=== PATIENT | male | born 1940 | race Caucasian/White ===

== ENCOUNTER 2024-03-17 12:42 | Emergency (ER) | payer MEDICARE, BC, SELFPAY ==
[2024-03-17 13:10] VITALS: BP 109/69; PULSE 75; RESP 18; TEMP 36.7; O2SAT 95; BMI 30.2
--- NOTE | 2024-03-17 14:05 | ED.GENADULT ---
HPI - General Adult General Date Seen: 03/17/24 Chief complaint: Urogenital Problems, Male Stated complaint: Blood in catheter Time Seen by Provider: 03/17/24 13:44 Source: patient and family Mode of arrival: ambulatory Limitations: no limitations History of Present Illness HPI narrative: Patient is an 83-year-old male here with his for evaluation of blood from his Montoya catheter. This was placed a little over a month ago secondary to urinary retention and then he was seen at [facility] on March 15 and it sounds like had a trial of void which he failed. Therefore the catheter was replaced. This morning he noted blood in the bag and they feel that the bag is not filling since then. He does not have abdominal pain although his notes that he did not have any pain even when he had 2600 mL of urine in his bladder. He has not had fevers or chills, flank pain or other complaints. He is on Plavix. Denies prior history of hematuria. Related Data Home Medications ?Medication ?Instructions ?Recorded ?Confirmed amlodipine 5 mg tablet 5 mg PO DAILY 03/17/24 03/17/24 atorvastatin 10 mg tablet 10 mg PO QHS 03/17/24 03/17/24 chlorthalidone 25 mg tablet 25 mg PO DAILY 03/17/24 03/17/24 cholecalciferol (vitamin D3) 50 50 mcg PO DAILY 03/17/24 03/17/24 mcg (2,000 unit) capsule clopidogrel 75 mg tablet 75 mg PO DAILY 03/17/24 03/17/24 dorzolamide 2 % eye drops 1 drp ophthalmic (eye) BID 03/17/24 03/17/24 finasteride 5 mg tablet (Proscar) 5 mg PO DAILY 03/17/24 03/17/24 losartan 100 mg tablet 100 mg PO DAILY 03/17/24 03/17/24 super beta prostate 03/17/24 tamsulosin 0.4 mg capsule (Flomax) 0.8 mg PO DAILY 03/17/24 03/17/24 Allergies Allergy/AdvReac Type Severity Reaction Status Date / Time amlodipine AdvReac Mild Verified 03/17/24 13:17 labetalol AdvReac Mild Dizziness Verified 03/17/24 13:17 omeprazole AdvReac Mild Rash Verified 03/17/24 13:17 Review of Systems Status of ROS: Reports: 6 or more systems reviewed and unremarkable except as noted in History and below Exam Narrative: Exam Narrative: Vital signs reviewed In general, alert, well-appearing male. He has a slight resting tremor. Abdomen: Soft nontender nondistended. No CVA tenderness. : Montoya catheter in place, dark red urine in the bag and no visible drainage from the catheter. Const: Vital Signs, click to edit/add: Vital Signs - 24 hr 03/17/24 13:10 Temperature 98.0 F Pulse Rate [Pulse Oximeter] 75 Respiratory Rate 18 Blood Pressure [Ri ght Upper Arm] 109/69 Pulse Oximetry 95 Oxygen Delivery Me thod Room Air Documenting provider has reviewed patient's vital signs: yes Course Course ED Course: We are going to swap out the catheter for 3 way, will see how much ongoing hematuria there is with the new catheter, consider continuous bladder irrigation if needed. UA pending. We did end up doing continuous bladder irrigation, he did not clear completely but at this time urine is pink rather than dark red. Urinalysis does show greater than 100 red cells and 10-25 white blood cells. Reasonable I think to treat for urinary tract infection. Patient has a family member who is a nurse, [place] and she will be able to help with re-irrigated montgomery of the catheter if needed. Reviewed reasons to be seen again, if the catheter is obstructed by clot, if new symptoms such as fever, flank pain, weakness, vomiting or if recurrent significant bleeding. Otherwise, urology follow-up as planned. Keflex prescribed from [facility]. Vital Signs Vital signs: Initial Vital Signs Temperature 98.0 F 03/17/24 13:10 Temperature Source Temporal Artery Scan 03/17/24 13:10 Pulse Rate 75 03/17/24 13:10 Pulse Rhythm Regular 03/17/24 13:10 Pulse Strength 3+ Normal 03/17/24 13:10 Respiratory Rate 18 03/17/24 13:10 Blood Pressure 109/69 03/17/24 13:10 Blood Pressure Mean 82 03/17/24 13:10 Blood Pressure Position Sitting 03/17/24 13:10 Pulse Oximetry 95 03/17/24 13:10 Oxygen Delivery Method Room Air 03/17/24 13:10 Vital Signs Temperature 98.0 F 03/17/24 13:10 Pulse Rate 75 03/17/24 13:10 Respiratory Rate 18 03/17/24 13:10 Blood Pressure 109/69 03/17/24 13:10 Pulse Oximetry 95 03/17/24 13:10 Oxygen Delivery Method Room Air 03/17/24 13:10 Temperature 98.0 F 03/17/24 13:10 Pulse Rate 75 03/17/24 13:10 Respiratory Rate 18 03/17/24 13:10 Blood Pressure 109/69 03/17/24 13:10 Pulse Oximetry 95 03/17/24 13:10 Oxygen Delivery Method Room Air 03/17/24 13:10 Medical Decision Making Lab Data Labs: Lab Results 03/17/24 Range/Units 14:30 Urine Color Red A (Yellow) Urine Appearance Turbid A (Clear) Urine pH 7.0 (5.0-8.5) Ur Specific [place] 1.020 (1.000-1.030) Urine Protein 3+ A (Negative) Urine Glucose (UA) Negative (Negative) Urine Ketones Negative (Negative) Urine Blood 3+ A (Negative) Urine Nitrite Negative (Negative) Urine Bilirubin Negative (Negative) Urine Urobilinogen 0.2 (0.2-1.0) Ur Leukocyte Esterase Trace A (Negative) Urine RBC >100 A (0-2) Urine WBC 10-25 A (0-5) Urine WBC Clumps Few A (None) Ur Squamous Epith Cells Few (None-Few) Urine Bacteria Moderate A (None) Discharge Plan Discharge Clinical Impression: Urinary tract infection, Hematuria Patient Disposition: Home, Self-Care Condition: Improved Instructions: Urinary Tract Infection in Men (DC), Hematuria (ED) Additional Instructions: Take antibiotic as prescribed. You will likely still see some blood in your urine over the next couple of days. As long as the urine is Teodoro-Aid colored or dining room hostess, you do not need to worry about this. If the urine is dark red again or you have clots which are to prevent in the catheter from draining, you will need to be seen again in the ER. If you have new symptoms such as fevers, flank pain, chills, vomiting, weakness or other worsening, you should likewise go to the ER. Prescriptions: No Action amlodipine 5 mg tablet 5 mg PO DAILY atorvastatin 10 mg tablet 10 mg PO QHS chlorthalidone 25 mg tablet 25 mg PO DAILY clopidogrel 75 mg tablet 75 mg PO DAILY losartan 100 mg tablet 100 mg PO DAILY cholecalciferol (vitamin D3) 50 mcg (2,000 unit) capsule 50 mcg PO DAILY super beta prostate finasteride [Proscar] 5 mg tablet 5 mg PO DAILY tamsulosin [Flomax] 0.4 mg capsule 0.8 mg PO DAILY dorzolamide 2 % drops 1 drp ophthalmic (eye) BID Follow Up/Referrals: Kemar Tanner MD [Primary Care Provider] - Stand Alone Forms: [employer] Info Instructions
[2024-03-17 15:03] LABS: Appearance Urine Turbid (Clear); Bilirubin Urine Negative (Negative); Blood Urine 3+ (Negative); Color Urine Red (Yellow); Glucose Urine Negative (Negative); Ketones Urine Negative (Negative); Leukocyte Esterase Urine Trace (Negative); Nitrite Urine Negative (Negative); Protein Urine 3+ (Negative); Urobilinogen Urine 0.2 (0.2-1.0)
[2024-03-17 15:20] LABS: Bacteria Urine Moderate; RBC Urine >100 (0-2); Squamous Epithelial Cell Urine Few (None-Few)
[2024-03-17 15:22] LABS: WBC Clumps Urine Few
== END 2024-03-17 16:15 | disposition home or self-care (01) ==
PROVIDERS: Emergency Provider Emergency Medicine; PCP Family Medicine
DX: R31.9 Hematuria, unspecified (principal); N39.0 Urinary tract infection, site not specified
CPT/HCPCS: 51702; 81001; 87086; 87186; 99283; 99284

== ENCOUNTER 2024-03-20 13:43 | Inpatient (IN) | payer MEDICARE, BC, SELFPAY ==
[2024-03-20] VITALS (33 sets, daily range): BP systolic 100–145; BP diastolic 47–115; PULSE 73–152; RESP 16–24; TEMP 36.8–37.1; O2SAT 72–99; BMI 30.2; BMI 28.9
--- NOTE | 2024-03-20 14:39 | ED_ITS ---
HPI - General Adult General Date Seen: 03/20/24 Chief complaint: Urogenital Problems, Male Stated complaint: weakness, chills, blood in urine Time Seen by Provider: 03/20/24 13:49 Source: patient and family Mode of arrival: ambulatory Limitations: no limitations History of Present Illness HPI narrative: Patient is an 83-year-old male who I saw a little under a week ago with hematuria. Urine looked possibly infected at that time, he does have an indwelling catheter which was placed about a month ago for urinary retention and he failed trial of void so was replaced on March 15. I put him on Keflex, we did bladder irrigation and urine was improved although not cleared at the time of his discharge. His reports that he has continued to have a little bit of bleeding although not nearly as significant. She did have to irrigate catheter once due to clot. Otherwise, she thinks it is draining fine. He has had a little bit of bleeding around the catheter at times, and sometimes has had some urethral discomfort. He has not had abdominal pain. Did have 1 episode of vomiting last week which did not recur. He says he is having bowel movements, does not feel constipated. No diarrhea or bloody stools. He has not had a fever or chills. She does note that he has become progressively weaker, he notes some nausea, decreased appetite although he has been trying to keep up wi th fluids. He takes Plavix, no other anticoagulation. He has not had chest pain, difficulty breathing, cough, or other upper respiratory symptoms. Related Data Home Medications ?Medication ?Instructions ?Recorded ?Confirmed amlodipine 5 mg tablet 5 mg PO DAILY 03/17/24 03/17/24 atorvastatin 10 mg tablet 10 mg PO QHS 03/17/24 03/17/24 chlorthalidone 25 mg tablet 25 mg PO DAILY 03/17/24 03/17/24 cholecalciferol (vitamin D3) 50 50 mcg PO DAILY 03/17/24 03/17/24 mcg (2,000 unit) capsule clopidogrel 75 mg tablet 75 mg PO DAILY 03/17/24 03/17/24 dorzolamide 2 % eye drops 1 drp ophthalmic (eye) BID 03/17/24 03/17/24 finasteride 5 mg tablet (Proscar) 5 mg PO DAILY 03/17/24 03/17/24 losartan 100 mg tablet 100 mg PO DAILY 03/17/24 03/17/24 super beta prostate 03/17/24 tamsulosin 0.4 mg capsule (Flomax) 0.8 mg PO DAILY 03/17/24 03/17/24 cephalexin 500 mg capsule 500 mg PO 3XD 03/20/24 03/20/24 Allergies Allergy/AdvReac Type Severity Reaction Status Date / Time amlodipine AdvReac Mild Verified 03/17/24 13:17 labetalol AdvReac Mild Dizziness Verified 03/17/24 13:17 omeprazole AdvReac Mild Rash Verified 03/17/24 13:17 Review of Systems Status of ROS: Reports: 10 or more systems reviewed and unremarkable except as noted in History and below [facility] Social History Smoking Status: Never smoker Do you use any of these nicotine containing products: None Second hand tobacco smoke exposure: No How often do you have a drink containing alcohol: never AUDIT-C Alcohol total score: 0 Non-prescribed substance use: denies use Exam Narrative: Exam Narrative: Vital signs as noted above. In general, an alert, nontoxic elderly male, looks fatigued and more worn out than last time I saw him. Head: Normocephalic, atraumatic. Eyes: Pupils are equal reactive. Extraocular movements are full. Conjunctivae are normal. ENT: Mucous membranes are slightly dry. Neck: Supple without lymphadenopathy. Heart: Tachycardic, irregularly irregular. No significant murmur. Lungs: Clear bilaterally. No increased work of breathing, crackles or wheezes. Abdomen: Soft and nontender. No organomegaly. Extremities: Well perfused. No edema. No calf tenderness. Pulses intact. Neurologic: Patient is alert and oriented to person and place. Speech is fluent. Face is symmetric. Moves all extremities equally. Baseline tremor noted in left upper extremity. Affect: Normal. Skin: Warm and dry. Well perfused. Const: Vital Signs, click to edit/add: Vital Signs - 24 hr 03/20/24 13:56 03/20/24 13:59 03/20/24 14:00 Temperature 98.8 F Pulse Rate 152 H 92 Pulse Rate [Pulse Oximeter] 109 H Respiratory Rate 24 Blood Pressure 119/59 L Blood Pressure [Ri ght Upper Arm] 119/59 L Pulse Oximetry 95 72 L 96 Oxygen Delivery Me thod Room Air 03/20/24 14:15 03/20/24 14:22 03/20/24 14:30 Temperature Pulse Rate 99 99 97 Pulse Rate [Pulse Oximeter] Respiratory Rate 18 Blood Pressure 111/47 L Blood Pressure [Ri ght Upper Arm] Pulse Oximetry 95 96 95 Oxygen Delivery Me thod 03/20/24 14:56 03/20/24 14:57 03/20/24 14:58 Temperature Pulse Rate 89 92 90 Pulse Rate [Pulse Oximeter] Respiratory Rate Blood Pressure 145/72 H Blood Pressure [Ri ght Upper Arm] Pulse Oximetry 96 95 95 Oxygen Delivery Me thod 03/20/24 15:00 03/20/24 15:02 03/20/24 15:15 Temperature Pulse Rate 89 89 84 Pulse Rate [Pulse Oximeter] Respiratory Rate Blood Pressure 100/64 Blood Pressure [Ri ght Upper Arm] Pulse Oximetry 95 94 95 Oxygen Delivery Me thod 03/20/24 15:21 03/20/24 15:30 03/20/24 15:42 Temperature Pulse Rate 81 80 83 Pulse Rate [Pulse Oximeter] Respiratory Rate 18 Blood Pressure 113/58 L 121/62 Blood Pressure [Ri ght Upper Arm] Pulse Oximetry 94 96 97 Oxygen Delivery Me thod 03/20/24 16:01 03/20/24 16:02 03/20/24 16:15 Temperature Pulse Rate 80 80 79 Pulse Rate [Pulse Oximeter] Respiratory Rate Blood Pressure 106/86 Blood Pressure [Ri ght Upper Arm] Pulse Oximetry 95 97 96 Oxygen Delivery Me thod 03/20/24 16:22 03/20/24 16:30 03/20/24 16:41 Temperature Pulse Rate 75 76 73 Pulse Rate [Pulse Oximeter] Respiratory Rate Blood Pressure 105/64 Blood Pressure [Ri ght Upper Arm] Pulse Oximetry 96 95 95 Oxygen Delivery Me thod 03/20/24 16:45 03/20/24 17:00 03/20/24 17:02 Temperature Pulse Rate 75 82 82 Pulse Rate [Pulse Oximeter] Respiratory Rate Blood Pressure 128/115 H Blood Pressure [Ri ght Upper Arm] Pulse Oximetry 96 98 98 Oxygen Delivery Me thod Documenting provider has reviewed patient's vital signs: yes Course Course ED Course: Patient presents with weakness, fatigue, anorexia nausea on the heels of hematuria last week. Diagnostic considerations would include anemia from blood loss, dehydration, infection related to prior UTI verses other, I did review the urine culture from his previous visit. This grew out a pansensitive E coli. Workup here today shows a markedly elevated white blood cell count of 23.7. The hemoglobin was 11.3. Metabolic panel shows a sodium of 126, chloride 95, BUN of 30, creatinine of 1.6. His blood sugar was 135, LFTs notable for a total bilirubin of 2.1 but otherwise normal. CRP elevated at 23.5. TSH was mildly elevated at 4.21, free T4 pending I anticipate this will be normal. Urinalysis continues to show greater than 100 red cells and 10-25 white blood cells, difficult to interpret in the setting of an indwelling catheter. Given is elevated white blood cell count and persistence of symptoms despite appropriate antibiotic treatment, I did do a CT scan today of the chest abdomen pelvis to look for an occult pneumonia, kidney stone, pyelonephritis, or other intra- abdominal process which might be contributing to his presentation today. By my review, this shows significant thickening of the bladder, I did not see any kidney stones, hydronephrosis or pneumonia. radiology read as follows:FINDINGS: The absence of intravenous contrast limits evaluation of solid organs and vasculature. Chest: Cardiovascular structures: Heart size is normal. The main pulmonary artery is mildly enlarged measuring 3.5 cm in diameter suggestive of pulmonary arterial hypertension. Normal caliber thoracic aorta. Severe coronary artery calcification. Mediastinum and celine: No mediastinal lymphadenopathy or evidence of hilar mass. Chest wall and axilla: Mild gynecomastia on the left. No axillary lymphadenopathy. Lungs: No suspicious pulmonary nodule. No consolidation, pleural effusion or pneumothorax. The central airways are clear. Abdomen and Pelvis: Liver: Unremarkable. Gallbladder and bile ducts: Unremarkable. Spleen: Unremarkable. Pancreas: Unremarkable. Adrenal glands: Unremarkable. Kidneys: There is mild haziness in the left renal hilum. The ureters appear normal. No kidney or ureteral stones and no hydronephrosis. GI tract: Colonic diverticulosis. No evidence of acute diverticulitis. No bowel obstruction or inflammation. Appendix is not definitely visualized. No inflammatory changes in the right lower quadrant to suggest acute appendicitis. Vascular structures: Atherosclerotic calcification of the abdominal aorta and common iliac arteries which are normal in caliber. Lymph nodes: Unremarkable. Miscellaneous: No ascites. No free air. There is a partially visualized 5.5 x 3.7 cm lipoma in the right sartorius muscle. Small fat containing umbilical hernia. Pelvic Organs: Diffuse urinary bladder wall thickening. A Montoya catheter is in place. A foci of gas density in the urinary bladder is likely related to recent instrumentation. There is a small amount of dense material in the urinary bladder due to either blood or injected contrast material. The prostate is enlarged. Bones: Flowing anterior osteophytes in the thoracic spine suggestive of DISH. The bones are diffusely demineralized. Degenerative changes in the lumbar spine and at the hips. No acute osseous abnormality. No suspicious bone lesion. IMPRESSION: 1. There is diffuse thickening of the urinary bladder wall which is nonspecific in the setting of chronic bladder outlet obstruction. The Montoya catheter is appropriately positioned. 2. There is a small amount of dense material within the urinary bladder which c ould be blood products or contrast material. 3. There is mild haziness of the fat in the left renal hilum raising the question of pyelonephritis. 4. No acute abnormality in the chest. 5. Mild enlargement of the main pulmonary artery is suggestive of pulmonary arterial hypertension. Patient feels somewhat better after fluids but still quite fatigued. I think given his age, marked leukocytosis, and failure to improve on antibiotics at home, he would be best served by admission to the hospital for IV antibiotics and observation for a day. He is agreeable to that. Discussed with Dr. Villalobos who will admit patient to hospitalist service. Blood culture was ordered and he was given a g of Rocephin IV. Vital Signs Vital signs: Initial Vital Signs Temperature 98.8 F 03/20/24 13:56 Temperature Source Temporal Artery Scan 03/20/24 13:56 Pulse Rate 109 H 03/20/24 13:56 Respiratory Rate 03/20/24 13:56 Blood Pressure 119/59 L 03/20/24 13:56 Blood Pressure Mean 79 03/20/24 13:56 Blood Pressure Position Sitting 03/20/24 13:56 Pulse Oximetry 95 03/20/24 13:56 Oxygen Delivery Method Room Air 03/20/24 13:56 Vital Signs Temperature 98.8 F 03/20/24 13:56 Pulse Rate 109 H 03/20/24 13:56 Respiratory Rate 03/20/24 13:56 Blood Pressure 119/59 L 03/20/24 13:56 Pulse Oximetry 95 03/20/24 13:56 Oxygen Delivery Method Room Air 03/20/24 13:56 Temperature 98.8 F 03/20/24 13:56 Pulse Rate 82 03/20/24 17:02 Respiratory Rate 18 03/20/24 15:42 Blood Pressure 128/115 H 03/20/24 17:02 Pulse Oximetry 98 03/20/24 17:02 Oxygen Delivery Method Room Air 03/20/24 13:56 Medications Administered Medications: Discontinued Medications Generic Name Dose Route Start Last Admin Trade Name Freq PRN Reason Stop Dose Admin Sodium Chloride 1,000 mls @ 1,000 mls/hr 03/20/24 14:15 03/20/24 16:18 0.9 % Sodium Chloride 1000 Ml IV 03/20/24 15:14 Infused .Q1H DERICK Infusion Ondansetron HCl 4 mg 03/20/24 14:36 03/20/24 14:59 Ondansetron 2 Mg/Ml Inj IVP 03/20/24 14:37 4 mg ONCE ONE Administration Medical Decision Making Lab Data Labs: Lab Results 03/20/24 03/20/24 Range/Units 14:35 15:35 WBC 23.68 H (4.50-11.00) K/uL RBC 3.75 L (4.30-5.90) m/uL Hgb 11.3 L (13.5-17.5) gm/dL Hct 33.0 L (37.0-53.0) % MCV 88 (80-100) fL MCH 30 (26-34) pg MCHC 34 (32-36) gm/dL RDW Coeff of Rossy 13.0 (11.5-15.5) % Plt Count 238 (140-440) K/uL Neut % (Auto) 86.8 H (42.0-72.0) % Lymph % (Auto) 4.7 L (20-44) % Steele % (Auto) 8.0 (0.0-11.0) % Eos % (Auto) 0.0 (0.0-7.0) % Baso % (Auto) 0.0 (0.0-3.0) % Neut # (Auto) 20.60 H (1.7-7.0) K/uL Lymph # (Auto) 1.10 (0.90-2.90) K/uL Steele # (Auto) 1.90 H (0.00-0.90) K/UL Eos # (Auto) 0.00 (0.00-0.50) K/uL Baso # (Auto) 0.00 (0.00-0.30) K/uL Abs Immat Gran (auto) 0.10 (0.00-0.30) K/uL Imm/Tot Granulo (auto) 0.5 % Sodium 126 L (135-149) mmol/L Potassium 3.6 (3.6-5.1) mmol/L Chloride 95 L (96-114) mmol/L Carbon Dioxide 22 (20-32) mmol/L Anion Gap 9 (7-15) mEq/L BUN 30 (7-30) mg/dL Creatinine 1.6 H (0.5-1.5) mg/dL Estimated Creat Clear 39.96 Estimated GFR 42 ml/min Glucose 135 H (60-115) mg/dL Lactate 1.3 (0.5-1.9) mmol/L Calcium 8.9 (8.4-10.6) mg/dL Total Bilirubin 2.1 H (0.1-1.5) mg/dL Direct Bilirubin 0.4 (0.0-0.5) mg/dL AST 21 (12-35) U/L ALT 16 (4-50) U/L Alkaline Phosphatase 66 (40-150) U/L C-Reactive Protein 23.5 H (0.5-1.0) mg/dL Total Protein 7.3 (6.0-8.3) g/dL Albumin 4.2 (3.3-5.0) g/dL TSH 4.210 H (0.270-4.200) uIU/mL Urine Color Red A (Yellow) Urine Appearance Clear (Clear) Urine pH 6.0 (5.0-8.5) Ur Specific [place] 1.025 (1.000-1.030) Urine Protein 3+ A (Negative) Urine Glucose (UA) Negative (Negative) Urine Ketones Negative (Negative) Urine Blood 3+ A (Negative) Urine Nitrite Negative (Negative) Urine Bilirubin Negative (Negative) Urine Urobilinogen 2.0 A (0.2-1.0) Ur Leukocyte Esterase Trace A (Negative) Urine RBC >100 A (0-2) Urine WBC 10-25 A (0-5) Ur Squamous Epith Cells None (None-Few) Urine Bacteria Few A (None) POC Troponin I 0.03 (0.01-0.04) ng/ml Discharge Plan Discharge Clinical Impression: Acute pyelonephritis, Weakness Patient Disposition: Admitted As Observation Condition: Stable
[2024-03-20 14:45] LABS: Lactate Sepsis w/Reflex* 1.3 mmol/L (0.5-1.9)
[2024-03-20 14:47] LABS: Hemoglobin* 11.3 gm/dL (13.5-17.5); Immature Granulocytes Pct Auto 0.5 %; Lymphocytes Percent Auto 4.7 % (20-44); Mean Corpuscular HGB Conc 34 gm/dL (32-36); Mean Corpuscular Hemoglobin 30 pg (26-34); Mean Corpuscular Volume 88 fL (80-100); Neutrophils Percent Auto 86.8 % (42.0-72.0); Platelet Count* 238 K/uL (140-440); Red Blood Count 3.75 m/uL (4.30-5.90); White Blood Count* 23.68 K/uL (4.50-11.00)
[2024-03-20 14:50] LABS: Slide Review Reflex No
[2024-03-20] MEDS: 0.9 % SODIUM CHLORIDE 1000 ml 1,000 ML IV (14:58)
[2024-03-20] MEDS: ONDANSETRON 2 MG/ML inj 4 MG IVP (14:59)
[2024-03-20 15:00] LABS: Albumin* 4.2 g/dL (3.3-5.0); Chloride* 95 mmol/L (96-114); Sodium* 126 mmol/L (135-149)
[2024-03-20 15:01] LABS: Potassium* 3.6 mmol/L (3.6-5.1)
[2024-03-20 15:02] LABS: Creatinine* 1.6 mg/dL (0.5-1.5); Est. Creatinine Clearance* 39.96; Estimated Glomerular Filt Rate 42 ml/min
[2024-03-20 15:03] LABS: Alanine Aminotransferase* 16 U/L (4-50); Alkaline Phosphatase* 66 U/L (40-150); Anion Gap 9 mEq/L (7-15); Aspartate Amino Transferase* 21 U/L (12-35); Bilirubin Direct* 0.4 mg/dL (0.0-0.5); Bilirubin Total* 2.1 mg/dL (0.1-1.5); Blood Urea Nitrogen* 30 mg/dL (7-30); Carbon Dioxide* 22 mmol/L (20-32); Glucose* 135 mg/dL (60-115); Total Protein* 7.3 g/dL (6.0-8.3)
--- NOTE | 2024-03-20 15:03 | CRLHL7_ITS ---
For Patients: As a result of the 21st Century Cures Act, medical imaging exams and procedure reports are released immediately into your electronic medical record. You may view this report before your referring provider. If you have questions, please contact your health care provider. INDICATION: Hematuria, weakness and elevated white blood cell count. History of UTI. New Montoya catheter inserted about 1 week ago. TECHNIQUE: Noncontrast CT chest, abdomen and pelvis COMPARISON: Chest CT 12/01/2016. FINDINGS: The absence of intravenous contrast limits evaluation of solid organs and vasculature. Chest: Cardiovascular structures: Heart size is normal. The main pulmonary artery is mildly enlarged measuring 3.5 cm in diameter suggestive of pulmonary arterial hypertension. Normal caliber thoracic aorta. Severe coronary artery calcification. Mediastinum and celine: No mediastinal lymphadenopathy or evidence of hilar mass. Chest wall and axilla: Mild gynecomastia on the left. No axillary lymphadenopathy. Lungs: No suspicious pulmonary nodule. No consolidation, pleural effusion or pneumothorax. The central airways are clear. Abdomen and Pelvis: Liver: Unremarkable. Gallbladder and bile ducts: Unremarkable. Spleen: Unremarkable. Pancreas: Unremarkable. Adrenal glands: Unremarkable. Kidneys: There is mild haziness in the left renal hilum. The ureters appear normal. No kidney or ureteral stones and no hydronephrosis. GI tract: Colonic diverticulosis. No evidence of acute diverticulitis. No bowel obstruction or inflammation. Appendix is not definitely visualized. No inflammatory changes in the right lower quadrant to suggest acute appendicitis. Vascular structures: Atherosclerotic calcification of the abdominal aorta and common iliac arteries which are normal in caliber. Lymph nodes: Unremarkable. Miscellaneous: No ascites. No free air. There is a partially visualized 5.5 x 3.7 cm lipoma in the right sartorius muscle. Small fat containing umbilical hernia. Pelvic Organs: Diffuse urinary bladder wall thickening. A Montoya catheter is in place. A foci of gas density in the urinary bladder is likely related to recent instrumentation. There is a small amount of dense material in the urinary bladder due to either blood or injected contrast material. The prostate is enlarged. Bones: Flowing anterior osteophytes in the thoracic spine suggestive of DISH. The bones are diffusely demineralized. Degenerative changes in the lumbar spine and at the hips. No acute osseous abnormality. No suspicious bone lesion. IMPRESSION: 1. There is diffuse thickening of the urinary bladder wall which is nonspecific in the setting of chronic bladder outlet obstruction. The Montoya catheter is appropriately positioned. 2. There is a small amount of dense material within the urinary bladder which could be blood products or contrast material. 3. There is mild haziness of the fat in the left renal hilum raising the question of pyelonephritis. 4. No acute abnormality in the chest. 5. Mild enlargement of the main pulmonary artery is suggestive of pulmonary arterial hypertension. Please note that all CT scans at this facility use dose modulation, iterative reconstruction, and/or weight-based dosing when appropriate to reduce radiation dose to as low as reasonably achievable. Dictated by Aminta Benjamin MD @ 03/20/2024 4:45:48 PM (Electronically Signed)
[2024-03-20 15:04] LABS: Calcium* 8.9 mg/dL (8.4-10.6)
[2024-03-20 15:06] LABS: Troponin, Point-of-Care* 0.03 ng/ml (0.01-0.04)
[2024-03-20 15:19] LABS: C Reactive Protein* 23.5 mg/dL (0.5-1.0)
[2024-03-20 16:01] LABS: Appearance Urine Clear (Clear); Bilirubin Urine Negative (Negative); Blood Urine 3+ (Negative); Glucose Urine Negative (Negative); Ketones Urine Negative (Negative); Leukocyte Esterase Urine Trace (Negative); Nitrite Urine Negative (Negative); Protein Urine 3+ (Negative); Specific Gravity Urine 1.025 (1.000-1.030)
[2024-03-20 16:07] LABS: Bacteria Urine Few; Color Urine Red (Yellow); RBC Urine >100 (0-2)
[2024-03-20 17:27] LABS: Free T4 Free Thyroxine* 1.67 ng/dL (0.70-1.85)
[2024-03-20] MEDS: cefTRIAXone 1 GM in 0.9 % SODIUM CHLORIDE Mini-bag 100 ML IVPB ×2 (17:36→19:02)
--- NOTE | 2024-03-20 18:14 | P.IMHP_ITS ---
Hospitalist- H&P: HPI History of Present Illness Date Seen: 03/20/24 Chief complaint: weakness, chills, blood in urine Narrative: Rad Aburto is a 83 year old male admitted with a 1 month history of urinary retention treated with Montoya catheter, 3 day history of hematuria and pansensit kev E coli UTI treated with Keflex and now a 3 day history of progressive weakness and loss of appetite. On 02/16/2024 he was having difficulties with voiding. He presented to the clinic where he was found to have 2600 mL of retained urine in his bladder. Montoya catheter was placed. Further next month this worked well for him. He was feeling well. He was able to travel and manage his catheter without difficulties. On March 15 he was seen by his urologist for trial of voiding and this failed so catheter was placed again. He remains on finasteride and tamsulosin for his urinary retention On March 17 he presented to the emergency department with grossly bloody urine. He received continuous bladder irrigation in the emergency department which cleared his hematuria. At that time he was suspected of having a urinary tract infection. He was started on Keflex her for this. Over the next 3 days he has been progressively getting worse. Is bloody urine returned he has been getting weaker, he has not been eating much, he vomited once 2 days ago, he has had some chills but no fever, and he has had bladder spasms. He normally his independent with ambulation and uses a cane. In the last few days he has gotten weak to the point where he can hardly walk at all. He ambulates slowly and he has a tremor primarily in his left hand. He has had a previous stroke causing a left visual field cut but no other notable motor disability. Review of Systems Narrative: Prior to the last 3 days he has been generally doing well with his catheter and otherwise feeling well [facility] Medical History (Updated 03/20/24 @ 18:28 by Moo Villalobos MD) Acute kidney injury superimposed on chronic kidney disease ?N17.9 - Acute kidney failure, unspecified (ICD-10) ?N18.9 - Chronic kidney disease, unspecified (ICD-10) Sensorineural hearing loss ?H90.5 - Unspecified sensorineural hearing loss (ICD-10) Elevated PSA ?R97.20 - Elevated prostate specific antigen [PSA] (ICD-10) Hyperlipidemia ?E78.5 - Hyperlipidemia, unspecified (ICD-10) Hypertension ?I10 - Essential (primary) hypertension (ICD-10) Occipital stroke ?I63.9 - Cerebral infarction, unspecified (ICD-10) Urinary retention ?R33.9 - Retention of urine, unspecified (ICD-10) Tremor ?R25.1 - Tremor, unspecified (ICD-10) Surgical History (Updated 03/20/24 @ 18:28 by Moo Villalobos MD) H/O cataract extraction ?Z98.49 - Cataract extraction status, unspecified eye (ICD-10) History of arthroplasty of left knee ?Z96.652 - Presence of left artificial knee joint (ICD-10) S/P arthroscopy of left shoulder ?Z98.890 - Other specified postprocedural states (ICD-10) Family History (Updated 03/20/24 @ 18:29 by Moo Villalobos MD) Other Parkinsons disease Social History (Updated 03/20/24 @ 18:30 by Moo Villalobos MD) Narrative: 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 Code status is full. He does not drink. Remote history of smoking. Smoking Status: Never smoker Do you use any of these nicotine containing products: None Second hand tobacco smoke exposure: No How often do you have a drink containing alcohol: never AUDIT-C Alcohol total score: 0 Non-prescribed substance use: denies use Meds Home Medications and Allergies Home Medications ?Medication ?Instructions ?Recorded ?Confirmed ?Type amlodipine 5 mg tablet 5 mg PO DAILY 03/17/24 03/17/24 History atorvastatin 10 mg tablet 10 mg PO QHS 03/17/24 03/17/24 History chlorthalidone 25 mg tablet 25 mg PO DAILY 03/17/24 03/17/24 History cholecalciferol (vitamin D3) 50 50 mcg PO DAILY 03/17/24 03/17/24 History mcg (2,000 unit) capsule clopidogrel 75 mg tablet 75 mg PO DAILY 03/17/24 03/17/24 History dorzolamide 2 % eye drops 1 drp ophthalmic (eye) BID 03/17/24 03/17/24 History finasteride 5 mg tablet (Proscar) 5 mg PO DAILY 03/17/24 03/17/24 History losartan 100 mg tablet 100 mg PO DAILY 03/17/24 03/17/24 History super beta prostate 03/17/24 History tamsulosin 0.4 mg capsule (Flomax) 0.8 mg PO DAILY 03/17/24 03/17/24 History cephalexin 500 mg capsule 500 mg PO 3XD 03/20/24 03/20/24 History Allergies Allergy/AdvReac Type Severity Reaction Status Date / Time amlodipine AdvReac Mild Verified 03/17/24 13:17 labetalol AdvReac Mild Dizziness Verified 03/17/24 13:17 omeprazole AdvReac Mild Rash Verified 03/17/24 13:17 Exam Narrative: Exam Narrative: He is alert and appears in no distress. He is oriented to his circumstances. He gives his own history with his giving most of the details in his history. Head is without trauma. Eyes are normal status post cataract surgery. He has a left visual field cut in both eyes. Face without asymmetry. Oropharynx with dry mucous membranes. Neck is supple without mass or adenopathy. Respirations are clear to auscultation. Cardiovascular: S1, S2, regular rate and rhythm. No murmur gallop or rub. Abdomen: Bowel sounds active. Abdomen is soft without tenderness or mass. Upper extremities are normal in appearance. Left hand has a coarse tremor in the left hand, mostly at rest. No marked rigidity. Some bradykinesia. Catheters placed draining a maroon-colored urine. Extremities without edema. Intact pedal pulses. Symmetric and full strength in all 4 extremities. Tremor only seen in left hand but bradykinesia in all 4 extremities Const: Vital Signs, click to edit/add: Vital Signs - 24 hr 03/20/24 13:56 03/20/24 13:59 03/20/24 14:00 Temperature 98.8 F Pulse Rate 152 H 92 Pulse Rate [Pulse Oximeter] 109 H Respiratory Rate 24 Blood Pressure 119/59 L Blood Pressure [Ri ght Upper Arm] 119/59 L Pulse Oximetry 95 72 L 96 Oxygen Delivery Me thod Room Air 03/20/24 14:15 03/20/24 14:22 03/20/24 14:30 Temperature Pulse Rate 99 99 97 Pulse Rate [Pulse Oximeter] Respiratory Rate 18 Blood Pressure 111/47 L Blood Pressure [Ri ght Upper Arm] Pulse Oximetry 95 96 95 Oxygen Delivery Me thod 03/20/24 14:56 03/20/24 14:57 03/20/24 14:58 Temperature Pulse Rate 89 92 90 Pulse Rate [Pulse Oximeter] Respiratory Rate Blood Pressure 145/72 H Blood Pressure [Ri ght Upper Arm] Pulse Oximetry 96 95 95 Oxygen Delivery Me thod 03/20/24 15:00 03/20/24 15:02 03/20/24 15:15 Temperature Pulse Rate 89 89 84 Pulse Rate [Pulse Oximeter] Respiratory Rate Blood Pressure 100/64 Blood Pressure [Ri ght Upper Arm] Pulse Oximetry 95 94 95 Oxygen Delivery Me thod 03/20/24 15:21 03/20/24 15:30 03/20/24 15:42 Temperature Pulse Rate 81 80 83 Pulse Rate [Pulse Oximeter] Respiratory Rate 18 Blood Pressure 113/58 L 121/62 Blood Pressure [Ri ght Upper Arm] Pulse Oximetry 94 96 97 Oxygen Delivery Md thod 03/20/24 16:01 03/20/24 16:02 03/20/24 16:15 Temperature Pulse Rate 80 80 79 Pulse Rate [Pulse Oximeter] Respiratory Rate Blood Pressure 106/86 Blood Pressure [Ri ght Upper Arm] Pulse Oximetry 95 97 96 Oxygen Delivery Md thod 03/20/24 16:22 03/20/24 16:30 03/20/24 16:41 Temperature Pulse Rate 75 76 73 Pulse Rate [Pulse Oximeter] Respiratory Rate Blood Pressure 105/64 Blood Pressure [Ri ght Upper Arm] Pulse Oximetry 96 95 95 Oxygen Delivery Md thod 03/20/24 16:45 03/20/24 17:00 03/20/24 17:02 Temperature Pulse Rate 75 82 82 Pulse Rate [Pulse Oximeter] Respiratory Rate Blood Pressure 128/115 H Blood Pressure [Ri ght Upper Arm] Pulse Oximetry 96 98 98 Oxygen Delivery Md thod 03/20/24 17:03 03/20/24 17:15 03/20/24 17:22 Temperature Pulse Rate 80 77 83 Pulse Rate [Pulse Oximeter] Respiratory Rate Blood Pressure 107/79 Blood Pressure [Ri ght Upper Arm] Pulse Oximetry 97 96 98 Oxygen Delivery Md thod 03/20/24 17:30 03/20/24 17:43 03/20/24 17:45 Temperature Pulse Rate 84 78 80 Pulse Rate [Pulse Oximeter] Respiratory Rate Blood Pressure 111/66 Blood Pressure [Ri ght Upper Arm] Pulse Oximetry 98 96 97 Oxygen Delivery Me thod Documenting provider has reviewed patient's vital signs: yes Hospitalist - H&P: Result Labs Labs: Short CBC 03/20/24 Range/Units 14:35 WBC 23.68 H (4.50-11.00) K/uL Hgb 11.3 L (13.5-17.5) gm/dL Hct 33.0 L (37.0-53.0) % Plt Count 238 (140-440) K/uL BMP 03/20/24 14:35 Sodium 126 L Potassium 3.6 Chloride 95 L Carbon Dioxide 22 BUN 30 Creatinine 1.6 H Glucose 135 H Calcium 8.9 Liver Function 03/20/24 Range/Units 14:35 Total Bilirubin 2.1 H (0.1-1.5) mg/dL Direct Bilirubin 0.4 (0.0-0.5) mg/dL AST 21 (12-35) U/L ALT 16 (4-50) U/L Alkaline Phosphatase 66 (40-150) U/L Albumin 4.2 (3.3-5.0) g/dL Urine 03/20/24 Range/Units 15:35 Urine Color Red A (Yellow) Urine Appearance Clear (Clear) Urine pH 6.0 (5.0-8.5) Ur Specific [place] 1.025 (1.000-1.030) Urine Protein 3+ A (Negative) Urine Glucose (UA) Negative (Negative) Imaging CT Chest/Ab/Pelvis: Radiologist's impression: INDICATION: Hematuria, weakness and elevated white blood cell count. History of UTI. New Montoya catheter inserted about 1 week ago. TECHNIQUE: Noncontrast CT chest, abdomen and pelvis COMPARISON: Chest CT 12/01/2016. FINDINGS: The absence of intravenous contrast limits evaluation of solid organs and vasculature. Chest: Cardiovascular structures: Heart size is normal. The main pulmonary artery is mildly enlarged measuring 3.5 cm in diameter suggestive of pulmonary arterial hypertension. Normal caliber thoracic aorta. Severe coronary artery calcification. Mediastinum and celine: No mediastinal lymphadenopathy or evidence of hilar mass. Chest wall and axilla: Mild gynecomastia on the left. No axillary lymphadenopathy. Lungs: No suspicious pulmonary nodule. No consolidation, pleural effusion or pneumothorax. The central airways are clear. Abdomen and Pelvis: Liver: Unremarkable. Gallbladder and bile ducts: Unremarkable. Spleen: Unremarkable. Pancreas: Unremarkable. Adrenal glands: Unremarkable. Kidneys: There is mild haziness in the left renal hilum. The ureters appear normal. No kidney or ureteral stones and no hydronephrosis. GI tract: Colonic diverticulosis. No evidence of acute diverticulitis. No bowel obstruction or inflammation. Appendix is not definitely visualized. No inflammatory changes in the right lower quadrant to suggest acute appendicitis. Vascular structures: Atherosclerotic calcification of the abdominal aorta and common iliac arteries which are normal in caliber. Lymph nodes: Unremarkable. Miscellaneous: No ascites. No free air. There is a partially visualized 5.5 x 3.7 cm lipoma in the right sartorius muscle. Small fat containing umbilical hernia. Pelvic Organs: Diffuse urinary bladder wall thickening. A Montoya catheter is in place. A foci of gas density in the urinary bladder is likely related to recent instrumentation. There is a small amount of dense material in the urinary bladder due to either blood or injected contrast material. The prostate is enlarged. Bones: Flowing anterior osteophytes in the thoracic spine suggestive of DISH. The bones are diffusely demineralized. Degenerative changes in the lumbar spine and at the hips. No acute osseous abnormality. No suspicious bone lesion. IMPRESSION: 1. There is diffuse thickening of the urinary bladder wall which is nonspecific in the setting of chronic bladder outlet obstruction. The Montoya catheter is appropriately positioned. 2. There is a small amount of dense material within the urinary bladder which could be blood products or contrast material. 3. There is mild haziness of the fat in the left renal hilum raising the question of pyelonephritis. 4. No acute abnormality in the chest. 5. Mild enlargement of the main pulmonary artery is suggestive of pulmonary arterial hypertension. Assessment and Plan Assessment and plan (1) Acute pyelonephritis: Problem comment: Despite appropriate outpatient therapy for pansensitive E coli UTI with Keflex he appears to be more ill. CT scan suggests pyelonephritis as well as thickened bladder wall with hemorrhagic cystitis. Failure of outpatient therapy over the last 3 days. Status: Acute (2) Weakness: Problem comment: Acute on chronic weakness associated with current acute infection Status: Acute (3) Urinary retention: Problem comment: On 02/14/2020 for had 2600 mL of retained urine. On March 15 failed a trial of voiding Status: Acute (4) Hyponatremia: Problem comment: Likely due to acute illness with poor oral solute intake but ongoing water ingestion. Status: Acute (5) Acute kidney injury superimposed on chronic kidney disease: Problem comment: Creatinine today is 1.6. Baseline creatinine is 1.2 Status: Acute (6) Hypertension: Problem comment: Hold antihypertensives while acutely ill. Reassess daily Status: Acute (7) Tremor: Problem comment: Chronic tremor of the left hand suspicious for parkinsonian type course resting tremor. Will give a trial of Sinemet to see if this is beneficial. Status: Acute (8) Hematuria: Problem comment: Hemorrhagic cystitis complicated by indwelling Montoya catheter Status: Acute Plan Patient is admitted to the hospital for IV antibiotics for his pyelonephritis and hemorrhagic cystitis and ongoing evaluation and management of the multiple other problems noted above. Total Time Spent Total Time Spent: Total time spent today is 90 minutes
[2024-03-20] MEDS: ATORVASTATIN 10 MG TABLET PO (20:18)
[2024-03-20] MEDS: SODIUM CHLORIDE 0.9 % (FLUSH) 10 ML SYRINGE 5 ML IVF (20:18)
[2024-03-20] MEDS: CARBIDOPA-LEVODOPA 25-100 TABLET 1 TAB PO (20:32)
[2024-03-20] MEDS: DORZOLAMIDE HCL 2 % OPHTH DROP 1 DROP EYE-BOTH (20:41)
[2024-03-20] MEDS: 0.9 % SODIUM CHLORIDE 250 ml IV (21:00)
--- NOTE | 2024-03-20 22:30 | PC.NURSE ---
End of Shift: Patient admitted to 256. Pleasant and cooperative. Afebrile. Up with SBA and cane. Montoya patent with 625 mL of bloody urine output. No clots noted. C/o pain with bladder spasms. Tolerating fluids and applesauce with no nausea.
[2024-03-20] MEDS: CALCIUM CARBONATE 500 MG CHEW PO (23:49)
[2024-03-21] VITALS (8 sets, daily range): BP systolic 91–116; BP diastolic 55–80; PULSE 66–96; RESP 18–28; TEMP 36.4–37.4; O2SAT 94–97
--- NOTE | 2024-03-21 07:07 | PC.NURSE ---
End of shift: Pleasant and cooperative with cares. Denies any pain this shift but reports intermittent bladder spasms. العلي patent, gross hematuria continues, no clots noted in العلي bag or tubing. SBA with ambulation
[2024-03-21 07:25] LABS: Basophils Percent Auto 0.1 % (0.0-3.0); Eosinophils Percent Auto 0.1 % (0.0-7.0); Hematocrit 30.4 % (37.0-53.0); Hemoglobin* 10.4 gm/dL (13.5-17.5); Immature Granulocytes Pct Auto 0.4 %; Lymphocytes Percent Auto 5.7 % (20-44); Mean Corpuscular HGB Conc 34 gm/dL (32-36); Mean Corpuscular Hemoglobin 30 pg (26-34); Mean Corpuscular Volume 88 fL (80-100); Monocytes Percent Auto 6.5 % (0.0-11.0); Neutrophils Percent Auto 87.2 % (42.0-72.0); Platelet Count* 217 K/uL (140-440); RDW Coefficient of Variation % 12.7 % (11.5-15.5); Red Blood Count 3.45 m/uL (4.30-5.90); White Blood Count* 19.78 K/uL (4.50-11.00)
[2024-03-21 07:33] LABS: Chloride* 97 mmol/L (96-114); Potassium* 3.1 mmol/L (3.6-5.1); Sodium* 127 mmol/L (135-149)
[2024-03-21 07:36] LABS: Anion Gap 6 mEq/L (7-15); Blood Urea Nitrogen* 24 mg/dL (7-30); Carbon Dioxide* 24 mmol/L (20-32); Creatinine* 1.4 mg/dL (0.5-1.5); Est. Creatinine Clearance* 45.67; Estimated Glomerular Filt Rate 50 ml/min
[2024-03-21 07:37] LABS: Calcium* 8.7 mg/dL (8.4-10.6); Glucose* 106 mg/dL (60-115)
[2024-03-21 07:43] LABS: Slide Review Reflex No
[2024-03-21 08:03] LABS: C Reactive Protein* 22.4 mg/dL (0.5-1.0)
[2024-03-21] MEDS: TAMSULOSIN HCL 0.4 MG CAPSULE 0.8 MG PO (09:18)
[2024-03-21] MEDS: FINASTERIDE 5 MG TABLET PO (09:19)
[2024-03-21] MEDS: CARBIDOPA-LEVODOPA 25-100 TABLET 1 TAB PO ×4 (09:19→20:15)
[2024-03-21] MEDS: CLOPIDOGREL 75 MG TABLET PO (09:19)
[2024-03-21] MEDS: SODIUM CHLORIDE 0.9 % (FLUSH) 10 ML SYRINGE 5 ML IVF ×2 (09:21→20:15)
[2024-03-21] MEDS: POTASSIUM BICARB 25 MEQ EFFERVESCENT TAB PO ×2 (09:44→11:28)
[2024-03-21] MEDS: oxyBUTYnin chloride 5 MG TABLET PO ×2 (11:29→20:16)
[2024-03-21] MEDS: DORZOLAMIDE/TIMOLOL 2-0.5% OPHTH 1 DROP EYE-BOTH ×2 (11:30→20:15)
--- NOTE | 2024-03-21 13:23 | REH.OT ---
Patient will be evaluated by OT 03/22/24. aware
[2024-03-21] MEDS: cefTRIAXone 2 GM in 0.9 % SODIUM CHLORIDE Mini-bag 100 ML IVPB (13:42)
[2024-03-21] MEDS: 0.9 % SODIUM CHLORIDE 250 ml IV (13:43)
[2024-03-21] MEDS: ATORVASTATIN 10 MG TABLET PO (17:38)
--- NOTE | 2024-03-21 17:56 | PM.IMPN1 ---
Progress Note: A&P Assessment and plan (1) Acute pyelonephritis: Problem details: Despite appropriate outpatient therapy for pansensitive E coli UTI with Keflex he appears to be more ill. CT scan suggests pyelonephritis as well as thickened bladder wall with hemorrhagic cystitis. Failure of outpatient therapy over the last 3 days. - 03/21 now improving with ceftriaxone. I note that his blood culture is negative so far. I suspect since this is pyelonephritis and hemorrhagic bladder with a very thick bladder wall that it is taking a little longer for the antibiotics to have an affect on his symptoms. Status: Acute (2) Hematuria: Problem details: Hemorrhagic cystitis complicated by indwelling Montoya catheter Status: Acute (3) Weakness: Problem details: Acute on chronic weakness associated with current acute infection - PT and OT to assess. Status: Acute (4) Urinary retention: Problem details: On 02/14/2020 for had 2600 mL of retained urine. On March 15 failed a trial of voiding Status: Chronic (5) Hyponatremia: Problem details: Likely due to acute illness with poor oral solute intake but ongoing water ingestion. - 126 to 127 overnight. Giving a bolus of normal saline today. Recheck in the morning. Status: Acute (6) Acute kidney injury superimposed on chronic kidney disease: Problem details: Creatinine on admission was 1.6. Baseline creatinine is 1.2. - 03/21 creatinine is 1.4. Suspect prerenal, dehydration. Give another bolus IV fluid today. Status: Acute (7) Hypertension: Problem details: Hold antihypertensives while acutely ill. Reassess daily Status: Acute (8) Tremor: Problem details: Chronic tremor of the left hand suspicious for parkinsonian type course resting tremor. Will give a trial of Sinemet to see if this is beneficial. Status: Acute (9) Bladder spasms: Problem details: These are likely secondary to extremely thickened bladder wall, hemorrhagic cystitis, and debris in the bladder. There are no clots seen in the urine or Montoya so I do not think irrigation would be helpful. Start oxybutynin. Status: Acute (10) Hypokalemia: Problem details: Replace orally and recheck in the morning. Status: Acute Subjective Time Seen by Provider: 08:13 Date Seen: 03/21/24 Interval history: Rad tells me he feels a bit better. His and daughter (who is one of our ER doctors) came in mid morning. I went back and spoke with them. They noted that he seemed a little bit better this morning, but was having a lot of bladder spasms and asked if there was anything we could do for that. Exam Narrative: Exam Narrative: General: No acute distress. Sleeping, arousable, oriented x3. He is able to give me history. When his and daughter and I were conversing, he slept and did not engage in conversation. No pallor. No jaundice. Oropharynx: Clear. Mucous membranes moist. Cardiovascular: Regular rate and rhythm. No murmurs, gallops, or rubs. Respiratory: Clear to auscultation bilaterally. No wheezes or crackles. Abdomen: Bowel sounds present. Soft, nondistended, nontender. Extremities: No pedal edema. Left hand tremor noted. Const: Vital Signs, click to edit/add: Vital Signs - 24 hr 03/20/24 18:43 03/20/24 19:00 03/20/24 23:00 Temperature 98.3 F 98.2 F Pulse Rate [Left P ulse Oximeter] 98 80 80 Respiratory Rate 24 20 20 Blood Pressure [Le ft Arm] 122/91 H 111/86 Pulse Oximetry 93 98 Oxygen Delivery Me thod Room Air Room Air 03/20/24 23:00 03/21/24 03:00 03/21/24 08:00 Temperature 98.2 F 99.3 F Pulse Rate [Left P ulse Oximeter] 73 72 76 Respiratory Rate 16 18 28 H Blood Pressure [Le ft Arm] 113/74 98/78 Pulse Oximetry 99 97 Oxygen Delivery Nm thod Room Air Room Air 03/21/24 08:06 03/21/24 11:35 03/21/24 15:00 Temperature 98.2 F 97.6 F 98.1 F Pulse Rate [Left P ulse Oximeter] 76 96 75 Respiratory Rate 28 H 26 H 24 Blood Pressure [Le ft Arm] 103/64 101/59 L 91/55 L Pulse Oximetry 94 96 94 Oxygen Delivery Nm thod Room Air Room Air Room Air Labs Labs: Laboratory Results - last 24 hr 03/21/24 06:14 WBC 19.78 H RBC 3.45 L Hgb 10.4 L Hct 30.4 L MCV 88 MCH 30 MCHC 34 RDW Coeff of [place]y 12.7 Plt Count 217 Neut % (Auto) 87.2 H Lymph % (Auto) 5.7 L [place] % (Auto) 6.5 Eos % (Auto) 0.1 Baso % (Auto) 0.1 Neut # (Auto) 17.20 H Lymph # (Auto) 1.10 [place] # (Auto) 1.30 H Eos # (Auto) 0.00 Baso # (Auto) 0.00 Abs Immat Gran (auto) 0.10 Imm/Tot Granulo (auto) 0.4 Sodium 127 L Potassium 3.1 L Chloride 97 Carbon Dioxide 24 Anion Gap 6 L BUN 24 Creatinine 1.4 Estimated Creat Clear 45.67 Estimated GFR 50 Glucose 106 Calcium 8.7 C-Reactive Protein 22.4 H
--- NOTE | 2024-03-21 19:33 | PC.NURSE ---
Patient alert and oriented x4. Complains of intermittent bladder spasms and pain. Didn't want anything for the pain. Montoya intact. Urine still bloody but clear with no blood clots. Had a BM this shift. Transfers with SBA with a walker and gait belt. Vital signs stable.
[2024-03-21] MEDS: 0.9 % SODIUM CHLORIDE 500 ML 500 ML IV (20:12)
[2024-03-21] MEDS: ACETAMINOPHEN 325 MG TABLET 650 MG PO (20:30)
[2024-03-21] MEDS: OXYCODONE 5 MG TABLET PO (22:52)
[2024-03-22] VITALS (7 sets, daily range): BP systolic 94–127; BP diastolic 58–80; PULSE 53–74; RESP 16–18; TEMP 35.9–36.7; O2SAT 94–97
[2024-03-22] MEDS: OXYCODONE 5 MG TABLET PO ×4 (05:27→20:34)
[2024-03-22 06:29] LABS: Basophils Percent Auto 0.2 % (0.0-3.0); Eosinophils Percent Auto 1.7 % (0.0-7.0); Hematocrit 30.5 % (37.0-53.0); Hemoglobin* 10.2 gm/dL (13.5-17.5); Immature Granulocytes Pct Auto 0.3 %; Lymphocytes Percent Auto 17.1 % (20-44); Mean Corpuscular HGB Conc 33 gm/dL (32-36); Mean Corpuscular Hemoglobin 30 pg (26-34); Mean Corpuscular Volume 89 fL (80-100); Monocytes Percent Auto 7.9 % (0.0-11.0); Neutrophils Percent Auto 72.8 % (42.0-72.0); Platelet Count* 228 K/uL (140-440); RDW Coefficient of Variation % 12.8 % (11.5-15.5); Red Blood Count 3.41 m/uL (4.30-5.90); White Blood Count* 11.88 K/uL (4.50-11.00)
[2024-03-22 06:35] LABS: Slide Review Reflex No
[2024-03-22 06:40] LABS: Chloride* 96 mmol/L (96-114); Potassium* 3.5 mmol/L (3.6-5.1); Sodium* 131 mmol/L (135-149)
[2024-03-22 06:43] LABS: Anion Gap 9 mEq/L (7-15); Blood Urea Nitrogen* 27 mg/dL (7-30); Carbon Dioxide* 26 mmol/L (20-32); Creatinine* 1.4 mg/dL (0.5-1.5); Est. Creatinine Clearance* 45.67; Estimated Glomerular Filt Rate 50 ml/min
[2024-03-22 06:44] LABS: Calcium* 8.4 mg/dL (8.4-10.6); Glucose* 93 mg/dL (60-115)
--- NOTE | 2024-03-22 06:46 | PC.NURSE ---
End of shift [id number]: Alert and oriented x 4. Requested oxy x 2 for pain to bladder for spasms, medication effective and patient able to sleep comfortably. SBA with transfers and ambulation. ?
[2024-03-22] MEDS: DORZOLAMIDE/TIMOLOL 2-0.5% OPHTH 1 DROP EYE-BOTH ×2 (09:45→20:35)
[2024-03-22] MEDS: TAMSULOSIN HCL 0.4 MG CAPSULE 0.8 MG PO (09:46)
[2024-03-22] MEDS: CARBIDOPA-LEVODOPA 25-100 TABLET 1 TAB PO ×4 (09:47→20:35)
[2024-03-22] MEDS: SODIUM CHLORIDE 0.9 % (FLUSH) 10 ML SYRINGE 5 ML IVF ×2 (09:48→20:36)
[2024-03-22] MEDS: CLOPIDOGREL 75 MG TABLET PO (09:48)
[2024-03-22] MEDS: oxyBUTYnin chloride 5 MG TABLET PO ×2 (09:48→20:34)
[2024-03-22] MEDS: FINASTERIDE 5 MG TABLET PO (09:49)
[2024-03-22] MEDS: SENNOSIDES/DOCUSATE TABLET PO (09:58)
[2024-03-22] MEDS: 0.9 % SODIUM CHLORIDE 250 ml IV (14:17)
[2024-03-22] MEDS: cefTRIAXone 2 GM in 0.9 % SODIUM CHLORIDE Mini-bag 100 ML IVPB (14:17)
--- NOTE | 2024-03-22 15:55 | PM.IMPN1 ---
Progress Note: A&P Assessment and plan (1) Acute pyelonephritis: Problem details: Despite appropriate outpatient therapy for pansensitive E coli UTI with Keflex he appears to be more ill. CT scan suggests pyelonephritis as well as thickened bladder wall with hemorrhagic cystitis. Failure of outpatient therapy over the last 3 days. - 03/21 now improving with ceftriaxone. I note that his blood culture is negative so far. I suspect since this is pyelonephritis and hemorrhagic bladder with a very thick bladder wall that it is taking a little longer for the antibiotics to have an affect on his symptoms. - 03/22 noticeable improvement overnight. UC negative from admission. Continue rocephin. Assess ambulation. If he does well with that, possible d/c home tomorrow. Status: Acute (2) Hematuria: Problem details: Hemorrhagic cystitis complicated by indwelling العلي catheter Status: Resolved (3) Weakness: Problem details: Acute on chronic weakness associated with current acute infection - PT and OT to assess. Status: Acute (4) Urinary retention: Problem details: On 02/14/2020 for had 2600 mL of retained urine. On March 15 failed a trial of voiding. Indwelling العلي. Status: Chronic (5) Hyponatremia: Problem details: Likely due to acute illness with poor oral solute intake but ongoing water ingestion. - 126 to 127 to 131. Monitor. Status: Acute (6) Acute kidney injury superimposed on chronic kidney disease: Problem details: Creatinine on admission was 1.6. Baseline creatinine is 1.2. - 03/21 creatinine is 1.4. Suspect prerenal, dehydration. Give another bolus IV fluid today. - 03/22 Cr 1.4 Monitor. Status: Acute (7) Hypertension: Problem details: Hold antihypertensives while acutely ill. Reassess daily Status: Acute (8) Tremor: Problem details: Chronic tremor of the left hand suspicious for parkinsonian type course resting tremor. Sinemet beneficial. Possible cogwheel rigidity of left arm and mentions shuffling gate. - outpatient neuro referral for probable parkinsonism. Status: Acute (9) Bladder spasms: Problem details: These are likely secondary to extremely thickened bladder wall, hemorrhagic cystitis, and debris in the bladder. There are no clots seen in the urine or العلي so I do not think irrigation would be helpful. Started oxybutynin. - 03/22 improving. Continue oxybutinin. Status: Acute (10) Hypokalemia: Problem details: - Improving. Continue to replace orally and recheck in the morning. Status: Acute (11) Breast pain, left: Problem details: - Chronic, >1 year. Breast exam unremarkable. Recommend outpatient mammogram. Status: Acute Subjective Time Seen by Provider: 11:00 Date Seen: 03/22/24 Interval history: Rad's was with him today. Both he and she note how much better he is today. He is ambulating better, afebrile, better color, less sleepy, talkative. He tells me the bladder spasms are getting better, but still bothersome. Hematuria resolved. He has been able to get some sleep now, though. His also notes that his hand tremors have been much better than she has seen them in a long time. She notes that he had a shuffling gate when weak at home. He c/o 1.5 years of a spot just lateral to his left nipple that feels like a bruise. It has not changed in this time. Exam Narrative: Exam Narrative: General: No acute distress. Awake, alert, oriented x3. Talkative. He is able to give me history. When his and daughter and I were conversing, he slept and did not engage in conversation. No pallor. No jaundice. Breast: left breast without nipple inversion or dimpling. No masses or overlying skin changes. No ecchymosis. Mild tenderness to palpation just lateral to left nipple. Cardiovascular: Regular rate and rhythm. No murmurs, gallops, or rubs. Respiratory: Clear to auscultation bilaterally. No wheezes or crackles. Abdomen: Bowel sounds present. Soft, nondistended, nontender. Extremities: No pedal edema. Left hand tremor noted, better than yesterday. Mild left arm cogwheel rigidity noted. Const: Vital Signs, click to edit/add: Vital Signs - 24 hr 03/21/24 20:09 03/21/24 22:53 03/21/24 23:00 Temperature 97.7 F 97.7 F Pulse Rate [Left P ulse Oximeter] 72 66 66 Respiratory Rate 22 22 22 Blood Pressure [Le ft Arm] 104/58 L 116/80 Blood Pressure [Ri ght Arm] Pulse Oximetry 95 95 Oxygen Delivery Me thod Room Air Room Air 03/22/24 03:00 03/22/24 07:00 03/22/24 08:05 Temperature 96.6 F L 97.4 F L Pulse Rate [Left P ulse Oximeter] 53 L 59 L 59 L Respiratory Rate 18 16 16 Blood Pressure [Le ft Arm] 98/62 Blood Pressure [Ri ght Arm] 94/71 Pulse Oximetry 97 96 Oxygen Delivery Me thod Room Air Room Air 03/22/24 11:00 Temperature 97.9 F Pulse Rate [Left P ulse Oximeter] 67 Respiratory Rate 16 Blood Pressure [Le ft Arm] Blood Pressure [Ri ght Arm] 108/58 L Pulse Oximetry 95 Oxygen Delivery Me thod Room Air Labs Labs: Laboratory Results - last 24 hr 03/22/24 05:57 WBC 11.88 H RBC 3.41 L Hgb 10.2 L Hct 30.5 L MCV 89 MCH 30 MCHC 33 RDW Coeff of Rossy 12.8 Plt Count 228 Neut % (Auto) 72.8 H Lymph % (Auto) 17.1 L [place] % (Auto) 7.9 Eos % (Auto) 1.7 Baso % (Auto) 0.2 Neut # (Auto) 8.60 H Lymph # (Auto) 2.00 [place] # (Auto) 0.90 Eos # (Auto) 0.20 Baso # (Auto) 0.00 Abs Immat Gran (auto) 0.00 Imm/Tot Granulo (auto) 0.3 Sodium 131 L Potassium 3.5 L Chloride 96 Carbon Dioxide 26 Anion Gap 9 BUN 27 Creatinine 1.4 Estimated Creat Clear 45.67 Estimated GFR 50 Glucose 93 Calcium 8.4 C-Reactive Protein 17.0 H
[2024-03-22] MEDS: POTASSIUM BICARB 25 MEQ EFFERVESCENT TAB PO (16:51)
--- NOTE | 2024-03-22 18:05 | PC.NURSE ---
End of shift-- Very pleasant and cooperative, alert and oriented patient. VSS and pt is afebrile. SPO2> 90% on RA. Bladder spasm pain appears well managed with PRN Oxycodone. Montoya is patent and drained >500ml of clear, yellow urine today. LS CTA. Pt denied nausea and ate a regular diet, although appetite is poor and patient refused lunch today. He was up to chair and ambulated in hallway with PT with assist of 1 and walker and tolerated it well. Family was at bedside today and appears loving and supportive. Report to oncoming shift.
[2024-03-22] MEDS: ATORVASTATIN 10 MG TABLET PO (18:20)
[2024-03-23] MEDS: CLOTRIMAZOLE 1 % CREAM 1 APPLIC TOPICAL (00:40)
[2024-03-23 03:30] VITALS: BP 100/76; PULSE 67; RESP 18; TEMP 36.6; O2SAT 96
[2024-03-23] MEDS: OXYCODONE 5 MG TABLET PO ×2 (03:37→08:06)
--- NOTE | 2024-03-23 07:00 | PC.NURSE ---
Pt is alert and oriented x3. Afebrile. Pt reports 4/10 spasm pain in bladder, pain managed with prn medications. Pt?s العلي is patent and draining straw/pale yellow colored urine. Pt is up SBA with walker and gait belt. Pt slept intermittently throughout night. ?
[2024-03-23 07:03] LABS: Basophils Absolute Auto 0.03 K/uL (0.00-0.30); Basophils Percent Auto 0.4 % (0.0-3.0); Eosinophils Absolute Auto 0.29 K/uL (0.00-0.50); Eosinophils Percent Auto 3.5 % (0.0-7.0); Hematocrit 31.4 % (37.0-53.0); Hemoglobin* 10.5 gm/dL (13.5-17.5); Immature Granulocytes Abs Auto 0.02 K/uL (0.00-0.30); Immature Granulocytes Pct Auto 0.2 %; Lymphocytes Percent Auto 14.8 % (20-44); Mean Corpuscular HGB Conc 33 gm/dL (32-36); Mean Corpuscular Hemoglobin 30 pg (26-34); Mean Corpuscular Volume 89 fL (80-100); Monocytes Percent Auto 9.4 % (0.0-11.0); Neutrophils Absolute Auto 5.99 K/uL (1.7-7.0); Neutrophils Percent Auto 71.7 % (42.0-72.0); Platelet Count* 267 K/uL (140-440); RDW Coefficient of Variation % 12.8 % (11.5-15.5); Red Blood Count 3.54 m/uL (4.30-5.90); White Blood Count* 8.36 K/uL (4.50-11.00)
[2024-03-23 07:12] LABS: Chloride* 98 mmol/L (96-114); Sodium* 131 mmol/L (135-149)
[2024-03-23 07:13] LABS: Potassium* 3.5 mmol/L (3.6-5.1)
[2024-03-23 07:15] LABS: Creatinine* 1.3 mg/dL (0.5-1.5); Est. Creatinine Clearance* 49.18; Estimated Glomerular Filt Rate 54 ml/min
[2024-03-23 07:16] LABS: Anion Gap 7 mEq/L (7-15); Blood Urea Nitrogen* 20 mg/dL (7-30); Calcium* 8.7 mg/dL (8.4-10.6); Carbon Dioxide* 26 mmol/L (20-32); Glucose* 97 mg/dL (60-115)
[2024-03-23 07:19] LABS: C Reactive Protein* 8.3 mg/dL (0.5-1.0)
[2024-03-23 07:34] LABS: Slide Review Reflex No
[2024-03-23] MEDS: TAMSULOSIN HCL 0.4 MG CAPSULE 0.8 MG PO (08:05)
[2024-03-23] MEDS: FINASTERIDE 5 MG TABLET PO (08:05)
[2024-03-23] MEDS: CLOPIDOGREL 75 MG TABLET PO (08:06)
[2024-03-23] MEDS: CARBIDOPA-LEVODOPA 25-100 TABLET 1 TAB PO ×2 (08:06→13:37)
[2024-03-23] MEDS: oxyBUTYnin chloride 5 MG TABLET PO ×2 (08:06→13:36)
[2024-03-23] MEDS: SENNOSIDES/DOCUSATE TABLET PO (08:06)
[2024-03-23] MEDS: SODIUM CHLORIDE 0.9 % (FLUSH) 10 ML SYRINGE 5 ML IVF (08:07)
[2024-03-23] MEDS: DORZOLAMIDE/TIMOLOL 2-0.5% OPHTH 1 DROP EYE-BOTH (08:07)
[2024-03-23 10:53] VITALS: BP 112/54; PULSE 66; RESP 20; TEMP 36.6; O2SAT 95
[2024-03-23] MEDS: POTASSIUM BICARB 25 MEQ EFFERVESCENT TAB PO ×2 (11:03→13:37)
[2024-03-23 11:56] VITALS: BP 129/78; PULSE 86; RESP 20; O2SAT 97
--- NOTE | 2024-03-23 13:10 | PM.DS1 ---
DS: Providers Provider Time Seen by Provider: 12:00 Date Seen: 03/23/24 Date of admission: 03/20/24 18:34 Primary care physician: Kemar Tanner MD Admitting Clinician: Moo Villalobos MD Consults: 03/20/24 18:03 Consult to Occupational Therapy [CONS] Routine Comment: Reason(s) for OT Consult:: Evaluate and Treat Any Restrictions?:: No Restrictions Consult to Physical Therapy [CONS] Routine Comment: Reason(s) for PT Consult:: Evaluate and Treat Any Restrictions?:: No Restrictions Attending Physician on discharge: Mary Baron MD Date of Discharge: 03/23/24 DS: Diagnosis Discharge Diagnosis (1) Acute pyelonephritis: Status: Acute Problem details: Despite appropriate outpatient therapy for pansensitive E coli UTI with Keflex he appears to be more ill. CT scan suggests pyelonephritis as well as thickened bladder wall with hemorrhagic cystitis. Failure of outpatient therapy over the last 3 days. - 03/21 now improving with ceftriaxone. I note that his blood culture is negative so far. I suspect since this is pyelonephritis and hemorrhagic bladder with a very thick bladder wall that it is taking a little longer for the antibiotics to have an affect on his symptoms. - 03/22 noticeable improvement overnight. UC negative from admission. Continue rocephin. Assess ambulation. If he does well with that, possible d/c home tomorrow. (2) Hematuria: Status: Resolved Problem details: Hemorrhagic cystitis complicated by indwelling العلي catheter (3) Weakness: Status: Acute Problem details: Acute on chronic weakness associated with current acute infection - PT and OT assessed - Weakness resolved, back to baseline. (4) Urinary retention: Status: Chronic Problem details: On 02/14/2020 for had 2600 mL of retained urine. On March 15 failed a trial of voiding. Indwelling العلي. (5) Hyponatremia: Status: Acute Problem details: Likely due to acute illness with poor oral solute intake but ongoing water ingestion. - 126 to 127 to 131. Asymptomatic. (6) Acute kidney injury superimposed on chronic kidney disease: Status: Acute Problem details: Creatinine on admission was 1.6. Baseline creatinine is 1.2. - 03/21 creatinine is 1.4. Suspect prerenal, dehydration. Give another bolus IV fluid today. - 03/22 Cr 1.4 Monitor. - 7/9 Cr 1.3 - f/u with PCP (7) Hypertension: Status: Acute (8) Tremor: Status: Acute Problem details: Chronic tremor of the left hand suspicious for parkinsonian type course resting tremor. Sinemet beneficial. Possible cogwheel rigidity of left arm and mentions shuffling gate. - outpatient neuro referral for probable parkinsonism. (9) Breast pain, left: Status: Acute Problem details: - Chronic, >1 year. Breast exam unremarkable. Recommend outpatient mammogram. (10) Hypokalemia: Status: Acute Problem details: - Improving. Gave po replacement today. Recheck as outpatient (11) Bladder spasms: Status: Acute Problem details: These are likely secondary to extremely thickened bladder wall, hemorrhagic cystitis, and debris in the bladder. There are no clots seen in the urine or العلي so I do not think irrigation would be helpful. Started oxybutynin. - 03/22 improving. Continue oxybutinin. DS: Summary Hospital Course Hospital Course: Per H&P: Rad Aburto is a 83 year old male admitted with a 1 month history of urinary retention treated with العلي catheter, 3 day history of hematuria and pansensitive E coli UTI treated with Keflex and now a 3 day history of progressive weakness and loss of appetite. On 02/16/2024 he was having difficulties with voiding. He presented to the clinic where he was found to have 2600 mL of retained urine in his bladder. العلي catheter was placed. Further next month this worked well for him. He was feeling well. He was able to travel and manage his catheter without difficulties. On March 15 he was seen by his urologist for trial of voiding and this failed so catheter was placed again. He remains on finasteride and tamsulosin for his urinary retention On March 17 he presented to the emergency department with grossly bloody urine. He received continuous bladder irrigation in the emergency department which cleared his hematuria. At that time he was suspected of having a urinary tract infection. He was started on Keflex her for this. Over the next 3 days he has been progressively getting worse. Is bloody urine returned he has been getting weaker, he has not been eating much, he vomited once 2 days ago, he has had some chills but no fever, and he has had bladder spasms. He normally his independent with ambulation and uses a cane. In the last few days he has gotten weak to the point where he can hardly walk at all. He ambulates slowly and he has a tremor primarily in his left hand. He has had a previous stroke causing a left visual field cut but no other notable motor disability. Patient was admitted for IV antibiotic treatment of pyelonephritis. Since she cultures 3 days prior had grown out pansensitive E coli, he was started on IV ceftriaxone. By hospital day 3, he was much improved. Hematuria had resolved. Weakness and hyponatremia were starting to improve as well. Creatinine was also improving. By today his creatinine is very close to baseline, sodium is now 131, he is ambulating and is baseline and discharging home in stable condition to the care of his family. He was also started on Sinemet for tremor, which did improve that. I spoke with his family about the possibility of Parkinson's disease and have asked that he see a neurologist in the next month or so as these acute illnesses improved. He is on oxybutynin and oxycodone as needed for bladder spasms. I have asked him to wean off those medications in the next week. Please see diagnoses above for further details. Time Spent with Patient Time attestation: Total time spent providing and/or coordinating discharge services: Exam Narrative: Exam Narrative: General: No acute distress. Awake, alert, oriented x3. Talkative. Cardiovascular: Regular rate and rhythm. No murmurs, gallops, or rubs. Respiratory: Clear to auscultation bilaterally. No wheezes or crackles. Extremities: No pedal edema. Left hand tremor noted. Const: Vital Signs, click to edit/add: Vital Signs - 24 hr 03/22/24 15:00 03/22/24 15:00 03/22/24 19:00 Temperature 97.9 F 98.0 F Pulse Rate [Left P ulse Oximeter] 62 67 Pulse Rate [Pulse Oximeter] 74 Respiratory Rate 18 16 16 Blood Pressure [Le ft Arm] 98/62 Blood Pressure [Ri ght Arm] 108/58 L Blood Pressure [Ri ght Upper Arm] 113/80 Pulse Oximetry 95 96 Oxygen Delivery Me thod Room Air Room Air 03/22/24 23:57 03/23/24 03:30 03/23/24 10:53 Temperature 97.8 F 97.9 F 97.9 F Pulse Rate [Left P ulse Oximeter] 65 67 66 Pulse Rate [Pulse Oximeter] Respiratory Rate 18 18 20 Blood Pressure [Le ft Arm] 100/76 Blood Pressure [Ri ght Arm] 127/63 112/54 L Blood Pressure [Ri ght Upper Arm] Pulse Oximetry 94 96 95 Oxygen Delivery Me thod Room Air Room Air Room Air 03/23/24 11:56 Temperature Pulse Rate [Left P ulse Oximeter] 86 Pulse Rate [Pulse Oximeter] Respiratory Rate 20 Blood Pressure [Le ft Arm] Blood Pressure [Ri ght Arm] 129/78 Blood Pressure [Ri ght Upper Arm] Pulse Oximetry 97 Oxygen Delivery Me thod Room Air DS: Data Data Completed and Pending Completed studies during hospitalization: 03/20/2024 EKG: Atrial fibrillation with rapid ventricular response. 106 beats per minute. Nonspecific ST abnormality. Ordering Physician: Nurys Sarmiento M.D. Date of Service: 03/20/24 Procedure(s): CT chest abdomen pelv wo con Accession Number(s): [id number] cc: Nurys Sarmiento M.D.; Kemar Tanner M.D.~ For Patients: As a result of the Cures Act, medical imaging exams and procedure reports are released immediately into your electronic medical record. You may view this report before your referring provider. If you have questions, please contact your health care provider. INDICATION: Hematuria, weakness and elevated white blood cell count. History of UTI. New العلي catheter inserted about 1 week ago. TECHNIQUE: Noncontrast CT chest, abdomen and pelvis COMPARISON: Chest CT 12/01/2016. FINDINGS: The absence of intravenous contrast limits evaluation of solid organs and vasculature. Chest: Cardiovascular structures: Heart size is normal. The main pulmonary artery is mildly enlarged measuring 3.5 cm in diameter suggestive of pulmonary arterial hypertension. Normal caliber thoracic aorta. Severe coronary artery calcification. Mediastinum and celine: No mediastinal lymphadenopathy or evidence of hilar mass. Chest wall and axilla: Mild gynecomastia on the left. No axillary lymphadenopathy. Lungs: No suspicious pulmonary nodule. No consolidation, pleural effusion or pneumothorax. The central airways are clear. Abdomen and Pelvis: Liver: Unremarkable. Gallbladder and bile ducts: Unremarkable. Spleen: Unremarkable. Pancreas: Unremarkable. Adrenal glands: Unremarkable. Kidneys: There is mild haziness in the left renal hilum. The ureters appear normal. No kidney or ureteral stones and no hydronephrosis. GI tract: Colonic diverticulosis. No evidence of acute diverticulitis. No bowel obstruction or inflammation. Appendix is not definitely visualized. No inflammatory changes in the right lower quadrant to suggest acute appendicitis. Vascular structures: Atherosclerotic calcification of the abdominal aorta and common iliac arteries which are normal in caliber. Lymph nodes: Unremarkable. Miscellaneous: No ascites. No free air. There is a partially visualized 5.5 x 3.7 cm lipoma in the right sartorius muscle. Small fat containing umbilical hernia. Pelvic Organs: Diffuse urinary bladder wall thickening. A العلي catheter is in place. A foci of gas density in the urinary bladder is likely related to recent instrumentation. There is a small amount of dense material in the urinary bladder due to either blood or injected contrast material. The prostate is enlarged. Bones: Flowing anterior osteophytes in the thoracic spine suggestive of DISH. The bones are diffusely demineralized. Degenerative changes in the lumbar spine and at the hips. No acute osseous abnormality. No suspicious bone lesion. IMPRESSION: 1. There is diffuse thickening of the urinary bladder wall which is nonspecific in the setting of chronic bladder outlet obstruction. The العلي catheter is appropriately positioned. 2. There is a small amount of dense material within the urinary bladder which could be blood products or contrast material. 3. There is mild haziness of the fat in the left renal hilum raising the question of pyelonephritis. 4. No acute abnormality in the chest. 5. Mild enlargement of the main pulmonary artery is suggestive of pulmonary arterial hypertension. Please note that all CT scans at this facility use dose modulation, iterative reconstruction, and/or weight-based dosing when appropriate to reduce radiation dose to as low as reasonably achievable. Dictated by Aminta Benjamin MD @ 03/20/2024 4:45:48 PM (Electronically Signed) Labs on day of discharge: Labs from last 24 hours 03/23/24 06:12 WBC 8.36 RBC 3.54 L Hgb 10.5 L Hct 31.4 L MCV 89 MCH 30 MCHC 33 RDW Coeff of [place]y 12.8 Plt Count 267 Neut % (Auto) 71.7 Lymph % (Auto) 14.8 L [place] % (Auto) 9.4 Eos % (Auto) 3.5 Baso % (Auto) 0.4 Neut # (Auto) 5.99 Lymph # (Auto) 1.20 [place] # (Auto) 0.80 Eos # (Auto) 0.29 Baso # (Auto) 0.03 Abs Immat Gran (auto) 0.02 Imm/Tot Granulo (auto) 0.2 Sodium 131 L Potassium 3.5 L Chloride 98 Carbon Dioxide 26 Anion Gap 7 BUN 20 Creatinine 1.3 Estimated Creat Clear 49.18 Estimated GFR 54 Glucose 97 Calcium 8.7 C-Reactive Protein 8.3 H Preliminary micro results at discharge 03/20/24 17:27 Blood Culture - Preliminary Blood NO GROWTH AFTER 48 HOURS Discharge Plan Discharge Disposition: Home, Self-Care Date of Admission: 03/20/24 18:34 Attending Provider on Discharge: Mary Baron Primary Care Provider: Kemar Tanner Condition: Stable Anticipated Discharge Date/Time: 03/23/24 14:00 Discharge Medications: New sennosides-docusate sodium [Stool Softener-Laxative] 8.6-50 mg Tablet 1 tab PO BID PRN (Reason: CONSTIPATION) Qty: 30 0RF carbidopa-levodopa 25-100 mg Tablet 1 tab PO QID Qty: 120 0RF oxybutynin chloride 5 mg Tablet 5 mg PO TID PRN (Reason: bladder spasms) Qty: 30 0RF oxycodone 5 mg Tablet 5 mg PO Q4H PRN (Reason: pain) Qty: 20 0RF cefdinir 300 mg capsule 300 mg PO BID 7 Days Qty: 14 0RF Continued atorvastatin 10 mg tablet 10 mg PO QHS clopidogrel 75 mg tablet 75 mg PO DAILY cholecalciferol (vitamin D3) 50 mcg (2,000 unit) capsule 50 mcg PO DAILY super beta prostate finasteride [Proscar] 5 mg tablet 5 mg PO DAILY tamsulosin [Flomax] 0.4 mg capsule 0.8 mg PO DAILY dorzolamide 2 % drops 1 drp ophthalmic (eye) BID dorzolamide-timolol 22.3-6.8 mg/mL drops 1 drp ophthalmic (eye) BID Held amlodipine 5 mg tablet 5 mg PO DAILY Hold Instructions: Resume on 03/30/24. losartan 100 mg tablet 100 mg PO DAILY Hold Instructions: Resume on 03/30/24. Discontinued chlorthalidone 25 mg tablet 25 mg PO DAILY cephalexin 500 mg capsule 500 mg PO 3XD Discharge Orders: Discharge Order (Routine); Ordered 03/23/24 Ordered By: Mary Baron Patient Education: Oxybutynin (By mouth), Carbidopa/Levodopa (By mouth), Oxycodone, Rapid Release (By mouth), Cefdinir (By mouth) (Omnicef), Senna (By mouth) (Sen, Senna-lax), Kidney Infection (DC) Additional Instructions: Mammogram through [facility] for left breast pain, family h/o breast CA Neuro ([place]) 1 month Activity Level: Activity as Tolerated, Use Cane and Use Walker Discharge Diet: Regular Follow Up Appointments: Kemar Tanner MD [Primary Care Provider] - (5 days with [facility]) Janay Johnson MD [Staff Physician] - 03/30/24 1:00 pm ([facility] for follow-up. ) Forms: [facility] Info Instructions
[2024-03-23] MEDS: cefTRIAXone 2 GM in 0.9 % SODIUM CHLORIDE Mini-bag 100 ML IVPB (13:37)
--- NOTE | 2024-03-23 20:01 | PC.NURSE ---
Discharge - Pt alert, oriented, cooperative. Up with standby assistance and walker/gait belt. Montoya catheter observed to be patent and draining. Tolerating RA, regular diet/fluids. Pt reported pain with bladder spasm, medication given per MAR with pt reporting improvement. IV removed with catheter intact, discharge education given to pt and spouse with verbalized understanding from both. Pt discharged to home via wheelchair with spouse at approximately 1550.
== END 2024-03-23 15:50 | disposition home or self-care (01) | DRG 690 ==
LOC: ED 17:30 → MEDSURG 18:33
PROVIDERS: Admitting Provider Family Medicine; Emergency Provider Emergency Medicine; PCP Family Medicine; Visit Provider Family Medicine
DX: N10 Acute pyelonephritis (principal); T83.511A Infection and inflammatory reaction due to indwelling urethral catheter, initial encounter; N30.01 Acute cystitis with hematuria; E87.1 Hypo-osmolality and hyponatremia; N17.9 Acute kidney failure, unspecified; B96.20 Unspecified Escherichia coli [E. coli] as the cause of diseases classified elsewhere; R33.9 Retention of urine, unspecified; I12.9 Hypertensive chronic kidney disease with stage 1 through stage 4 chronic kidney disease, or unspecified chronic kidney disease; N18.30 Chronic kidney disease, stage 3 unspecified; R25.1 Tremor, unspecified; E87.6 Hypokalemia; N64.4 Mastodynia; N32.89 Other specified disorders of bladder
CPT/HCPCS: 36415; 51702; 71250; 74176; 80048; 80076; 81001; 83605; 84439; 84443; 84484; 85025; 86140; 87040; 87086; 87186; 93005; 94761; 97116; 97162; 97165; 97530; 99283; 99284; 99285; A9270; J0696; J2405; J7030; J7050

== ENCOUNTER 2024-06-26 08:47 | Inpatient (IN) | payer MEDICARE, BC, SELFPAY ==
[2024-06-26] VITALS (17 sets, daily range): BP systolic 132–181; BP diastolic 68–132; PULSE 60–102; RESP 16–20; TEMP 36.5–38.6; O2SAT 94–97; BMI 29.5; BMI 28.5
[2024-06-26 09:56] LABS: Lactate* 0.8 mmol/L (0.5-1.9)
--- NOTE | 2024-06-26 09:57 | ED.GENADULT ---
HPI - General Adult General Chief complaint: Urogenital Problems, Male Stated complaint: Poss uti Time Seen by Provider: 06/26/24 09:01 History of Present Illness HPI narrative: Patient is an 84-year-old gentleman who presents with weakness. He has a chronic Montoya catheter and this morning and noticed very cloudy urine. He has a history of BPH and has a catheter in regularly with regular changes. Patient has noticed increased weakness and difficulty functioning at home due to increased tremor due to his parkinsonism as well as overall increased weakness. He really has not had any fever chills. He has had no nausea no vomiting. He lives with his of many years and she is providing excellent care for him. He has had no cough no sputum production no rashes no swelling. No urinary discomfort with the catheter. Related Data Home Medications ?Medication ?Instructions ?Recorded ?Confirmed atorvastatin 10 mg tablet 10 mg PO QHS 03/17/24 06/26/24 cholecalciferol (vitamin D3) 50 50 mcg PO DAILY 03/17/24 06/26/24 mcg (2,000 unit) capsule clopidogrel 75 mg tablet 75 mg PO DAILY 03/17/24 06/26/24 dorzolamide 2 % eye drops 1 drp ophthalmic (eye) BID 03/17/24 06/26/24 finasteride 5 mg tablet (Proscar) 5 mg PO DAILY 03/17/24 06/26/24 losartan 100 mg tablet 100 mg PO DAILY 03/17/24 03/21/24 super beta prostate 03/17/24 tamsulosin 0.4 mg capsule (Flomax) 0.8 mg PO DAILY 03/17/24 06/26/24 dorzolamide 22.3 mg-timolol 6.8 1 drp ophthalmic (eye) BID 03/21/24 03/21/24 mg/mL eye drops carbidopa 25 mg-levodopa 100 mg 1 tab PO TID 06/26/24 06/26/24 tablet Previous Rx's ?Medication ?Instructions ?Recorded oxybutynin chloride 5 mg tablet 5 mg PO TID PRN bladder spasms #30 03/23/24 tabs oxycodone 5 mg tablet 5 mg PO Q4H PRN pain #20 tabs 03/23/24 sennosides 8.6 mg-docusate sodium 1 tab PO BID PRN CONSTIPATION #30 03/23/24 50 mg tablet (Stool tabs Softener-Laxative) Allergies Allergy/AdvReac Type Severity Reaction Status Date / Time amlodipine AdvReac Mild Verified 06/26/24 08:57 labetalol AdvReac Mild Dizziness Verified 06/26/24 08:57 omeprazole AdvReac Mild Rash Verified 06/26/24 08:57 Review of Systems Status of ROS: Reports: 10 or more systems reviewed and unremarkable except as noted in History and below PFSH PFS Medical History Acute kidney injury superimposed on chronic kidney disease ?N17.9 - Acute kidney failure, unspecified (ICD-10) ?N18.9 - Chronic kidney disease, unspecified (ICD-10) Sensorineural hearing loss ?H90.5 - Unspecified sensorineural hearing loss (ICD-10) Elevated PSA ?R97.20 - Elevated prostate specific antigen [PSA] (ICD-10) Hyperlipidemia ?E78.5 - Hyperlipidemia, unspecified (ICD-10) Hypertension ?I10 - Essential (primary) hypertension (ICD-10) Occipital stroke ?I63.9 - Cerebral infarction, unspecified (ICD-10) Urinary retention ?R33.9 - Retention of urine, unspecified (ICD-10) Tremor ?R25.1 - Tremor, unspecified (ICD-10) Surgical History H/O cataract extraction ?Z98.49 - Cataract extraction status, unspecified eye (ICD-10) History of arthroplasty of left knee ?Z96.652 - Presence of left artificial knee joint (ICD-10) S/P arthroscopy of left shoulder ?Z98.890 - Other specified postprocedural states (ICD-10) Family History Other Parkinsons disease Social History Narrative: 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 Code status is full. He does not drink. Remote history of smoking. What is your current living situation?: I presently have a place to live Problems where you live: no known problems Problems where you live details: N/A In the past 12 months, utilities in danger of being shut off: no In past 12 months, lack of transportation kept you from medical appts, meetings, work, or getting things needed for daily living: no In the past 12 mos, have been you worried that your food would run out before you had money to buy more?: never true In the past 12 mos, the food you bought just didn't last and you didn't have money to buy more?: never true Highest level of school completed/degree received: high school graduate Smoking Status: Former smoker Do you use any of these nicotine containing products: None Second hand tobacco smoke exposure: No How often do you have a drink containing alcohol: never AUDIT-C Alcohol total score: 0 Non-prescribed substance use: denies use Caffeine: Yes How often does anyone, including family, friends and others, physically hurt you: never How often does anyone, including family, friends and others, insult or talk down to you: never How often does anyone, including family, friends and others, threaten you with harm: never How often does anyone, including family, friends and others, scream or curse at you: never service: No Exam Narrative: Exam Narrative: EXAM GENERAL: Patient appears weak and frail with left-sided tremor. EYES: No scleral icterus. LYMPH: No supraclavicular or cervical lymphadenopathy. SKIN: Visible skin seen during exam normal or with benign process only. EXT: No dependent lower extremity pedal edema. HEART: Regular rate and rhythm with no murmurs, rubs, or gallops. LUNGS: Clear to auscultation bilaterally with no crackles or wheezes. ABD: Soft, non tender, non distended. PSYCH: Good eye contact, speech is not pressured. Genitourinary Montoya catheter in place. Neurologic as noted above no other focal neurologic defects. Const: Vital Signs, click to edit/add: Vital Signs - 24 hr 06/26/24 08:48 06/26/24 10:02 06/26/24 10:15 Temperature 99.0 F Pulse Rate 90 88 Pulse Rate [Pulse Oximeter] 102 H Respiratory Rate 16 Blood Pressure Blood Pressure [Ri ght Upper Arm] 171/132 H Pulse Oximetry 96 96 96 Oxygen Delivery Me thod Room Air 06/26/24 10:20 06/26/24 10:21 06/26/24 10:30 Temperature Pulse Rate 87 86 79 Pulse Rate [Pulse Oximeter] Respiratory Rate Blood Pressure 181/91 H Blood Pressure [Ri ght Upper Arm] Pulse Oximetry 96 95 95 Oxygen Delivery Me thod 06/26/24 10:45 06/26/24 11:00 06/26/24 11:02 Temperature Pulse Rate 76 74 77 Pulse Rate [Pulse Oximeter] Respiratory Rate Blood Pressure 181/85 H Blood Pressure [Ri ght Upper Arm] Pulse Oximetry 96 97 97 Oxygen Delivery Me thod Course Course ED Course: I am concerned about sepsis and I did begin fluid bolus as well as broad-spectrum antibiotics with Zosyn. Urine culture and UA CBC basic metabolic panel procalcitonin lactate pending. I did give 1 L fluid bolus. Vital Signs Vital signs: Initial Vital Signs Temperature 99.0 F 06/26/24 08:48 Temperature Source Temporal Artery Scan 06/26/24 08:48 Pulse Rate 102 H 06/26/24 08:48 Respiratory Rate 16 06/26/24 08:48 Blood Pressure 171/132 H 06/26/24 08:48 Blood Pressure Mean 145 H 06/26/24 08:48 Blood Pressure Position Sitting 06/26/24 08:48 Pulse Oximetry 96 06/26/24 08:48 Oxygen Delivery Method Room Air 06/26/24 08:48 Vital Signs Temperature 99.0 F 06/26/24 08:48 Pulse Rate 102 H 06/26/24 08:48 Respiratory Rate 16 06/26/24 08:48 Blood Pressure 171/132 H 06/26/24 08:48 Pulse Oximetry 96 06/26/24 08:48 Oxygen Delivery Method Room Air 06/26/24 08:48 Temperature 99.0 F 06/26/24 08:48 Pulse Rate 77 06/26/24 11:02 Respiratory Rate 16 06/26/24 08:48 Blood Pressure 181/85 H 06/26/24 11:02 Pulse Oximetry 97 06/26/24 11:02 Oxygen Delivery Method Room Air 06/26/24 08:48 Medications Administered Medications: Discontinued Medications Generic Name Dose Route Start Last Admin Trade Name Freq PRN Reason Stop Dose Admin Sodium Chloride 1,000 mls @ 1,000 mls/hr 06/26/24 09:10 06/26/24 10:08 0.9 % Sodium Chloride 1000 Ml IV 06/26/24 10:09 1,000 mls/hr .Q1H DERICK Administration Piperacillin Sod/Tazobactam 100 mls @ 200 mls/hr 06/26/24 09:44 06/26/24 10:59 Sod 3.375 gm/ Sodium Chloride IVPB 06/26/24 09:45 Infused ONCE ONE Infusion Medical Decision Making MDM Narrative Medical decision making narrative: Patient is a 4-year-old gentleman who comes in today with confusion and general malaise as well as weakness. He was in his usual state of health until the last 24 hours at which time the above-mentioned symptoms started as well as worsening of chronic parkinsonism. He has had no overt fevers. His lactate is normal. I did give him a L of normal saline we did culture his blood and send off urine cultures. His urine shows overt infection. At this time I started him on IV Zosyn and will admit for further evaluation and treatment. I did consider sepsis and we did begin fluid bolus prior to admission. Lab Data Labs: Lab Results 06/26/24 06/26/24 Range/Units 09:45 10:00 WBC 9.52 (4.50-11.00) K/uL RBC 4.06 L (4.30-5.90) m/uL Hgb 11.8 L (13.5-17.5) gm/dL Hct 36.3 L (37.0-53.0) % MCV 89 (80-100) fL MCH 29 (26-34) pg MCHC 33 (32-36) gm/dL RDW Coeff of Rossy 13.2 (11.5-15.5) % Plt Count 156 (140-440) K/uL Neut % (Auto) 84.3 H (42.0-72.0) % Lymph % (Auto) 5.8 L (20-44) % Bartholomew % (Auto) 9.6 (0.0-11.0) % Eos % (Auto) 0.0 (0.0-7.0) % Baso % (Auto) 0.1 (0.0-3.0) % Neut # (Auto) 8.00 H (1.7-7.0) K/uL Lymph # (Auto) 0.60 L (0.90-2.90) K/uL Bartholomew # (Auto) 0.90 (0.00-0.90) K/UL Eos # (Auto) 0.00 (0.00-0.50) K/uL Baso # (Auto) 0.01 (0.00-0.30) K/uL Abs Immat Gran (auto) 0.02 (0.00-0.30) K/uL Imm/Tot Granulo (auto) 0.2 % Sodium 134 L (135-149) mmol/L Potassium 3.8 (3.6-5.1) mmol/L Chloride 104 (96-114) mmol/L Carbon Dioxide 21 (20-32) mmol/L Anion Gap 9 (7-15) mEq/L BUN 23 (7-30) mg/dL Creatinine 1.3 (0.5-1.5) mg/dL Estimated Creat Clear 48.30 Estimated GFR 54 ml/min Glucose 143 H (60-115) mg/dL Lactate 0.8 (0.5-1.9) mmol/L Calcium 8.7 (8.4-10.6) mg/dL Total Bilirubin 1.8 H (0.1-1.5) mg/dL AST 23 (12-35) U/L ALT 6 (4-50) U/L Alkaline Phosphatase 58 (40-150) U/L Total Protein 7.1 (6.0-8.3) g/dL Albumin 3.9 (3.3-5.0) g/dL Procalcitonin 0.35 (<0.50) ng/mL Urine Color Yellow (Yellow) Urine Appearance Cloudy A (Clear) Urine pH 5.5 (5.0-8.5) Ur Specific [place] 1.020 (1.000-1.030) Urine Protein 2+ A (Negative) Urine Glucose (UA) Negative (Negative) Urine Ketones 1+ A (Negative) Urine Blood 3+ A (Negative) Urine Nitrite Positive A (Negative) Urine Bilirubin Negative (Negative) Urine Urobilinogen 0.2 (0.2-1.0) Ur Leukocyte Esterase 3+ A (Negative) Urine RBC 25-50 A (0-2) Urine WBC >100 A (0-5) Ur Squamous Epith Cells Few (None-Few) Urine Bacteria Moderate A (None) Discharge Plan Discharge Clinical Impression: Urinary tract infection Patient Disposition: Admitted As Inpatient Condition: Stable Activity Level: No Restrictions and Other Discharge Diet: Regular and Other Prescriptions: No Action atorvastatin 10 mg tablet 10 mg PO QHS clopidogrel 75 mg tablet 75 mg PO DAILY losartan 100 mg tablet 100 mg PO DAILY Hold Instructions: Resume on 03/30/24. cholecalciferol (vitamin D3) 50 mcg (2,000 unit) capsule 50 mcg PO DAILY super beta prostate finasteride [Proscar] 5 mg tablet 5 mg PO DAILY tamsulosin [Flomax] 0.4 mg capsule 0.8 mg PO DAILY dorzolamide 2 % drops 1 drp ophthalmic (eye) BID dorzolamide-timolol 22.3-6.8 mg/mL drops 1 drp ophthalmic (eye) BID sennosides-docusate sodium [Stool Softener-Laxative] 8.6-50 mg Tablet 1 tab PO BID PRN (Reason: CONSTIPATION) Qty: 30 0RF oxybutynin chloride 5 mg Tablet 5 mg PO TID PRN (Reason: bladder spasms) Qty: 30 0RF oxycodone 5 mg Tablet 5 mg PO Q4H PRN (Reason: pain) Qty: 20 0RF carbidopa-levodopa 25-100 mg Tablet 1 tab PO TID Follow Up/Referrals: Kemar Tanner MD [Primary Care Provider] -
[2024-06-26 10:01] LABS: Basophils Absolute Auto 0.01 K/uL (0.00-0.30); Basophils Percent Auto 0.1 % (0.0-3.0); Hematocrit 36.3 % (37.0-53.0); Hemoglobin* 11.8 gm/dL (13.5-17.5); Immature Granulocytes Abs Auto 0.02 K/uL (0.00-0.30); Immature Granulocytes Pct Auto 0.2 %; Lymphocytes Percent Auto 5.8 % (20-44); Mean Corpuscular HGB Conc 33 gm/dL (32-36); Mean Corpuscular Hemoglobin 29 pg (26-34); Mean Corpuscular Volume 89 fL (80-100); Monocytes Percent Auto 9.6 % (0.0-11.0); Neutrophils Percent Auto 84.3 % (42.0-72.0); Platelet Count* 156 K/uL (140-440); RDW Coefficient of Variation % 13.2 % (11.5-15.5); Red Blood Count 4.06 m/uL (4.30-5.90); White Blood Count* 9.52 K/uL (4.50-11.00)
[2024-06-26 10:03] LABS: Slide Review Reflex No
[2024-06-26 10:04] LABS: Appearance Urine Cloudy (Clear); Bilirubin Urine Negative (Negative); Blood Urine 3+ (Negative); Color Urine Yellow (Yellow); Glucose Urine Negative (Negative); Ketones Urine 1+ (Negative); Leukocyte Esterase Urine 3+ (Negative); Nitrite Urine Positive (Negative); Protein Urine 2+ (Negative); Urobilinogen Urine 0.2 (0.2-1.0); pH Urine 5.5 (5.0-8.5)
[2024-06-26] MEDS: 0.9 % SODIUM CHLORIDE 1000 ml 1,000 ML IV (10:08)
[2024-06-26 10:14] LABS: Albumin* 3.9 g/dL (3.3-5.0); Chloride* 104 mmol/L (96-114); Potassium* 3.8 mmol/L (3.6-5.1); Sodium* 134 mmol/L (135-149)
[2024-06-26 10:14] LABS: Bacteria Urine Moderate; RBC Urine 25-50 (0-2); Squamous Epithelial Cell Urine Few (None-Few); WBC Urine >100 (0-5)
[2024-06-26] MEDS: PIPERACILLIN/TAZOBACTAM 3.375 GM in 0.9 % SODIUM CHLORIDE Mini-bag 100 ML IVPB (10:14)
[2024-06-26 10:16] LABS: Anion Gap 9 mEq/L (7-15); Bilirubin Total* 1.8 mg/dL (0.1-1.5); Carbon Dioxide* 21 mmol/L (20-32); Creatinine* 1.3 mg/dL (0.5-1.5); Estimated Glomerular Filt Rate 54 ml/min
[2024-06-26 10:17] LABS: Alanine Aminotransferase* 6 U/L (4-50); Alkaline Phosphatase* 58 U/L (40-150); Aspartate Amino Transferase* 23 U/L (12-35); Blood Urea Nitrogen* 23 mg/dL (7-30); Calcium* 8.7 mg/dL (8.4-10.6); Glucose* 143 mg/dL (60-115); Total Protein* 7.1 g/dL (6.0-8.3)
[2024-06-26 10:34] LABS: Procalcitonin* 0.35 ng/mL (<0.50)
[2024-06-26] MEDS: 0.9 % SODIUM CHLORIDE 500 ML 500 ML IV (13:30)
[2024-06-26] MEDS: ONDANSETRON 2 MG/ML inj 4 MG IVP (13:30)
[2024-06-26] MEDS: SODIUM CHLORIDE 0.9 % (FLUSH) 10 ML SYRINGE 5 ML IVF ×3 (13:30→23:00)
[2024-06-26] MEDS: CARBIDOPA-LEVODOPA 25-100 TABLET 1 TAB PO ×2 (13:58→18:01)
--- NOTE | 2024-06-26 14:55 | PC.NURSE ---
End of Shift: Admitted to Med Surg at 1145. Pleasant and cooperative. Patient reports no pain. Reported nausea, gave PRN medication, see NOV.
[2024-06-26] MEDS: cefTRIAXone 1 GM in 0.9 % SODIUM CHLORIDE Mini-bag 100 ML IVPB ×2 (15:54→22:59)
[2024-06-26] MEDS: CALCIUM CARBONATE 500 MG CHEW PO (16:40)
--- NOTE | 2024-06-26 16:47 | P.IMHP_ITS ---
Hospitalist- H&P: HPI History of Present Illness Date Seen: 06/26/24 Chief complaint: Poss uti Narrative: Rad Aburto is a 84 year old male with Parkinson's, stroke, indwelling urinary catheter presents with weakness for 1-2 days. The main symptom he has had is profound weakness. His notes that he has been unable to walk today because he is too weak. He is not aware of fever, cold, cough, shortness of breath, nausea, vomiting, diarrhea. He has a chronic indwelling Montoya catheter has had previous episodes of illness like this with urinary infections. Most recently he had pansensitive E coli infection with a similar presentation 3 months ago. He reports a very poor appetite with some nausea but no vomiting. No abdominal pain or chest pain. Review of Systems Narrative: He has ongoing loss of vision. He had an occipital stroke causing significant loss of vision, primarily visual field defects. Since then he has been losing some vision even in his intact visual catalan. He is scheduled to see an eye doctor for this. He he was also diagnosed with a parkinsonian syndrome in March and started on Sinemet. That was quite helpful at the time but his Parkinson's seems to gotten worse in the last couple days with more tremor, worsening coordination and weakness. [facility] Medical History (Updated 06/26/24 @ 17:01 by Moo Villalobos MD) Weakness ?R53.1 - Weakness (ICD-10) Parkinson's disease (tremor, stiffness, slow motion, unstable posture) ?G20.A1 - Parkinson's disease without dyskinesia, without mention of fluctuations (ICD-10) Acute kidney injury superimposed on chronic kidney disease ?N17.9 - Acute kidney failure, unspecified (ICD-10) ?N18.9 - Chronic kidney disease, unspecified (ICD-10) Sensorineural hearing loss ?H90.5 - Unspecified sensorineural hearing loss (ICD-10) Elevated PSA ?R97.20 - Elevated prostate specific antigen [PSA] (ICD-10) Hyperlipidemia ?E78.5 - Hyperlipidemia, unspecified (ICD-10) Hypertension ?I10 - Essential (primary) hypertension (ICD-10) Occipital stroke ?I63.9 - Cerebral infarction, unspecified (ICD-10) Urinary retention ?R33.9 - Retention of urine, unspecified (ICD-10) Tremor ?R25.1 - Tremor, unspecified (ICD-10) Surgical History H/O cataract extraction ?Z98.49 - Cataract extraction status, unspecified eye (ICD-10) History of arthroplasty of left knee ?Z96.652 - Presence of left artificial knee joint (ICD-10) S/P arthroscopy of left shoulder ?Z98.890 - Other specified postprocedural states (ICD-10) Family History Other Parkinsons disease Social History Narrative: 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 Code status is full. He does not drink. Remote history of smoking. What is your current living situation?: I presently have a place to live Problems where you live: no known problems Problems where you live details: N/A In the past 12 months, utilities in danger of being shut off: no In past 12 months, lack of transportation kept you from medical appts, meetings, work, or getting things needed for daily living: no In the past 12 mos, have been you worried that your food would run out before you had money to buy more?: never true In the past 12 mos, the food you bought just didn't last and you didn't have money to buy more?: never true Highest level of school completed/degree received: high school graduate Smoking Status: Former smoker Do you use any of these nicotine containing products: None Second hand tobacco smoke exposure: No How often do you have a drink containing alcohol: never AUDIT-C Alcohol total score: 0 Non-prescribed substance use: denies use Caffeine: Yes How often does anyone, including family, friends and others, physically hurt you : never How often does anyone, including family, friends and others, insult or talk down to you: never How often does anyone, including family, friends and others, threaten you with harm: never How often does anyone, including family, friends and others, scream or curse at you: never service: No Meds Home Medications and Allergies Home Medications ?Medication ?Instructions ?Recorded ?Confirmed ?Type atorvastatin 10 mg tablet 10 mg PO QHS 03/17/24 06/26/24 History cholecalciferol (vitamin D3) 50 50 mcg PO DAILY 03/17/24 06/26/24 History mcg (2,000 unit) capsule clopidogrel 75 mg tablet 75 mg PO DAILY 03/17/24 06/26/24 History finasteride 5 mg tablet (Proscar) 5 mg PO DAILY 03/17/24 06/26/24 History tamsulosin 0.4 mg capsule (Flomax) 0.8 mg PO QPM 03/17/24 06/26/24 History dorzolamide 22.3 mg-timolol 6.8 1 drp ophthalmic (eye) BID 03/21/24 06/26/24 History mg/mL eye drops carbidopa 25 mg-levodopa 100 mg 1 tab PO .TIDAC 06/26/24 06/26/24 History tablet Allergies Allergy/AdvReac Type Severity Reaction Status Date / Time amlodipine AdvReac Mild Verified 06/26/24 08:57 labetalol AdvReac Mild Dizziness Verified 06/26/24 08:57 omeprazole AdvReac Mild Rash Verified 06/26/24 08:57 Exam Narrative: Exam Narrative: He is alert and appears in no distress. Hard of hearing. Oriented to his circumstances. Gives appropriate answers to questions. Additional history corroborated by his . Head is without trauma. No marked facial asymmetry. Speech is fluent. Extraocular movements are full. He has very limited vision outside of his central vision. This affects both left and right visual catalan. Oropharynx with small airway and prominent tongue. He has loss of lower central incisors. Neck is supple without mass or adenopathy. Respirations are clear to auscultation. Breathing is unlabored. Cardiovascular: S1, S2, regular rate and rhythm. Abdomen: Bowel sounds active. Abdomen is soft without tenderness or mass. External genitalia normal except for a Montoya urethral catheter. Upper extremities. He is weak and slow moving with his left upper extremity. Coarse resting tremor is noted more prominently in his left hand. He does [id number] but very slowly and in accurately on the left. Normal on the right. Lower extremities with grossly intact strength. Is intact pedal pulses and no significant edema. Const: Vital Signs, click to edit/add: Vital Signs - 24 hr 06/26/24 08:48 06/26/24 10:02 06/26/24 10:15 Temperature 99.0 F Pulse Rate 90 88 Pulse Rate [Pulse Oximeter] 102 H Respiratory Rate 16 Blood Pressure Blood Pressure [Ri ght Arm] Blood Pressure [Ri ght Upper Arm] 171/132 H Pulse Oximetry 96 96 96 Oxygen Delivery Me thod Room Air 06/26/24 10:20 06/26/24 10:21 06/26/24 10:30 Temperature Pulse Rate 87 86 79 Pulse Rate [Pulse Oximeter] Respiratory Rate Blood Pressure 181/91 H Blood Pressure [Ri ght Arm] Blood Pressure [Ri ght Upper Arm] Pulse Oximetry 96 95 95 Oxygen Delivery Me thod 06/26/24 10:45 06/26/24 11:00 06/26/24 11:02 Temperature Pulse Rate 76 74 77 Pulse Rate [Pulse Oximeter] Respiratory Rate 16 Blood Pressure 181/85 H Blood Pressure [Ri ght Arm] Blood Pressure [Ri ght Upper Arm] Pulse Oximetry 96 97 97 Oxygen Delivery Me thod 06/26/24 11:57 06/26/24 12:25 06/26/24 15:00 Temperature 98.1 F 98.8 F Pulse Rate Pulse Rate [Pulse Oximeter] 97 90 Respiratory Rate 20 18 Blood Pressure Blood Pressure [Ri ght Arm] 174/105 H 170/68 H Blood Pressure [Ri ght Upper Arm] Pulse Oximetry 97 97 94 Oxygen Delivery Me thod Room Air Room Air Room Air 06/26/24 15:00 Temperature Pulse Rate Pulse Rate [Pulse Oximeter] 90 Respiratory Rate 18 Blood Pressure Blood Pressure [Ri ght Arm] Blood Pressure [Ri ght Upper Arm] Pulse Oximetry Oxygen Delivery Me thod Documenting provider has reviewed patient's vital signs: yes Hospitalist - H&P: Result Labs Labs: Short CBC 06/26/24 Range/Units 09:45 WBC 9.52 (4.50-11.00) K/uL Hgb 11.8 L (13.5-17.5) gm/dL Hct 36.3 L (37.0-53.0) % Plt Count 156 (140-440) K/uL BMP 06/26/24 09:45 Sodium 134 L Potassium 3.8 Chloride 104 Carbon Dioxide 21 BUN 23 Creatinine 1.3 Glucose 143 H Calcium 8.7 Liver Function 06/26/24 Range/Units 09:45 Total Bilirubin 1.8 H (0.1-1.5) mg/dL AST 23 (12-35) U/L ALT 6 (4-50) U/L Alkaline Phosphatase 58 (40-150) U/L Albumin 3.9 (3.3-5.0) g/dL Urine 06/26/24 Range/Units 10:00 Urine Color Yellow (Yellow) Urine Appearance Cloudy A (Clear) Urine pH 5.5 (5.0-8.5) Ur Specific [place] 1.020 (1.000-1.030) Urine Protein 2+ A (Negative) Urine Glucose (UA) Negative (Negative) Assessment and Plan Assessment and plan (1) Urinary tract infection: Problem comment: Apparently has a poorly functioning bladder. Urology discussed surgical options and patient has elected for now to just maintain an indwelling urethral catheter. Status: Acute (2) Parkinson's disease (tremor, stiffness, slow motion, unstable posture): Problem comment: Patient diagnosed with Parkinson's in March 2024 based on worsening tremor. Treated with Sinemet which is helpful. Neurology consult pending July 14 2024 Status: Acute (3) Weakness: Problem comment: Acute on chronic weakness associated with current acute infection and underlying Parkinson's. Status: Acute Plan Patient is admitted for treatment of acute urinary tract infection causing acute on chronic weakness and disability. Treat with IV antibiotics pending culture. IV fluids as necessary. Encourage p.o. intake. PT and OT to assess weakness and disability. Exchange Montoya catheter. Discharge to home when able to ambulate and signs and symptoms of acute UTI have improved Total Time Spent Total Time Spent: Total time spent is 60 minutes in evaluation and management, discussing with patient and other providers plan of care
[2024-06-26] MEDS: ACETAMINOPHEN 325 MG TABLET 650 MG PO (17:07)
[2024-06-26] MEDS: TAMSULOSIN HCL 0.4 MG CAPSULE 0.8 MG PO (17:59)
[2024-06-26] MEDS: ATORVASTATIN 10 MG TABLET PO (20:46)
[2024-06-26] MEDS: timoloL maleate 0.5 % 1 DROP EYE-BOTH (20:50)
[2024-06-26] MEDS: DORZOLAMIDE HCL 2 % OPHTH DROP 1 DROP EYE-BOTH (20:50)
--- NOTE | 2024-06-26 22:36 | PC.NURSE ---
Pt A&O. VSS with the exception of a febrile episode this evening with a temp. of 101.5 F. RN admin. PRN Acetaminophen and fever later broke with a temp. at 98.2 F. RN tried to stand patient out of bed but pt was too weak. Montoya cath changed and intact and patent. Urine is straw colored, foul odor with some intermittent sediment. RN encouraged pt to drink fluids throughout shift and pt responded well to fluid intake. Regular diet and tolerated well. Ate approx. 50% of dinner.
[2024-06-27] VITALS (8 sets, daily range): BP systolic 157–190; BP diastolic 77–100; PULSE 77–96; RESP 16–24; TEMP 36.5–37.2; O2SAT 95–97
[2024-06-27] MEDS: CARBIDOPA-LEVODOPA 25-100 TABLET 1 TAB PO ×3 (07:53→17:44)
--- NOTE | 2024-06-27 09:13 | REH.OT ---
Due to chest pain today, MD requests to hold off on therapy until testing has been completed. OT/PT evaluations to be rescheduled for tomorrow.
[2024-06-27] MEDS: CLOPIDOGREL 75 MG TABLET PO (09:37)
[2024-06-27] MEDS: DORZOLAMIDE HCL 2 % OPHTH DROP 1 DROP EYE-BOTH ×2 (09:38→21:23)
[2024-06-27] MEDS: timoloL maleate 0.5 % 1 DROP EYE-BOTH ×2 (09:38→21:23)
[2024-06-27] MEDS: FINASTERIDE 5 MG TABLET PO (09:38)
[2024-06-27] MEDS: SODIUM CHLORIDE 0.9 % (FLUSH) 10 ML SYRINGE 5 ML IVF ×2 (09:39→21:24)
[2024-06-27 12:11] LABS: Chloride* 99 mmol/L (96-114)
[2024-06-27 12:12] LABS: Potassium* 3.6 mmol/L (3.6-5.1); Sodium* 129 mmol/L (135-149)
[2024-06-27 12:14] LABS: Creatinine* 1.3 mg/dL (0.5-1.5); Estimated Glomerular Filt Rate 54 ml/min
[2024-06-27 12:15] LABS: Anion Gap 10 mEq/L (7-15); Blood Urea Nitrogen* 23 mg/dL (7-30); Calcium* 8.1 mg/dL (8.4-10.6); Carbon Dioxide* 20 mmol/L (20-32); Glucose* 146 mg/dL (60-115)
[2024-06-27 12:27] LABS: Troponin I* 0.05 ng/mL (0.01-0.04)
[2024-06-27] MEDS: cefTRIAXone 2 GM in 0.9 % SODIUM CHLORIDE Mini-bag 100 ML IVPB (14:34)
[2024-06-27] MEDS: ACETAMINOPHEN 325 MG TABLET 650 MG PO (14:34)
--- NOTE | 2024-06-27 15:26 | PC.NURSE ---
End of shift: Patient pleasant and cooperative, A&O. VSS, afebrile. Patients catheter is patent and draining cloudy, straw urine. Patient reported chest pain this morning, MD notified, EKG completed. Patient reported aching on his arms this shift, managed with PRN medication, see MAR. A1 with walker and gait belt. Tolerating regular diet.
--- NOTE | 2024-06-27 16:14 | PM.IMPN1 ---
Progress Note: A&P Assessment and plan (1) Urinary tract infection: Problem details: Apparently has a poorly functioning bladder. Urology discussed surgical options and patient has elected for now to just maintain an indwelling urethral catheter. - febrile yesterday evening. - continue ceftriaxone - Montoya catheter changed yesterday upon admission Status: Acute (2) Weakness: Problem details: Acute on chronic weakness associated with current acute infection and underlying Parkinson's. - continue PT and OT. Weakness improving. Status: Acute (3) Parkinson's disease (tremor, stiffness, slow motion, unstable posture): Problem details: Patient diagnosed with Parkinson's in March 2024 based on worsening tremor. Treated with Sinemet which is helpful. Neurology consult pending July 14 2024 - continue home dosing of Sinemet Status: Chronic (4) Chronic kidney disease: Problem details: CKD stage 3 with a baseline creatinine of 1.3, stable Status: Chronic (5) Chest pain: Problem details: - EKG obtained today was unremarkable. Troponin 0.05, will recheck in the morning. I suspect chest pain is due to GERD. Patient is unable to take a PPI due to side effects. Will order Tums. Status: Acute (6) GERD (gastroesophageal reflux disease): Problem details: Not currently taking PPI due to adverse reaction Status: Chronic Subjective Time Seen by Provider: 09:00 Date Seen: 06/27/24 Interval history: Rad is feeling much better today. He told me that he has been having pretty constant chest pain in the very center of his chest that gets worse when he is laying down, especially after a meal, and gets better when he sits up. Nothing else makes it better or worse. He has a history of GERD and had to recently discontinue Prilosec because he was getting some sores that he would pick at on his upper thighs. He says these got better once he stopped taking Prilosec. His daughter is here with him today. Exam Narrative: Exam Narrative: General: No acute distress. Awake, alert, oriented x3, does seem to get confused on some of the details about his medical history. No pallor. No jaundice. Coarse resting tremor of the left hand noted. Oropharynx: Clear. Mucous membranes moist. Cardiovascular: Regular rate and rhythm. No murmurs, gallops, or rubs. Respiratory: Clear to auscultation bilaterally. No wheezes or crackles. Abdomen: Bowel sounds present. Soft, nondistended, nontender. Extremities: No pedal edema. Const: Vital Signs, click to edit/add: Vital Signs - 24 hr 06/26/24 17:07 06/26/24 18:15 06/26/24 19:00 Temperature 101.5 F H 100.5 F H 98.2 F Pulse Rate [Pulse Oximeter] 65 Respiratory Rate 18 Blood Pressure [Ri ght Arm] 132/81 Pulse Oximetry 95 Oxygen Delivery Me thod Room Air 06/26/24 22:59 06/26/24 23:00 06/27/24 04:13 Temperature 97.7 F 98.1 F Pulse Rate [Pulse Oximeter] 60 60 77 Respiratory Rate 16 16 20 Blood Pressure [Ri ght Arm] 146/80 H 157/83 H Pulse Oximetry 94 97 Oxygen Delivery Me thod Room Air Room Air 06/27/24 07:58 06/27/24 08:00 06/27/24 12:22 Temperature 99.0 F 98.6 F Pulse Rate [Pulse Oximeter] 80 80 87 Respiratory Rate 18 18 18 Blood Pressure [Ri ght Arm] 187/91 H 168/94 H Pulse Oximetry 96 96 Oxygen Delivery Me thod Room Air Room Air 06/27/24 15:00 06/27/24 15:00 Temperature 98.5 F Pulse Rate [Pulse Oximeter] 96 96 Respiratory Rate 18 18 Blood Pressure [Ri ght Arm] 188/100 H Pulse Oximetry 95 Oxygen Delivery Me thod Room Air Documenting provider has reviewed patient's vital signs: yes Labs Labs: Laboratory Results - last 24 hr 06/27/24 11:43 Sodium 129 L Potassium 3.6 Chloride 99 Carbon Dioxide 20 Anion Gap 10 BUN 23 Creatinine 1.3 Estimated Creat Clear 48.30 Estimated GFR 54 Glucose 146 H Calcium 8.1 L Troponin I 0.05 H
[2024-06-27] MEDS: TAMSULOSIN HCL 0.4 MG CAPSULE 0.8 MG PO (17:41)
[2024-06-27] MEDS: CALCIUM CARBONATE 500 MG CHEW PO (18:16)
[2024-06-27] MEDS: ATORVASTATIN 10 MG TABLET PO (21:23)
--- NOTE | 2024-06-27 21:57 | PC.NURSE ---
Pt VSS. A&O x4. Tolerated a regular diet. Ate approx 75% of dinner. New IV placed in right forearm due infilatration of IV in left forearm. A1 with amb to and from bathroom and chair with gait belt and walker. Montoya cath intact and patent.
[2024-06-28 03:00] VITALS: BP 168/80; PULSE 70; RESP 20; TEMP 36.8; O2SAT 94
[2024-06-28 06:16] LABS: Basophils Absolute Auto 0.02 K/uL (0.00-0.30); Basophils Percent Auto 0.4 % (0.0-3.0); Eosinophils Absolute Auto 0.01 K/uL (0.00-0.50); Eosinophils Percent Auto 0.2 % (0.0-7.0); Hematocrit 34.6 % (37.0-53.0); Hemoglobin* 11.3 gm/dL (13.5-17.5); Immature Granulocytes Abs Auto 0.03 K/uL (0.00-0.30); Immature Granulocytes Pct Auto 0.5 %; Lymphocytes Percent Auto 16.8 % (20-44); Mean Corpuscular HGB Conc 33 gm/dL (32-36); Mean Corpuscular Hemoglobin 29 pg (26-34); Mean Corpuscular Volume 88 fL (80-100); Monocytes Percent Auto 12.5 % (0.0-11.0); Neutrophils Absolute Auto 3.89 K/uL (1.7-7.0); Neutrophils Percent Auto 69.6 % (42.0-72.0); Platelet Count* 153 K/uL (140-440); RDW Coefficient of Variation % 13.3 % (11.5-15.5); Red Blood Count 3.94 m/uL (4.30-5.90); White Blood Count* 5.59 K/uL (4.50-11.00)
[2024-06-28 06:20] LABS: Slide Review Reflex No
--- NOTE | 2024-06-28 06:22 | PC.NURSE ---
End of shift [id number]: Pt AxOx4, calm, and cooperative. Montoya cath intact and patent. VSS on RA. Pt slept for entirety of shift. Pt denies pain/headache/nausea/SOB. Pt appears resting with call light in reach. ?
[2024-06-28 06:29] LABS: Albumin* 3.3 g/dL (3.3-5.0); Chloride* 102 mmol/L (96-114)
[2024-06-28 06:30] LABS: Potassium* 3.7 mmol/L (3.6-5.1); Sodium* 131 mmol/L (135-149)
[2024-06-28 06:32] LABS: Anion Gap 8 mEq/L (7-15); Bilirubin Total* 0.6 mg/dL (0.1-1.5); Carbon Dioxide* 21 mmol/L (20-32); Creatinine* 1.3 mg/dL (0.5-1.5); Estimated Glomerular Filt Rate 54 ml/min; Total Protein* 6.4 g/dL (6.0-8.3)
[2024-06-28 06:33] LABS: Alanine Aminotransferase* 13 U/L (4-50); Alkaline Phosphatase* 62 U/L (40-150); Aspartate Amino Transferase* 40 U/L (12-35); Blood Urea Nitrogen* 21 mg/dL (7-30); Calcium* 8.2 mg/dL (8.4-10.6); Glucose* 113 mg/dL (60-115)
[2024-06-28 06:45] LABS: Troponin I* 0.03 ng/mL (0.01-0.04)
[2024-06-28 08:31] VITALS: BP 160/101; PULSE 68; RESP 20; TEMP 37.4; O2SAT 97
[2024-06-28] MEDS: CARBIDOPA-LEVODOPA 25-100 TABLET 1 TAB PO ×3 (08:37→18:39)
[2024-06-28] MEDS: CLOPIDOGREL 75 MG TABLET PO (08:37)
[2024-06-28] MEDS: timoloL maleate 0.5 % 1 DROP EYE-BOTH ×2 (08:38→21:02)
[2024-06-28] MEDS: FINASTERIDE 5 MG TABLET PO (08:38)
[2024-06-28] MEDS: DORZOLAMIDE HCL 2 % OPHTH DROP 1 DROP EYE-BOTH ×2 (08:38→21:02)
[2024-06-28] MEDS: SODIUM CHLORIDE 0.9 % (FLUSH) 10 ML SYRINGE 5 ML IVF ×2 (08:38→21:02)
[2024-06-28 11:00] VITALS: BP 150/86; PULSE 73; RESP 24; O2SAT 98
--- NOTE | 2024-06-28 13:13 | P.IMPN_ITS ---
Progress Note: A&P Assessment and plan (1) Urinary tract infection: Problem details: Apparently has a poorly functioning bladder. Urology discussed surgical options and patient has elected for now to just maintain an indwelling urethral catheter. - Montoya catheter changed upon admission - afebrile for about 36 hours - UC - 3 types of Gneg rods - Continue ceftriaxone while awaiting final UC Status: Acute (2) Weakness: Problem details: Acute on chronic weakness associated with current acute infection and underlying Parkinson's. - continue PT and OT. Weakness improving Status: Acute (3) Parkinson's disease (tremor, stiffness, slow motion, unstable posture): Problem details: Patient diagnosed with Parkinson's in March 2024 based on worsening tremor. Treated with Sinemet which is helpful. Neurology consult pending July 14 2024 - continue home dosing of Sinemet Status: Chronic (4) Chronic kidney disease: Problem details: CKD stage 3 with a baseline creatinine of 1.3, stable Status: Chronic (5) Chest pain: Problem details: - EKG was unremarkable. Troponin 0.05, then 0.03. I suspect chest pain is due to GERD. Patient is unable to take a PPI due to side effects. Continue Tums. Status: Acute (6) GERD (gastroesophageal reflux disease): Problem details: Not currently taking PPI due to adverse reaction Status: Chronic (7) Cognitive impairment: Problem details: 06/28/24 MOCA Status: Suspected Subjective Time Seen by Provider: 09:00 Date Seen: 06/28/24 Interval history: Rad feels back to his usual self today. His daughter, Nurys, was in the room for part my visit. We discussed ways in which he could be motivated to get out of the chair to ambulate more frequently at home. He denies CP, SOB. Exam Narrative: Exam Narrative: General: No acute distress. Awake, alert, oriented x3. No pallor. No jaundice. Coarse resting tremor of the left hand noted, mild today. Oropharynx: Clear. Mucous membranes moist. Cardiovascular: Regular rate and rhythm. No murmurs, gallops, or rubs. Respiratory: Clear to auscultation bilaterally. No wheezes or crackles. Abdomen: Bowel sounds present. Soft, nondistended, nontender. Extremities: No pedal edema. Const: Vital Signs, click to edit/add: Vital Signs - 24 hr 06/27/24 15:00 06/27/24 15:00 06/27/24 16:56 Temperature 98.5 F 98.5 F Pulse Rate [Pulse Oximeter] 96 96 Respiratory Rate 18 18 Blood Pressure [Ri ght Arm] 188/100 H Pulse Oximetry 95 Oxygen Delivery Me thod Room Air 06/27/24 19:00 06/27/24 23:00 06/28/24 03:00 Temperature 97.7 F 98 F 98.2 F Pulse Rate [Pulse Oximeter] 85 78 70 Respiratory Rate 16 24 20 Blood Pressure [Ri ght Arm] 157/77 H 190/95 H 168/80 H Pulse Oximetry 95 97 94 Oxygen Delivery Me thod Room Air Room Air Room Air 06/28/24 08:31 06/28/24 08:31 06/28/24 11:00 Temperature 99.4 F Pulse Rate [Pulse Oximeter] 68 68 73 Respiratory Rate 20 20 24 Blood Pressure [Ri ght Arm] 160/101 H 150/86 H Pulse Oximetry 97 98 Oxygen Delivery Me thod Room Air Room Air Documenting provider has reviewed patient's vital signs: yes Labs Labs: Laboratory Results - last 24 hr 06/28/24 06:04 WBC 5.59 RBC 3.94 L Hgb 11.3 L Hct 34.6 L MCV 88 MCH 29 MCHC 33 RDW Coeff of Rossy 13.3 Plt Count 153 Neut % (Auto) 69.6 Lymph % (Auto) 16.8 L [place] % (Auto) 12.5 H Eos % (Auto) 0.2 Baso % (Auto) 0.4 Neut # (Auto) 3.89 Lymph # (Auto) 0.90 [place] # (Auto) 0.70 Eos # (Auto) 0.01 Baso # (Auto) 0.02 Abs Immat Gran (auto) 0.03 Imm/Tot Granulo (auto) 0.5 Sodium 131 L Potassium 3.7 Chloride 102 Carbon Dioxide 21 Anion Gap 8 BUN 21 Creatinine 1.3 Estimated Creat Clear 48.30 Estimated GFR 54 Glucose 113 Calcium 8.2 L Total Bilirubin 0.6 AST 40 H ALT 13 Alkaline Phosphatase 62 Troponin I 0.03 Total Protein 6.4 Albumin 3.3
[2024-06-28 15:00] VITALS: BP 142/80; BP 150/80; BP 160/80; BP 160/90; PULSE 73; PULSE 74; PULSE 76; PULSE 92; RESP 18; TEMP 36.6; O2SAT 97
[2024-06-28] MEDS: cefTRIAXone 2 GM in 0.9 % SODIUM CHLORIDE Mini-bag 100 ML IVPB (15:32)
[2024-06-28] MEDS: PSYLLIUM HUSK (WITH SUGAR) 12 GM PACKET PO (16:41)
[2024-06-28] MEDS: TAMSULOSIN HCL 0.4 MG CAPSULE 0.8 MG PO (18:39)
[2024-06-28] MEDS: ACETAMINOPHEN 325 MG TABLET 650 MG PO (18:39)
--- NOTE | 2024-06-28 18:46 | PC.NURSE ---
Nursing Care Hours: 1719-0421 Pt this shift calm and cooperaitve, alert and oriented. C/o chronic back pain, treated per eMAR. HTN noted but BP do run softer with manual BP vs automatic. Afebrile. Montoya patent. Pt having incontinent loose stools. Pt reports taking Metamucil gummies three times a day for bulk. Started our Metamucil this evening. Walking with Ax1 with walker.
[2024-06-28 19:00] VITALS: BP 152/86; PULSE 80; RESP 18; TEMP 36.6; O2SAT 94
[2024-06-28] MEDS: ATORVASTATIN 10 MG TABLET PO (21:02)
[2024-06-28 23:00] VITALS: BP 138/81; PULSE 59; RESP 18; RESP 20; TEMP 36.2; O2SAT 94
[2024-06-29] VITALS (7 sets, daily range): BP systolic 134–197; BP diastolic 71–104; PULSE 68–96; RESP 16–18; TEMP 36.4–36.7; O2SAT 94–97
--- NOTE | 2024-06-29 06:25 | PC.NURSE ---
End of shift [id number]: Pleasant and cooperative with cares. Denies any pain this shift. Montoya catheter patent, draining clear, pale yellow urine. Transfers with assist x 1 and ambulates with walker and gait belt.
[2024-06-29] MEDS: CARBIDOPA-LEVODOPA 25-100 TABLET 1 TAB PO ×3 (07:27→17:36)
[2024-06-29] MEDS: PSYLLIUM HUSK (WITH SUGAR) 12 GM PACKET PO (08:33)
[2024-06-29] MEDS: DORZOLAMIDE HCL 2 % OPHTH DROP 1 DROP EYE-BOTH ×2 (08:34→20:52)
[2024-06-29] MEDS: SODIUM CHLORIDE 0.9 % (FLUSH) 10 ML SYRINGE 5 ML IVF ×2 (08:34→20:52)
[2024-06-29] MEDS: CLOPIDOGREL 75 MG TABLET PO (08:34)
[2024-06-29] MEDS: FINASTERIDE 5 MG TABLET PO (08:34)
[2024-06-29] MEDS: timoloL maleate 0.5 % 1 DROP EYE-BOTH ×2 (08:34→20:52)
--- NOTE | 2024-06-29 13:53 | PM.IMPN1 ---
Progress Note: A&P Assessment and plan (1) E coli bacteremia: Problem details: - Obtain BC to confirm resolution of bacteremia - If neg, place PICC and d/c home on IV ceftriaxone, total 10 days for complicated UTI with bacteremia Organism 1 Escherichia coli Growth detected in Aerobic bottle Critical Results Called To & Readback By: CHIARA Reported By: ROSENDO 06/26/24 8710 E coli TY RX --------- --- Ampicillin >=32 R Ampicillin/Sulbactam 8 S Cefazolin <=4 S Cefepime <=1 S Cefoxitin <=4 S Ceftazidime <=1 S Ceftriaxone <=1 S Ciprofloxacin <=0.25 S Ertapenem <=0.5 S Gentamicin <=1 S Imipenem <=0.25 S Levofloxacin <=0.12 S Tobramycin <=1 S Trimethoprim/Sulfamethoxazole <=20 S Piperacillin/Tazobactam <=4 S Status: Acute (2) Urinary tract infection: Problem details: Apparently has a poorly functioning bladder. Urology discussed surgical options and patient has elected for now to just maintain an indwelling urethral catheter. - Montoya catheter changed upon admission - afebrile for about 36 hours - UC - 3 types of Gneg rods - Continue ceftriaxone Urine Culture* Final ML Organism 1 Escherichia coli Ur [place] Count >100,000 CFU/ml Organism 2 Klebsiella pneumoniae Ur [place] Count 50,000 - 60,000 CFU/ml Organism 3 Acinetobacter haemolyticus Ur [place] Count >100,000 CFU/ml <10,000 COL/ML GRAM POSITIVE IMANI NO FURTHER WORKUP E coli Kleb pneum A Haemoly TY RX TY RX YT RX --------- --- --------- --- --------- --- Ampicillin >=32 R >=32 R Ampicillin/Sulbactam 16 I 4 S <=2 S Cefazolin <=4 S <=4 S Cefepime <=1 S <=1 S 2 S Cefoxitin <=4 S <=4 S Ceftazidime <=1 S <=1 S 4 S Ceftriaxone <=1 S <=1 S 8 S Ciprofloxacin <=0.25 S <=0.25 S <=0.25 S Ertapenem <=0.5 S <=0.5 S Gentamicin <=1 S <=1 S <=1 S Imipenem <=0.25 S 0.5 S <=0.25 S Levofloxacin <=0.12 S <=0.12 S Nitrofurantoin <=16 S 64 I Tobramycin <=1 S <=1 S >=16 R Trimethoprim/Sulfamethoxazole <=20 S <=20 S Piperacillin/Tazobactam <=4 S <=4 S Status: Acute (3) Weakness: Problem details: Acute on chronic weakness associated with current acute infection and underlying Parkinson's. - continue PT and OT. Weakness improving Status: Acute (4) Parkinson's disease (tremor, stiffness, slow motion, unstable posture): Problem details: Patient diagnosed with Parkinson's in March 2024 based on worsening tremor. Treated with Sinemet which is helpful. Neurology consult pending July 14 2024 - continue home dosing of Sinemet Status: Chronic (5) Chronic kidney disease: Problem details: CKD stage 3 with a baseline creatinine of 1.3, stable Status: Chronic (6) Chest pain: Problem details: - EKG was unremarkable. Troponin 0.05, then 0.03. I suspect chest pain is due to GERD. Patient is unable to take a PPI due to side effects. Continue Tums. Status: Acute (7) GERD (gastroesophageal reflux disease): Problem details: Not currently taking PPI due to adverse reaction Status: Chronic (8) Cognitive impairment: Problem details: 06/28/24 MOCA Status: Suspected Subjective Time Seen by Provider: 09:21 Date Seen: 06/29/24 Interval history: Rad's , Liz was here this morning and his daughter, Nurys, came in briefly for an update as well. Rad continues to feel better. We discussed positive BC, 3 different bacteria on UC and that they are all sensitive to ceftriaxone. They're all agreeable with PICC and outpaient antibiotics. Exam Narrative: Exam Narrative: General: No acute distress. Awake, alert, oriented x3. No pallor. No jaundice. Coarse resting tremor of the left hand noted, mild today. Oropharynx: Clear. Mucous membranes moist. Cardiovascular: Regular rate and rhythm. No murmurs, gallops, or rubs. Respiratory: Clear to auscultation bilaterally. No wheezes or crackles. Abdomen: Bowel sounds present. Soft, nondistended, nontender. Extremities: No pedal edema. Const: Vital Signs, click to edit/add: Vital Signs - 24 hr 06/28/24 15:00 06/28/24 15:00 06/28/24 15:00 Temperature 97.9 F Pulse Rate [Pulse Oximeter] 73 73 Pulse Rate [orthos tatic lying Right Pulse Oximeter] 92 Pulse Rate [orthos tatic sitting Righ t Pulse Oximeter] 74 Pulse Rate [orthos tatic standing Rig ht Pulse Oximeter] 76 Respiratory Rate 18 18 Blood Pressure [Ri ght Arm] 160/90 H Blood Pressure [or thostatic lying Ri ght Arm] 160/80 H Blood Pressure [or thostatic sitting Right Arm] 150/80 H Blood Pressure [or thostatic standing Right Arm] 142/80 H Pulse Oximetry 97 Oxygen Delivery Me thod Room Air 06/28/24 19:00 06/28/24 23:00 06/28/24 23:00 Temperature 97.9 F 97.2 F L Pulse Rate [Pulse Oximeter] 80 59 L 59 L Pulse Rate [orthos tatic lying Right Pulse Oximeter] Pulse Rate [orthos tatic sitting Righ t Pulse Oximeter] Pulse Rate [orthos tatic standing Rig ht Pulse Oximeter] Respiratory Rate 18 18 20 Blood Pressure [Ri ght Arm] 152/86 H 138/81 Blood Pressure [or thostatic lying Ri ght Arm] Blood Pressure [or thostatic sitting Right Arm] Blood Pressure [or thostatic standing Right Arm] Pulse Oximetry 94 94 Oxygen Delivery Me thod Room Air Room Air 06/29/24 07:30 06/29/24 07:30 06/29/24 11:18 Temperature 97.8 F 97.6 F Pulse Rate [Pulse Oximeter] 68 68 77 Pulse Rate [orthos tatic lying Right Pulse Oximeter] Pulse Rate [orthos tatic sitting Righ t Pulse Oximeter] Pulse Rate [orthos tatic standing Rig ht Pulse Oximeter] Respiratory Rate 18 18 18 Blood Pressure [Ri ght Arm] 190/98 H 161/91 H Blood Pressure [or thostatic lying Ri ght Arm] Blood Pressure [or thostatic sitting Right Arm] Blood Pressure [or thostatic standing Right Arm] Pulse Oximetry 97 97 Oxygen Delivery Me thod Room Air Room Air Documenting provider has reviewed patient's vital signs: yes
[2024-06-29] MEDS: cefTRIAXone 2 GM in 0.9 % SODIUM CHLORIDE Mini-bag 100 ML IVPB (15:08)
[2024-06-29] MEDS: TAMSULOSIN HCL 0.4 MG CAPSULE 0.8 MG PO (17:36)
--- NOTE | 2024-06-29 19:34 | PC.NURSE ---
End of Shift: Patient pleasant and cooperative, A&O. VSS, afebrile. Catheter patent and draining clear, pale yellow urine. 1A with walker and gait belt to the bathroom this shift. Denies pain this shift.
[2024-06-29] MEDS: ATORVASTATIN 10 MG TABLET PO (20:52)
[2024-06-30 03:00] VITALS: RESP 18
--- NOTE | 2024-06-30 05:48 | PC.NURSE ---
End of shift report [id number]: Pleasant and cooperative with cares. Denies any pain, shortness of breath or chest pain this shift. Alert and oriented x 3, intermittent confusion to date and time. Montoya catheter patent, draining clear, pale yellow urine. Transfers and ambulates with SBA.
[2024-06-30] MEDS: CARBIDOPA-LEVODOPA 25-100 TABLET 1 TAB PO ×2 (06:41→11:53)
--- NOTE | 2024-06-30 07:45 | PM.DS1 ---
DS: Providers Provider Time Seen by Provider: 10:45 Date Seen: 06/30/24 Date of admission: 06/26/24 22:29 Primary care physician: Kemar Tanner MD Admitting Clinician: Mary Baron MD Consults: 06/26/24 12:31 Consult to Occupational Therapy [CONS] Routine Comment: Reason(s) for OT Consult:: Difficulty Managing ADLs Any Restrictions?:: No Restrictions Consult to Physical Therapy [CONS] Routine Comment: Reason(s) for PT Consult:: Evaluate Ambulation Any Restrictions?:: No Restrictions 06/26/24 15:28 Consult to Occupational Therapy [CONS] Routine Comment: Reason(s) for OT Consult:: Evaluate and Treat Any Restrictions?:: No Restrictions Consult to Physical Therapy [CONS] Routine Comment: Reason(s) for PT Consult:: Evaluate and Treat Any Restrictions?:: No Restrictions Attending Physician on discharge: Mary Baron MD Date of Discharge: 06/30/24 DS: Diagnosis Discharge Diagnosis (1) E coli bacteremia: Status: Acute Problem details: - Placing PICC and d/c home on IV ceftriaxone, total 10 days for complicated UTI with bacteremia Organism 1 Escherichia coli Growth detected in Aerobic bottle Critical Results Called To & Readback By: CHIARA Reported By: ROSENDO 06/26/24 9218 E coli TY RX --------- --- Ampicillin >=32 R Ampicillin/Sulbactam 8 S Cefazolin <=4 S Cefepime <=1 S Cefoxitin <=4 S Ceftazidime <=1 S Ceftriaxone <=1 S Ciprofloxacin <=0.25 S Ertapenem <=0.5 S Gentamicin <=1 S Imipenem <=0.25 S Levofloxacin <=0.12 S Tobramycin <=1 S Trimethoprim/Sulfamethoxazole <=20 S Piperacillin/Tazobactam <=4 S (2) Urinary tract infection: Status: Acute Problem details: Apparently has a poorly functioning bladder. Urology discussed surgical options and patient has elected for now to just maintain an indwelling urethral catheter. - العلي catheter changed upon admission - afebrile for about 36 hours - UC - 3 types of Gneg rods - Continue ceftriaxone as above Urine Culture* Final ML Organism 1 Escherichia coli Ur [place] Count >100,000 CFU/ml Organism 2 Klebsiella pneumoniae Ur [place] Count 50,000 - 60,000 CFU/ml Organism 3 Acinetobacter haemolyticus Ur [place] Count >100,000 CFU/ml <10,000 COL/ML GRAM POSITIVE IMANI NO FURTHER WORKUP E coli Kleb pneum A Haemoly TY RX TY RX TY RX --------- --- --------- --- --------- --- Ampicillin >=32 R >=32 R Ampicillin/Sulbactam 16 I 4 S <=2 S Cefazolin <=4 S <=4 S Cefepime <=1 S <=1 S 2 S Cefoxitin <=4 S <=4 S Ceftazidime <=1 S <=1 S 4 S Ceftriaxone <=1 S <=1 S 8 S Ciprofloxacin <=0.25 S <=0.25 S <=0.25 S Ertapenem <=0.5 S <=0.5 S Gentamicin <=1 S <=1 S <=1 S Imipenem <=0.25 S 0.5 S <=0.25 S Levofloxacin <=0.12 S <=0.12 S Nitrofurantoin <=16 S 64 I Tobramycin <=1 S <=1 S >=16 R Trimethoprim/Sulfamethoxazole <=20 S <=20 S Piperacillin/Tazobactam <=4 S <=4 S (3) Weakness: Status: Resolved Problem details: Acute on chronic weakness associated with current acute infection and underlying Parkinson's. - PT and OT evaluated. Weakness resolved (4) Parkinson's disease (tremor, stiffness, slow motion, unstable posture): Status: Chronic Problem details: Patient diagnosed with Parkinson's in March 2024 based on worsening tremor. Treated with Sinemet which is helpful. Neurology consult pending July 14 2024 - continue home dosing of Sinemet (5) Cognitive impairment: Status: Suspected Problem details: 06/28/24 MOCA (6) Chest pain: Status: Resolved Problem details: - EKG was unremarkable. Troponin 0.05, then 0.03. I suspect chest pain is due to GERD. Patient is unable to take a PPI due to side effects. Continue Tums. (7) GERD (gastroesophageal reflux disease): Status: Chronic Problem details: Not currently taking PPI due to adverse reaction (8) Chronic kidney disease: Status: Chronic Problem details: CKD stage 3 with a baseline creatinine of 1.3, stable DS: Summary Hospital Course Hospital Course: Rad Aburto is a 84 year old male with Parkinson's, stroke, indwelling urinary catheter presents with weakness for 1-2 days. The main symptom he has had is profound weakness. His notes that he has been unable to walk today because he is too weak. He is not aware of fever, cold, cough, shortness of breath, nausea, vomiting, diarrhea. He has a chronic indwelling العلي catheter has had previous episodes of illness like this with urinary infections. Most recently he had pansensitive E coli infection with a similar presentation 3 months ago. He reports a very poor appetite with some nausea but no vomiting. No abdominal pain or chest pain. Ecoli bacteremia and complicated UTI with indwelling العلي catheter improved with ceftriaxone. Please see diagnoses, above, for details. Rad is much improved from admission. Weakness is resolved. He is getting a midline PICC today and will d/c home for outpatient IV antibiotics for a total of 10 days. MOCA was completed during this hospital stay. I discussed pericares, keeping catheter bag lower than his bladder and keeping tubing unkinked to prevent backflow. Time Spent with Patient Time attestation: Total time spent providing and/or coordinating discharge services: Exam Narrative: Exam Narrative: General: No acute distress. Awake, alert, oriented x3. No pallor. No jaundice. Coarse resting tremor of the left hand noted, mild today. Oropharynx: Clear. Mucous membranes moist. Cardiovascular: Regular rate and rhythm. No murmurs, gallops, or rubs. Respiratory: Clear to auscultation bilaterally. No wheezes or crackles. Abdomen: Bowel sounds present. Soft, nondistended, nontender. Extremities: No pedal edema. Const: Vital Signs, click to edit/add: Vital Signs - 24 hr 06/29/24 11:18 06/29/24 15:56 06/29/24 16:41 Temperature 97.6 F 97.8 F Pulse Rate [Pulse Oximeter] 77 96 96 Pulse Rate [orthos tatic lying Right Pulse Oximeter] Pulse Rate [orthos tatic sitting Righ t Pulse Oximeter] Pulse Rate [orthos tatic standing Rig ht Pulse Oximeter] Respiratory Rate 18 18 18 Blood Pressure [Ri ght Arm] 161/91 H 141/85 H Blood Pressure [or thostatic lying Ri ght Arm] Blood Pressure [or thostatic sitting Right Arm] Blood Pressure [or thostatic standing Right Arm] Pulse Oximetry 97 96 Oxygen Delivery Me thod Room Air Room Air 06/29/24 19:00 06/29/24 19:22 06/29/24 23:00 Temperature 98.1 F Pulse Rate [Pulse Oximeter] 93 80 Pulse Rate [orthos tatic lying Right Pulse Oximeter] 74 Pulse Rate [orthos tatic sitting Righ t Pulse Oximeter] 80 Pulse Rate [orthos tatic standing Rig ht Pulse Oximeter] 92 Respiratory Rate 16 16 Blood Pressure [Ri ght Arm] 158/101 H Blood Pressure [or thostatic lying Ri ght Arm] 197/98 H Blood Pressure [or thostatic sitting Right Arm] 182/89 H Blood Pressure [or thostatic standing Right Arm] 175/104 H Pulse Oximetry 95 Oxygen Delivery Me thod Room Air 06/29/24 23:00 06/30/24 03:00 Temperature 97.7 F Pulse Rate [Pulse Oximeter] 80 Pulse Rate [orthos tatic lying Right Pulse Oximeter] Pulse Rate [orthos tatic sitting Righ t Pulse Oximeter] Pulse Rate [orthos tatic standing Rig ht Pulse Oximeter] Respiratory Rate 18 18 Blood Pressure [Ri ght Arm] 134/71 Blood Pressure [or thostatic lying Ri ght Arm] Blood Pressure [or thostatic sitting Right Arm] Blood Pressure [or thostatic standing Right Arm] Pulse Oximetry 94 Oxygen Delivery Me thod Room Air Documenting provider has reviewed patient's vital signs: yes DS: Data Data Completed and Pending Completed studies during hospitalization: 06/27/2024 EKG: Normal sinus rhythm with sinus arrhythmia, 73 beats per minute, normal EKG. Discharge Plan Discharge Disposition: Home, Self-Care Date of Admission: 06/26/24 22:29 Attending Provider on Discharge: Mary Baron Primary Care Provider: Kemar Tanner Condition: Stable Anticipated Discharge Date/Time: 06/30/24 14:00 Discharge Medications: Continued atorvastatin 10 mg tablet 10 mg PO QHS clopidogrel 75 mg tablet 75 mg PO DAILY cholecalciferol (vitamin D3) 50 mcg (2,000 unit) capsule 50 mcg PO DAILY finasteride [Proscar] 5 mg tablet 5 mg PO DAILY tamsulosin [Flomax] 0.4 mg capsule 0.8 mg PO QPM dorzolamide-timolol 22.3-6.8 mg/mL drops 1 drp ophthalmic (eye) BID Patient Comments: BOTH EYES carbidopa-levodopa 25-100 mg Tablet 1 tab PO .TIDAC Discharge Orders: Discharge Order (Routine); Ordered 06/30/24 Ordered By: Mary Baron Additional Instructions: Your catheter was changed on 06/26/24. You can call and reschedule your next outpatient catheter change based on this information. Activity Level: No Restrictions and Other Discharge Diet: Regular and Other Follow Up Appointments: Kemar Tanner MD [Primary Care Provider] - (1-2 weeks) Forms: [employer] Info Instructions
[2024-06-30 08:30] VITALS: BP 171/81; PULSE 63; RESP 20; TEMP 36.6; O2SAT 94
[2024-06-30] MEDS: FINASTERIDE 5 MG TABLET PO (10:14)
[2024-06-30] MEDS: DORZOLAMIDE HCL 2 % OPHTH DROP 1 DROP EYE-BOTH (10:15)
[2024-06-30] MEDS: PSYLLIUM HUSK (WITH SUGAR) 12 GM PACKET PO (10:15)
[2024-06-30] MEDS: timoloL maleate 0.5 % 1 DROP EYE-BOTH (10:15)
[2024-06-30] MEDS: CLOPIDOGREL 75 MG TABLET PO (10:15)
[2024-06-30] MEDS: SODIUM CHLORIDE 0.9 % (FLUSH) 10 ML SYRINGE 5 ML IVF (10:16)
[2024-06-30 12:30] VITALS: BP 174/98; PULSE 71; RESP 20; TEMP 36.8; O2SAT 95
[2024-06-30] MEDS: cefTRIAXone 2 GM in 0.9 % SODIUM CHLORIDE Mini-bag 100 ML IVPB (13:02)
--- NOTE | 2024-06-30 15:16 | PC.NURSE ---
PATIENT AFEBRILE. REPORTS DECREASED APPETITE BUT DENIED FEELING NAUSEATED. ENCOURAGE FREQUENT SMALL MEALS AND INCREASED PROTEIN INTAKE TOLERATED. UP WITH SBA, WALKER AND GAIT BELT IN ROOM AND TO RECLINER. MIDLINE PLACED PER PICC STAT TO RIGHT UPPER ARM. TUBIGRIP APPLIED PRIOR TO DISCHARGE. SALINE LOCK DC'D. REVIEWED DC INSTRUCTIONS WITH PATIENT AND . PATIENT TO RETURN FOR OUTPATIENT ANTIBIOTIC INFUSION 07/01 AT 1300 IN [facility].
== END 2024-06-30 14:40 | disposition home or self-care (01) | DRG 699 ==
LOC: ED 11:14 → MEDSURG 11:38
PROVIDERS: Family Medicine; Admitting Provider Family Medicine; Emergency Provider Internal Medicine; PCP Family Medicine; Visit Provider Family Medicine
DX: T83.511A Infection and inflammatory reaction due to indwelling urethral catheter, initial encounter (principal); Z16.24 Resistance to multiple antibiotics; N39.0 Urinary tract infection, site not specified; B96.20 Unspecified Escherichia coli [E. coli] as the cause of diseases classified elsewhere; B96.1 Klebsiella pneumoniae [K. pneumoniae] as the cause of diseases classified elsewhere; B96.89 Other specified bacterial agents as the cause of diseases classified elsewhere; G20.A1 Parkinson's disease without dyskinesia, without mention of fluctuations; R53.1 Weakness; E78.5 Hyperlipidemia, unspecified; Z86.73 Personal history of transient ischemic attack (TIA), and cerebral infarction without residual deficits; I12.9 Hypertensive chronic kidney disease with stage 1 through stage 4 chronic kidney disease, or unspecified chronic kidney disease; N18.30 Chronic kidney disease, stage 3 unspecified; K21.9 Gastro-esophageal reflux disease without esophagitis; R07.9 Chest pain, unspecified; G31.84 Mild cognitive impairment of uncertain or unknown etiology; R97.20 Elevated prostate specific antigen [PSA]
CPT/HCPCS: 36410; 36415; 51701; 80048; 80053; 81001; 81003; 83605; 84145; 84484; 85025; 87040; 87086; 87186; 93005; 97116; 97161; 97165; 97535; 99283; 99284; 99285; A4221; A9270; C1751; G0378; J0696; J2405; J2543; J7030

== ENCOUNTER 2024-07-05 13:00 | Outpatient (RCR) | payer MEDICARE, BC, SELFPAY ==
[2024-07-01 13:17] VITALS: BP 156/92; PULSE 72; RESP 16; TEMP 36.2; O2SAT 98
[2024-07-01] MEDS: cefTRIAXone 2 GM in 0.9 % SODIUM CHLORIDE Mini-bag 100 ML IVPB (13:32)
[2024-07-02 13:06] VITALS: BP 184/106; PULSE 68; RESP 16; TEMP 35.6; O2SAT 93
[2024-07-02] MEDS: cefTRIAXone 2 GM in 0.9 % SODIUM CHLORIDE Mini-bag 100 ML IVPB (13:38)
[2024-07-02] MEDS: SODIUM CHLORIDE 0.9 % (FLUSH) 10 ML SYRINGE IVF ×2 (13:38→14:12)
[2024-07-03 13:08] VITALS: BP 179/94; PULSE 71; RESP 16; TEMP 36.2; O2SAT 99
[2024-07-03] MEDS: SODIUM CHLORIDE 0.9 % (FLUSH) 10 ML SYRINGE IVF (13:15)
[2024-07-03] MEDS: cefTRIAXone 2 GM in 0.9 % SODIUM CHLORIDE Mini-bag 100 ML IVPB (13:15)
--- NOTE | 2024-07-03 14:17 | PC.NURSE ---
Pt came in for out patient infusion. VS taken; Pt hypertensive per Pt and Pt has been hypertensive since hospital stay and that MD's did not want to put Pt on medications for HTN at this point. other vital signs stable.
[2024-07-04 12:57] VITALS: BP 143/86; PULSE 73; RESP 24; O2SAT 96
[2024-07-04] MEDS: SODIUM CHLORIDE 0.9 % (FLUSH) 10 ML SYRINGE IVF (13:06)
[2024-07-04] MEDS: cefTRIAXone 2 GM in 0.9 % SODIUM CHLORIDE Mini-bag 100 ML IVPB (13:06)
[2024-07-05] MEDS: cefTRIAXone 2 GM in 0.9 % SODIUM CHLORIDE Mini-bag 100 ML IVPB (13:06)
[2024-07-05] MEDS: SODIUM CHLORIDE 0.9 % (FLUSH) 10 ML SYRINGE IVF ×2 (13:06→13:36)
[2024-07-05 13:10] VITALS: BP 156/79; PULSE 73; RESP 18; TEMP 36.8; O2SAT 97
--- NOTE | 2024-07-05 13:29 | PC.NURSE ---
Addendum entered by Estee Vigil RN 07/06/24 09:16: Dr. Tanner's team called and asked that the Hospital team manage any oral abx. Called Dr. Ascencio this morning and she confirmed that the 10 day course of Ceftriaxone completes the therapy for his infection. No oral abx needed. Called and updated Rad's . No further questions. Original Note: Pt present at [facility] for his final day of antibiotics. Called med/surg and spoke with Dr. Ascencio and got a verbal order to remove the Midline Catheter. RN also contacted pt's PCP, Dr. Tanner at [facility] to ask about whether or not he should be on any oral antibiotics. Rad is scheduled to see Dr. Tanner on 07/14/2024 in post-hospital follow-up. That office will call Rad directly with the answer to the oral abx question.
== END 2024-12-28 23:59 | disposition home or self-care (01) ==
LOC: CCIC 13:00
PROVIDERS: PCP Family Medicine; Visit Provider Clinical Nurse Specialist
DX: R78.81 Bacteremia (principal); B96.20 Unspecified Escherichia coli [E. coli] as the cause of diseases classified elsewhere; N39.0 Urinary tract infection, site not specified
CPT/HCPCS: 96365; 99211; G0463; J0696

== ENCOUNTER 2024-09-12 18:47 | Observation (INO) | payer MEDICARE, BC, SELFPAY ==
[2024-09-12] VITALS (19 sets, daily range): BP systolic 135–215; BP diastolic 64–136; PULSE 70–81; RESP 16–18; TEMP 36.9–37; O2SAT 96–99; BMI 29.8
--- NOTE | 2024-09-12 18:57 | CRLHL7_ITS ---
For Patients: As a result of the Century Cures Act, medical imaging exams and procedure reports are released immediately into your electronic medical record. You may view this report before your referring provider. If you have questions, please contact your health care provider. INDICATION: Speech difficulty. TECHNIQUE: Noncontrast CT images of the brain. COMPARISON: CT brain 11/09/2016. FINDINGS: Nlqz-do-iqnppvmi diffuse cerebral volume loss. No mass effect or midline shift. Mitchell-white differentiation is maintained. Chronic infarctions involving the right posterior cerebral artery territory as well as the left cerebellar hemisphere. No acute intracranial hemorrhage or pathologic extra-axial fluid collection. Suggested mild to moderate chronic microvascular ischemic changes. Intracranial atherosclerotic calcifications. Thinning of the ocular lenses. Right scleral band. Calvarium is intact. Paranasal sinuses and mastoid air cells are clear. IMPRESSION: 1. No acute intracranial hemorrhage or mass effect. 2. Chronic infarctions in the right posterior cerebral artery territory and left cerebellar hemisphere. Please note that all CT scans at this facility use dose modulation, iterative reconstruction, and/or weight-based dosing when appropriate to reduce radiation dose to as low as reasonably achievable. Dictated by Bruce Bunch MD @ 09/12/2024 7:41:20 PM (Electronically Signed)
--- NOTE | 2024-09-12 19:09 | CRLHL7_ITS ---
For Patients: As a result of the Century Cures Act, medical imaging exams and procedure reports are released immediately into your electronic medical record. You may view this report before your referring provider. If you have questions, please contact your health care provider. INDICATION: Acute stroke, speech difficulty, numbness, fall. TECHNIQUE: CTA head with contrast bolus tracking, 3D angiographic rendering using maximum intensity projection (MIP) and images permanently archived. FINDINGS: There is scattered intracranial atherosclerotic disease. There is otherwise normal opacification of the intracranial vasculature. There is no large vessel occlusion or significant intracranial stenosis. A 2 millimeter supraclinoid left ICA aneurysm is incidentally noted. IMPRESSION: No acute intracranial abnormality at CTA. Incidental small left ICA aneurysm. We would be happy to manage this at the [facility] neurointerventional clinic if desired. This can be arranged by calling our coordinator at [phone]. Seven Escobar MD Neurointerventional Radiology [facility]: [phone] Please note that all CT scans at this facility use dose modulation, iterative reconstruction, and/or weight-based dosing when appropriate to reduce radiation dose to as low as reasonably achievable. Dictated by Seven Escobar MD @ 09/13/2024 7:13:01 AM (Electronically Signed)
--- NOTE | 2024-09-12 19:09 | CRLHL7_ITS ---
For Patients: As a result of the Century Cures Act, medical imaging exams and procedure reports are released immediately into your electronic medical record. You may view this report before your referring provider. If you have questions, please contact your health care provider. INDICATION: Acute stroke, speech difficulty, numbness, fall. TECHNIQUE: CTA neck with contrast bolus tracking, 3D angiographic rendering using maximum intensity projection (MIP) and images permanently archived. FINDINGS: There is a large atherosclerotic plaque in the proximal right ICA resulting in a severe stenosis, 99 percent by NASCET. There is adaptive narrowing of the remaining portion of the vessel (string sign). A left carotid stent is in place. The device is patent. The left vertebral artery is occluded proximally. There is a severe stenosis at the origin of the right vertebral artery. Degenerative changes are incidentally noted in the cervical spine. IMPRESSION: 1. 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 2. Patent left carotid stent. 3. Proximal left vertebral artery occlusion. 4. Severe right vertebral artery origin stenosis. Please note that all CT scans at this facility use dose modulation, iterative reconstruction, and/or weight-based dosing when appropriate to reduce radiation dose to as low as reasonably achievable. Dictated by Seven Escobar MD @ 09/13/2024 7:16:23 AM (Electronically Signed)
--- NOTE | 2024-09-12 19:12 | ED_ITS ---
HPI - General Adult General Chief complaint: Neuro Symptoms/Altered Deficit Stated complaint: R arm tingling, face numbness, difficulty speaking Time Seen by Provider: 09/12/24 19:11 Source: patient and family Mode of arrival: ambulatory Limitations: no limitations History of Present Illness HPI narrative: Patient is an 84-year-old male presenting to the ER with focal neurologic deficits. Patient was ice fishing this weekend and came home several hours ago. Per his he has been sitting in his chair for most of the day and when he went to get up he stated that he was having some numbness on the right side of the face, tongue felt swollen and speech was disturbed. He also complained of tingling of the right hand. He states that the tongue feels normal now, still feels a funny sensation of the right cheek and right hand. All this started approximately 30 minutes ago. Patient is not feel dizzy or lightheaded. Denies any vertiginous symptoms, nausea or vomiting. Does not have a headache. Left carotid stenting one month ago through [facility]. Related Data Home Medications ?Medication ?Instructions ?Recorded ?Confirmed atorvastatin 10 mg tablet 10 mg PO QHS 03/17/24 07/01/24 cholecalciferol (vitamin D3) 50 50 mcg PO DAILY 03/17/24 07/01/24 mcg (2,000 unit) capsule clopidogrel 75 mg tablet 75 mg PO DAILY 03/17/24 07/01/24 finasteride 5 mg tablet (Proscar) 5 mg PO DAILY 03/17/24 07/01/24 tamsulosin 0.4 mg capsule (Flomax) 0.8 mg PO QPM 03/17/24 07/01/24 dorzolamide 22.3 mg-timolol 6.8 1 drp ophthalmic (eye) BID 03/21/24 07/01/24 mg/mL eye drops carbidopa 25 mg-levodopa 100 mg 1 tab PO .TIDAC 06/26/24 07/01/24 tablet Allergies Allergy/AdvReac Type Severity Reaction Status Date / Time amlodipine AdvReac Mild Verified 09/12/24 19:33 labetalol AdvReac Mild Dizziness Verified 09/12/24 19:33 omeprazole AdvReac Mild Rash Verified 09/12/24 19:33 Review of Systems Status of ROS: Reports: 10 or more systems reviewed and unremarkable except as noted in History and below PFSH PFSH Medical History Weakness ?R53.1 - Weakness (ICD-10) Parkinson's disease (tremor, stiffness, slow motion, unstable posture) ?G20.A1 - Parkinson's disease without dyskinesia, without mention of fluctuations (ICD-10) Acute kidney injury superimposed on chronic kidney disease ?N17.9 - Acute kidney failure, unspecified (ICD-10) ?N18.9 - Chronic kidney disease, unspecified (ICD-10) Sensorineural hearing loss ?H90.5 - Unspecified sensorineural hearing loss (ICD-10) Elevated PSA ?R97.20 - Elevated prostate specific antigen [PSA] (ICD-10) Hyperlipidemia ?E78.5 - Hyperlipidemia, unspecified (ICD-10) Hypertension ?I10 - Essential (primary) hypertension (ICD-10) Occipital stroke ?I63.9 - Cerebral infarction, unspecified (ICD-10) Urinary retention ?R33.9 - Retention of urine, unspecified (ICD-10) Tremor ?R25.1 - Tremor, unspecified (ICD-10) Surgical History H/O cataract extraction ?Z98.49 - Cataract extraction status, unspecified eye (ICD-10) History of arthroplasty of left knee ?Z96.652 - Presence of left artificial knee joint (ICD-10) S/P arthroscopy of left shoulder ?Z98.890 - Other specified postprocedural states (ICD-10) Family History Other Parkinsons disease Social History Narrative: 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 Code status is full. He does not drink. Remote history of smoking. What is your current living situation?: I presently have a place to live Problems where you live: no known problems Problems where you live details: N/A In the past 12 months, utilities in danger of being shut off: no In past 12 months, lack of transportation kept you from medical appts, meetings, work, or getting things needed for daily living: no In the past 12 mos, have been you worried that your food would run out before you had money to buy more?: never true In the past 12 mos, the food you bought just didn't last and you didn't have money to buy more?: never true Highest level of school completed/degree received: high school graduate Smoking Status: Former smoker Do you use any of these nicotine containing products: None Second hand tobacco smoke exposure: No How often do you have a drink containing alcohol: never AUDIT-C Alcohol total score: 0 Non-prescribed substance use: denies use Caffeine: Yes How often does anyone, including family, friends and others, physically hurt you : never How often does anyone, including family, friends and others, insult or talk down to you: never How often does anyone, including family, friends and others, threaten you with harm: never How often does anyone, including family, friends and others, scream or curse at you: never service: No Exam Narrative: Exam Narrative: Well-nourished well-developed patient in no acute distress. Alert and oriented x3. Answers questions appropriately. Mood and affect are appropriate. Thoughts are goal oriented and rational. No tangential or magical thinking noted. Patient speaks in full sentences without needing to catch his breath. Speech is not slurred or pressured. He has no word-finding difficulty. HEENT: Normocephalic. No facial asymmetry noted. Extraocular muscles are intact. Conjunctivae are moist without any icterus noted. Moist mucous membranes. Posterior pharynx is normal. Neck is soft . Cardiovascular: Heart is regular rate and rhythm S1 and S2 are present without any murmurs. Lungs: Clear to auscultation bilaterally no wheezes rhonchi or rales are appreciated. Patient takes deep breaths without any discomfort. Abdomen: Soft and nontender nondistended with normal bowel sounds. Extremities: Bilateral lower extremities are without edema. Skin: Well perfused. Strength is 5/5 of the upper and lower extremities, both distal and proximal muscle groups. There is no pronator drift present. Hand statistical programmer is normal and symmetric. Cranial nerves 3-12 are normal. Nboyyr-jy-ipab is normal. Mhkj-io-umbs is normal. There is no nystagmus either horizontally or vertically. Patient sits up in bed without difficulty. Const: Vital Signs, click to edit/add: Vital Signs - 24 hr 09/12/24 18:53 09/12/24 19:15 09/12/24 19:31 Temperature 98.4 F Pulse Rate 81 77 Pulse Rate [Right Pulse Oximeter] 81 Respiratory Rate 18 Blood Pressure Blood Pressure [Ri ght Upper Arm] 201/101 H Pulse Oximetry 97 98 98 Oxygen Delivery Me thod Room Air 09/12/24 19:33 09/12/24 19:43 09/12/24 19:47 Temperature Pulse Rate 77 74 Pulse Rate [Right Pulse Oximeter] Respiratory Rate 16 Blood Pressure 157/89 H 209/118 H Blood Pressure [Ri ght Upper Arm] Pulse Oximetry 98 96 Oxygen Delivery Me thod 09/12/24 19:55 09/12/24 19:56 09/12/24 20:00 Temperature Pulse Rate 75 77 74 Pulse Rate [Right Pulse Oximeter] Respiratory Rate Blood Pressure 198/99 H Blood Pressure [Ri ght Upper Arm] Pulse Oximetry 99 98 98 Oxygen Delivery Me thod 09/12/24 20:02 09/12/24 20:11 09/12/24 20:12 Temperature Pulse Rate 74 72 Pulse Rate [Right Pulse Oximeter] Respiratory Rate Blood Pressure 206/104 H 215/116 H Blood Pressure [Ri ght Upper Arm] Pulse Oximetry 98 97 98 Oxygen Delivery Me thod 09/12/24 20:15 Temperature Pulse Rate 72 Pulse Rate [Right Pulse Oximeter] Respiratory Rate Blood Pressure Blood Pressure [Ri ght Upper Arm] Pulse Oximetry 98 Oxygen Delivery Me thod Course Course ED Course: Upon arrival patient was met immediately in the exam room where physical exam was done. Nursing staff paged stroke code to neurologist at [facility]. Patient proceeded to head CT. Head CT did not show any acute findings. Preliminary Neck and head CTA shows a critical right cervical internal carotid artery stenosis - greater than 95%, as well as patent stenting of the distal left common carotid and proximal left internal carotid arteries. 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 Findings were discussed with Dr. Tadeo - he recommends full-dose aspirin tonight and admission for observation. Stroke team will consult in the morning. We discussed patient's elevated blood pressure which at the time was 209/118. Recommendation per Stroke Neurology is to not intervene at this time. EKG, read by me, shows a sinus rhythm, pulse 74. CBC shows mild anemia with a hemoglobin of 12, normal platelet count normal white cell count. Normal chemistries. Troponin pending at this time. Discussed patient with Dr. Amin who will accept the patient for admission. Vital Signs Vital signs: Initial Vital Signs Temperature 98.4 F 09/12/24 18:53 Temperature Source Temporal Artery Scan 09/12/24 18:53 Pulse Rate 81 09/12/24 18:53 Pulse Rhythm Regular 09/12/24 18:53 Respiratory Rate 18 09/12/24 18:53 Blood Pressure 201/101 H 09/12/24 18:53 Blood Pressure Mean 134 H 09/12/24 18:53 Blood Pressure Position Sitting 09/12/24 18:53 Pulse Oximetry 97 09/12/24 18:53 Oxygen Delivery Method Room Air 09/12/24 18:53 Vital Signs Temperature 98.4 F 09/12/24 18:53 Pulse Rate 81 09/12/24 18:53 Respiratory Rate 18 09/12/24 18:53 Blood Pressure 201/101 H 09/12/24 18:53 Pulse Oximetry 97 09/12/24 18:53 Oxygen Delivery Method Room Air 09/12/24 18:53 Temperature 98.4 F 09/12/24 18:53 Pulse Rate 72 09/12/24 20:15 Respiratory Rate 16 09/12/24 19:33 Blood Pressure 215/116 H 09/12/24 20:12 Pulse Oximetry 98 09/12/24 20:15 Oxygen Delivery Method Room Air 09/12/24 18:53 Medical Decision Making [facility] Narrative Medical decision making narrative: 84-year-old male presenting with stroke-like symptoms, now resolved - consistent with transient ischemic attack. Plan per above. Lab Data Lab results reviewed: Yes I reviewed the patient's lab results Labs: Lab Results 09/12/24 Range/Units 19:21 WBC 6.41 (4.50-11.00) K/uL RBC 4.18 L (4.30-5.90) m/uL Hgb 12.0 L (13.5-17.5) gm/dL Hct 36.9 L (37.0-53.0) % MCV 88 (80-100) fL MCH 29 (26-34) pg MCHC 33 (32-36) gm/dL RDW Coeff of Rossy 13.8 (11.5-15.5) % Plt Count 186 (140-440) K/uL Neut % (Auto) 55.1 (42.0-72.0) % Lymph % (Auto) 29.6 (20-44) % [place] % (Auto) 10.5 (0.0-11.0) % Eos % (Auto) 4.1 (0.0-7.0) % Baso % (Auto) 0.5 (0.0-3.0) % Neut # (Auto) 3.54 (1.7-7.0) K/uL Lymph # (Auto) 1.90 (0.90-2.90) K/uL [place] # (Auto) 0.70 (0.00-0.90) K/UL Eos # (Auto) 0.26 (0.00-0.50) K/uL Baso # (Auto) 0.03 (0.00-0.30) K/uL Abs Immat Gran (auto) 0.01 (0.00-0.30) K/uL Imm/Tot Granulo (auto) 0.2 % Sodium 137 (135-149) mmol/L Potassium 3.8 (3.6-5.1) mmol/L Chloride 106 (96-114) mmol/L Carbon Dioxide 21 (20-32) mmol/L Anion Gap 10 (7-15) mEq/L BUN 20 (7-30) mg/dL Creatinine 1.2 (0.5-1.5) mg/dL Estimated Creat Clear 52.33 Estimated GFR 59 ml/min Glucose 97 (60-115) mg/dL Calcium 8.7 (8.4-10.6) mg/dL C-Reactive Protein < 0.5 L (0.5-1.0) mg/dL POC Creatinine 1.3 (0.6-1.3) mg/dl Imaging Data CT scan - head: Attestation: I have reviewed the pertinent imaging results. Radiologist's impression: Noncontrast CT images of the brain. COMPARISON: CT brain 11/09/2016. FINDINGS: Cmpq-mi-rkdywjdg diffuse cerebral volume loss. No mass effect or midline shift. Mitchell-white differentiation is maintained. Chronic infarctions involving the right posterior cerebral artery territory as well as the left cerebellar hemisphere. No acute intracranial hemorrhage or pathologic extra-axial fluid collection. Suggested mild to moderate chronic microvascular ischemic changes. Intracranial atherosclerotic calcifications. Thinning of the ocular lenses. Right scleral band. Calvarium is intact. Paranasal sinuses and mastoid air cells are clear. IMPRESSION: 1. No acute intracranial hemorrhage or mass effect. 2. Chronic infarctions in the right posterior cerebral artery territory and left cerebellar hemisphere. Head and neck CTA: Attestation: I have reviewed the pertinent imaging results. Radiologist's impression: CTA head: No proximal intracranial large vessel occlusion. Posteriorly directed 2 mm distal left supraclinoid internal carotid artery aneurysm (series 7 image 276). Recommend consultation with the [facility] neurointerventional radiology service for further management. Call [phone] for appointments. CTA neck: Critical (greater than 95 percent) proximal right cervical internal carotid artery stenosis associated with decreased luminal caliber distally. Patent stenting of the distal left common carotid and proximal left internal carotid arteries. Occluded left vertebral artery origin with reconstitution of the distal V2 through V4 segments. Discharge Plan Discharge Clinical Impression: TIA (transient ischemic attack) Patient Disposition: Admitted As Observation Condition: Stable Prescriptions: No Action atorvastatin 10 mg tablet 10 mg PO QHS clopidogrel 75 mg tablet 75 mg PO DAILY cholecalciferol (vitamin D3) 50 mcg (2,000 unit) capsule 50 mcg PO DAILY finasteride [Proscar] 5 mg tablet 5 mg PO DAILY tamsulosin [Flomax] 0.4 mg capsule 0.8 mg PO QPM dorzolamide-timolol 22.3-6.8 mg/mL drops 1 drp ophthalmic (eye) BID Patient Comments: BOTH EYES carbidopa-levodopa 25-100 mg Tablet 1 tab PO .TIDAC Follow Up/Referrals: Kemar Tanner MD [Primary Care Provider] -
[2024-09-12 19:26] LABS: Creatinine, Point-of-Care* 1.3 mg/dl (0.6-1.3)
[2024-09-12 19:47] LABS: Basophils Absolute Auto 0.03 K/uL (0.00-0.30); Basophils Percent Auto 0.5 % (0.0-3.0); Eosinophils Absolute Auto 0.26 K/uL (0.00-0.50); Eosinophils Percent Auto 4.1 % (0.0-7.0); Hematocrit 36.9 % (37.0-53.0); Immature Granulocytes Abs Auto 0.01 K/uL (0.00-0.30); Immature Granulocytes Pct Auto 0.2 %; Lymphocytes Percent Auto 29.6 % (20-44); Mean Corpuscular HGB Conc 33 gm/dL (32-36); Mean Corpuscular Hemoglobin 29 pg (26-34); Mean Corpuscular Volume 88 fL (80-100); Monocytes Percent Auto 10.5 % (0.0-11.0); Neutrophils Absolute Auto 3.54 K/uL (1.7-7.0); Neutrophils Percent Auto 55.1 % (42.0-72.0); Platelet Count* 186 K/uL (140-440); RDW Coefficient of Variation % 13.8 % (11.5-15.5); Red Blood Count 4.18 m/uL (4.30-5.90); White Blood Count* 6.41 K/uL (4.50-11.00)
[2024-09-12 20:02] LABS: Chloride* 106 mmol/L (96-114); Potassium* 3.8 mmol/L (3.6-5.1); Sodium* 137 mmol/L (135-149)
[2024-09-12 20:04] LABS: Creatinine* 1.2 mg/dL (0.5-1.5); Est. Creatinine Clearance* 52.33; Estimated Glomerular Filt Rate 59 ml/min
[2024-09-12 20:05] LABS: Anion Gap 10 mEq/L (7-15); Blood Urea Nitrogen* 20 mg/dL (7-30); Calcium* 8.7 mg/dL (8.4-10.6); Carbon Dioxide* 21 mmol/L (20-32); Glucose* 97 mg/dL (60-115)
[2024-09-12 20:09] LABS: C Reactive Protein* < 0.5 mg/dL (0.5-1.0)
[2024-09-12 20:10] LABS: Slide Review Reflex No
[2024-09-12 20:26] LABS: Bilirubin Direct* 0.3 mg/dL (0.0-0.5); Bilirubin Total* 0.9 mg/dL (0.1-1.5)
[2024-09-12 20:27] LABS: Alanine Aminotransferase* 6 U/L (4-50); Alkaline Phosphatase* 85 U/L (40-150); Aspartate Amino Transferase* 17 U/L (12-35); Magnesium* 1.9 mg/dL (1.5-2.6)
[2024-09-12] MEDS: ASPIRIN 81 MG TAB.CHEW 324 MG PO (20:31)
[2024-09-12 21:00] LABS: Troponin I* < 0.01 ng/mL (0.01-0.04)
[2024-09-12 21:05] LABS: PCR FLU A Negative PCR FLU A (Negative); PCR FLU B Negative PCR FLU B (Negative); SARS PCR* Negative SARS-CoV-2 (Negative)
--- NOTE | 2024-09-12 21:21 | PM.IMHP1 ---
Hospitalist- H&P: HPI History of Present Illness Date Seen: 09/12/24 Chief complaint: R arm tingling, face numbness, difficulty speaking Narrative: ADMISSION HISTORY AND PHYSICAL - HOSPITALIST Chief Complaint: Right sided facial tingling, dysarthria, confusion HPI: This is an 84-year-old with history of CVA, HTN, recent carotid artery stent, Parkinson's, CKD and chronic urinary catheterization presents with acute neuro changes this evening. Symptoms started at approximately 6:30 p.m.. He was cleaning up some tackle from a day's worth of fishing - he walked into the living room where his was watching the [employer] game and said that his face felt weird, his hand felt weird and she noticed that he was talking with what sounded like cotton in his mouth. He seemed a little confused. She thought it seemed like what had happened this fall when he was hunting and had a TIA and ultimately a carotid stent placed. That was one month ago and symptoms were on the left. He has been doing great postoperatively. On the drive in to the ED - his symptoms were improving rapidly. ER COURSE: Stroke Code with [facility] - CT completed. Full aspirin given. As his symptoms were rapidly waning no lytic therapy indicated. CODE STATUS: DNI/DNR but specifically would like lytics and and if responded would transfer to neuro ICU at [facility]. There were no response from lytics and there was dense changes, making him comfortable would be appropriate. EMERGENCY CONTACT PLAN: Liz Aburto Rel To [facility] I've updated the PFSH, medications and allergies in the Expanse tabs. INVESTIGATIONS: LABS/MICRO/ECG/IMAGING Blood pressure has been consistently elevated since arrival. Currently 211/136 CBC is unremarkable. Electrolytes are unremarkable, chronic kidney disease is stable with a creatinine 1.2 and a GFR 59 Troponin and CRP are unremarkable Respiratory screen negative EKG reviewed: Sinus rhythm with premature supraventricular complexes. Heart rate 74. CTA neck: Critical (greater than 95 percent) proximal right cervical internal carotid artery stenosis associated with decreased luminal caliber distally. Patent stenting of the distal left common carotid and proximal left internal carotid arteries. Occluded left vertebral artery origin with reconstitution of the distal V2 through V4 segments. Severe right vertebral artery origin stenosis. CT HEAD IMPRESSION: 1. No acute intracranial hemorrhage or mass effect. 2. Chronic infarctions in the right posterior cerebral artery territory and left cerebellar hemisphere. REVIEW OF SYSTEMS: 12-point ROS completed with patient and negative unless otherwise stated in HPI or below. PHYSICAL EXAM: CONSTITUTIONAL: Aware. Cooperating and communicating. Significant tremor in the left extremity which is not new. GENERAL: Well-developed and above ideal body weight, in no respiratory distress. VITAL SIGNS: see record. HEENT: Sclerae are anicteric. No petechiae. CARDIAC: rhythm is regular. There is no S3 or rub. No harsh murmurs. Extremities show trace edema with symmetrical pulses. PULM: good air entry with no wheeze. NEURO: Speech is fluent. 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 movement and strength normal in lower extremitis. SKIN: No rashes, petechiae, concerning changes PSYCHIATRIC: Euthymic. ADMIT TO MEDSURG: FLOOR CARE DVT: DAPT GI: PO intake Time spent: Today I spent 75 minutes seeing the patient, discussing the patient with ER staff, reviewing Expanse and EPIC notes/diagnostics, discussing the care plan with our care time that includes social work, PT/OT, pharmacy, RT, halfway and documenting my impressions and plan in the medical record. [facility] Medical History (Updated 09/12/24 @ 23:43 by Nancy Amin MD) Occlusion and stenosis of bilateral carotid arteries ?I65.23 - Occlusion and stenosis of bilateral carotid arteries (ICD-10) Acute pyelonephritis ?N10 - Acute pyelonephritis (ICD-10) Bladder spasms ?N32.89 - Other specified disorders of bladder (ICD-10) Hyponatremia ?E87.1 - Hypo-osmolality and hyponatremia (ICD-10) Hypokalemia ?E87.6 - Hypokalemia (ICD-10) Breast pain, left ?N64.4 - Mastodynia (ICD-10) Urinary tract infection ?N39.0 - Urinary tract infection, site not specified (ICD-10) E coli bacteremia ?R78.81 - Bacteremia (ICD-10) ?B96.20 - Unspecified Escherichia coli [E. coli] as the cause of diseases classified elsewhere (ICD-10) Weakness ?R53.1 - Weakness (ICD-10) Parkinson's disease (tremor, stiffness, slow motion, unstable posture) ?G20.A1 - Parkinson's disease without dyskinesia, without mention of fluctuations (ICD-10) Acute kidney injury superimposed on chronic kidney disease ?N17.9 - Acute kidney failure, unspecified (ICD-10) ?N18.9 - Chronic kidney disease, unspecified (ICD-10) Sensorineural hearing loss ?H90.5 - Unspecified sensorineural hearing loss (ICD-10) Elevated PSA ?R97.20 - Elevated prostate specific antigen [PSA] (ICD-10) Hyperlipidemia ?E78.5 - Hyperlipidemia, unspecified (ICD-10) Hypertension ?I10 - Essential (primary) hypertension (ICD-10) Occipital stroke ?I63.9 - Cerebral infarction, unspecified (ICD-10) Urinary retention ?R33.9 - Retention of urine, unspecified (ICD-10) Tremor ?R25.1 - Tremor, unspecified (ICD-10) Surgical History (Updated 09/12/24 @ 21:40 by Nancy Amin MD) History of transcarotid artery revascularization (TCAR) ?Z98.62 - Peripheral vascular angioplasty status (ICD-10) H/O cataract extraction ?Z98.49 - Cataract extraction status, unspecified eye (ICD-10) History of arthroplasty of left knee ?Z96.652 - Presence of left artificial knee joint (ICD-10) S/P arthroscopy of left shoulder ?Z98.890 - Other specified postprocedural states (ICD-10) Family History Other Parkinsons disease Social History Narrative: 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 Code status is full. He does not drink. Remote history of smoking. What is your current living situation?: I presently have a place to live Problems where you live: no known problems Problems where you live details: N/A In the past 12 months, utilities in danger of being shut off: no In past 12 months, lack of transportation kept you from medical appts, meetings, work, or getting things needed for daily living: no In the past 12 mos, have been you worried that your food would run out before you had money to buy more?: never true In the past 12 mos, the food you bought just didn't last and you didn't have money to buy more?: never true Highest level of school completed/degree received: high school graduate Smoking Status: Former smoker Do you use any of these nicotine containing products: None Second hand tobacco smoke exposure: No How often do you have a drink containing alcohol: never AUDIT-C Alcohol total score: 0 Non-prescribed substance use: denies use Caffeine: Yes How often does anyone, including family, friends and others, physically hurt you: never How often does anyone, including family, friends and others, insult or talk down to you: never How often does anyone, including family, friends and others, threaten you with harm: never How often does anyone, including family, friends and others, scream or curse at you: never service: No Meds Home Medications and Allergies Home Medications ?Medication ?Instructions ?Recorded ?Confirmed ?Type atorvastatin 10 mg tablet 10 mg PO QHS 03/17/24 09/12/24 History cholecalciferol (vitamin D3) 50 50 mcg PO DAILY 03/17/24 09/12/24 History mcg (2,000 unit) capsule clopidogrel 75 mg tablet 75 mg PO DAILY 03/17/24 09/12/24 History finasteride 5 mg tablet (Proscar) 5 mg PO DAILY 03/17/24 09/12/24 History tamsulosin 0.4 mg capsule (Flomax) 0.8 mg PO QPM 03/17/24 09/12/24 History dorzolamide 22.3 mg-timolol 6.8 1 drp ophthalmic (eye) BID 03/21/24 09/12/24 History mg/mL eye drops carbidopa 25 mg-levodopa 100 mg 1 tab PO .TIDAC 06/26/24 09/12/24 History tablet olmesartan 20 mg tablet 10 mg PO DAILY 09/12/24 09/12/24 History Allergies Allergy/AdvReac Type Severity Reaction Status Date / Time amlodipine AdvReac Mild Verified 09/12/24 19:33 labetalol AdvReac Mild Dizziness Verified 09/12/24 19:33 omeprazole AdvReac Mild Rash Verified 09/12/24 19:33 Exam Const: Vital Signs, click to edit/add: Vital Signs - 24 hr 09/12/24 18:53 09/12/24 19:15 09/12/24 19:31 Temperature 98.4 F Pulse Rate 81 77 Pulse Rate [Right Pulse Oximeter] 81 Respiratory Rate 18 Blood Pressure Blood Pressure [Ri ght Upper Arm] 201/101 H Pulse Oximetry 97 98 98 Oxygen Delivery Me thod Room Air 09/12/24 19:33 09/12/24 19:43 09/12/24 19:47 Temperature Pulse Rate 77 74 Pulse Rate [Right Pulse Oximeter] Respiratory Rate 16 Blood Pressure 157/89 H 209/118 H Blood Pressure [Ri ght Upper Arm] Pulse Oximetry 98 96 Oxygen Delivery Me thod 09/12/24 19:55 09/12/24 19:56 09/12/24 20:00 Temperature Pulse Rate 75 77 74 Pulse Rate [Right Pulse Oximeter] Respiratory Rate Blood Pressure 198/99 H Blood Pressure [Ri ght Upper Arm] Pulse Oximetry 99 98 98 Oxygen Delivery Me thod 09/12/24 20:02 09/12/24 20:11 09/12/24 20:12 Temperature Pulse Rate 74 72 Pulse Rate [Right Pulse Oximeter] Respiratory Rate Blood Pressure 206/104 H 215/116 H Blood Pressure [Ri ght Upper Arm] Pulse Oximetry 98 97 98 Oxygen Delivery Me thod 09/12/24 20:15 09/12/24 20:30 09/12/24 20:32 Temperature Pulse Rate 72 72 71 Pulse Rate [Right Pulse Oximeter] Respiratory Rate Blood Pressure 135/64 Blood Pressure [Ri ght Upper Arm] Pulse Oximetry 98 98 98 Oxygen Delivery Me thod 09/12/24 20:45 09/12/24 20:49 Temperature Pulse Rate 73 Pulse Rate [Right Pulse Oximeter] Respiratory Rate Blood Pressure 101/90 H Blood Pressure [Ri ght Upper Arm] Pulse Oximetry 98 Oxygen Delivery Me thod Hospitalist - H&P: Result Labs Labs: Short CBC 09/12/24 Range/Units 19:21 WBC 6.41 (4.50-11.00) K/uL Hgb 12.0 L (13.5-17.5) gm/dL Hct 36.9 L (37.0-53.0) % Plt Count 186 (140-440) K/uL BMP 09/12/24 19:21 Sodium 137 Potassium 3.8 Chloride 106 Carbon Dioxide 21 BUN 20 Creatinine 1.2 Glucose 97 Calcium 8.7 Cardiac Enzymes 09/12/24 Range/Units 19:21 Troponin I < 0.01 L (0.01-0.04) ng/mL Liver Function 09/12/24 Range/Units 19:21 Total Bilirubin 0.9 (0.1-1.5) mg/dL Direct Bilirubin 0.3 (0.0-0.5) mg/dL AST 17 (12-35) U/L ALT 6 (4-50) U/L Alkaline Phosphatase 85 (40-150) U/L Albumin 4.0 (3.3-5.0) g/dL Assessment and Plan Assessment and plan (1) TIA (transient ischemic attack): Problem comment: -right sided symptoms briefly from 630-7 pm: facial tingling, thick feeling of tongue, garbled speech, right arm/hand tingling/heaviness. Resolved on his ride into the ED; nearly complete resolution (only mild facial tingling and hand tingling) by arrival to the floor - Neuro Stroke Code in ED - neuro will follow; full dose aspirin, continue plavix, permissive htn tonight. (No echo in [facility] since 2017 - first stroke - maybe one in [place] this fall?) -bedside swallow; HOB 30 degrees, blood pressure 220/110 or less, 185/110 if lytics are needed -discussed with Rad, and doc daughter JF - no intubation or CPR - ok to do trial of lytic if indicated and if it works - transfer to [facility] neuro ICU - if no response or little response - comfort cares are desired. Status: Acute (2) History of transcarotid artery revascularization (TCAR): Problem comment: 08/13/24 - LEFT Left (TCAR procedure) transcarotid angioplasty and stenting utilizing 10 x 40 mm ENROUTE transcarotid stent and cerebral protection utilizing reversal of flow. Status: Acute (3) Occlusion and stenosis of bilateral carotid arteries: Problem comment: s/p left stent placement 08/13/24 Status: Acute (4) History of CVA with residual deficit: Problem comment: 2016. Caused left visual field cut: Left homonymous hemianopsia Status: Acute (5) Parkinson's disease (tremor, stiffness, slow motion, unstable posture): Problem comment: Patient diagnosed with Parkinson's in March 2024 based on worsening tremor. Treated with Sinemet which is helpful. Neurology consult July 14 2024 - printed for office - continue home dosing of Sinemet Status: Chronic (6) Chronic kidney disease: Problem comment: CKD stage 3 with a baseline creatinine of 1.3, stable Status: Chronic (7) Indwelling urethral catheter present: Problem comment: -hx of urinary retention; long standing العلي placement; last changed on 09/02 Status: Acute (8) Cognitive impairment: Problem comment: 06/28/24 MOCA Status: Suspected (9) Hypertension: Problem comment: holding home meds - allowing permissive HTN prn hydralazine for >220/110 Status: Acute (10) GERD (gastroesophageal reflux disease): Problem comment: Not currently taking PPI due to adverse reaction Status: Chronic
[2024-09-12] MEDS: SODIUM CHLORIDE 0.9 % (FLUSH) 10 ML SYRINGE 5 ML IVF ×2 (23:10→23:11)
[2024-09-12] MEDS: CARBIDOPA-LEVODOPA 25-100 TABLET 2 TAB PO (23:10)
[2024-09-12] MEDS: ATORVASTATIN 10 MG TABLET PO (23:11)
[2024-09-12] MEDS: DORZOLAMIDE/TIMOLOL 2-0.5% OPHTH 1 DROP EYE-BOTH (23:28)
[2024-09-13] VITALS (13 sets, daily range): BP systolic 144–192; BP diastolic 84–105; PULSE 58–75; RESP 16–18; TEMP 36.7; O2SAT 97–98
[2024-09-13] MEDS: 0.9 % SODIUM CHLORIDE 1000 ml 1,000 ML 500 ML IV (01:28)
[2024-09-13 06:40] LABS: Hemoglobin* 11.2 gm/dL (13.5-17.5); Mean Corpuscular HGB Conc 32 gm/dL (32-36); Mean Corpuscular Hemoglobin 28 pg (26-34); Mean Corpuscular Volume 88 fL (80-100); Platelet Count* 165 K/uL (140-440); Red Blood Count 3.96 m/uL (4.30-5.90); White Blood Count* 5.29 K/uL (4.50-11.00)
[2024-09-13 06:48] LABS: Slide Review Reflex No
[2024-09-13 06:59] LABS: Chloride* 109 mmol/L (96-114)
[2024-09-13 07:00] LABS: Potassium* 3.6 mmol/L (3.6-5.1); Sodium* 139 mmol/L (135-149)
--- NOTE | 2024-09-13 07:00 | PC.NURSE ---
Pt is alert and oriented x3. Pt denies pain, chest pain, headache, SOB, and N/V. Pt has bilateral equal strength in extremities, facial movements are controlled and symmetrical. Pt?s catheter is patent and draining, up SBA, and slept throughout most of night. Pt received 1000 ml bolus per bp parameters set by MD Amin to maintain essential hypertension. MD Best updated. Pt tolerated well. ?
[2024-09-13 07:02] LABS: Anion Gap 9 mEq/L (7-15); Carbon Dioxide* 21 mmol/L (20-32); Creatinine* 1.1 mg/dL (0.5-1.5); Est. Creatinine Clearance* 57.08; Estimated Glomerular Filt Rate 66 ml/min
[2024-09-13 07:03] LABS: Blood Urea Nitrogen* 17 mg/dL (7-30); Calcium* 8.5 mg/dL (8.4-10.6); Glucose* 99 mg/dL (60-115)
[2024-09-13] MEDS: SODIUM CHLORIDE 0.9 % (FLUSH) 10 ML SYRINGE 5 ML IVF (09:17)
[2024-09-13] MEDS: DORZOLAMIDE/TIMOLOL 2-0.5% OPHTH 1 DROP EYE-BOTH (09:17)
[2024-09-13] MEDS: CARBIDOPA-LEVODOPA 25-100 TABLET 1 TAB PO ×2 (09:17→13:25)
[2024-09-13] MEDS: CLOPIDOGREL 75 MG TABLET PO (09:17)
[2024-09-13] MEDS: ASPIRIN EC 325 MG TABLET PO (09:17)
--- NOTE | 2024-09-13 10:42 | CRLHL7_ITS ---
For Patients: As a result of the Century Cures Act, medical imaging exams and procedure reports are released immediately into your electronic medical record. You may view this report before your referring provider. If you have questions, please contact your health care provider. INDICATION: Cerebrovascular symptoms. TECHNIQUE: Brain MRI without contrast. COMPARISON: Head CT from 09/12/2024. FINDINGS: No evidence of acute ischemia. Relatively large chronic transcortical infarct within the right parasagittal occipital lobe/posterior mesial temporal lobe. Multiple bilateral chronic cerebellar infarcts. Curvilinear susceptibility artifact within the left high parietal sulcus, compatible with chronic subarachnoid hemosiderin deposition. No intracranial blood products elsewhere. Patchy FLAIR hyperintensities within the deep/periventricular supratentorial white matter and brainstem, typical for chronic microvascular ischemic change. Generalized parenchymal volume loss. No hydrocephalus or extra-axial collections. The pituitary gland, parasellar structures and optic chiasm are normal. All the major intracranial vascular structures demonstrate normal flow-related signal. The orbital contents are normal. No calvarial or skull base marrow replacing process. No obstructive sinus disease. No extracranial soft tissue findings. IMPRESSION: 1. No acute infarction or other acute intracranial pathology. 2. Relatively large chronic infarct right occipital lobe/posterior mesial temporal lobe. (Right MASH PREPARATORY OPERATOR territory). Multiple chronic infarcts within the bilateral cerebellar hemispheres. 3. Chronic microvascular ischemic changes and generalized parenchymal volume loss. 4. Chronic subarachnoid hemosiderin deposition within the left high parietal lobe, nonspecific but could be due to amyloid angiopathy. Dictated by Mark Soriano MD @ 09/13/2024 12:41:00 PM (Electronically Signed)
--- NOTE | 2024-09-13 11:50 | NUTR.NU ---
MILO with diet education related to heart healthy diet. Patient admitted for concern for stroke, had recent CVA. Past medical history includes but not limited to occipital stroke, hyperlipidemia, hypertension, CKD and parkinson's disease. Current weight 232lbs 4oz; height 6ft 2in; BMI 29.8 kg/m2. Weight has been stable within the last 180 days. Current diet is Heart Healthy. Patient is also Gluten Free. MILO visited with patient's and designated caregiver, Liz, and offered diet education related to diet order. She declined at this time, reporting patient has had multiple educations on this in the past. No other concerns of questions. Patient to discharge later today.
--- NOTE | 2024-09-13 13:46 | P.DS_ITS ---
DS: Providers Provider Date Seen: 09/13/24 Date of admission: 09/12/24 20:57 Primary care physician: Kemar Tanner MD Admitting Clinician: Nancy Amin MD Consults: PT and OT Attending Physician on discharge: Yanira Ascencio MD Date of Discharge: 09/13/24 DS: Diagnosis Discharge Diagnosis (1) TIA (transient ischemic attack): Status: Acute Problem details: - R sided symptoms (briefly from [id number] on 09/12: facial tingling, thick feeling of tongue, garbled speech, right arm/hand tingling/heaviness. Resolved on his ride into the ED; nearly complete resolution (only mild facial tingling and hand tingling) by arrival to the floor - MRI on 09/13/24 reassuring - reviewed by phone with Dr. 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 Diehl by phone on 09/13. His office will reach out to patient to ensure close f/u - back to baseline on 09/13 and appropriate for d/c home (2) History of transcarotid artery revascularization (TCAR): Status: Acute Problem details: - 08/13/24 - LEFT, Dr. Diehl - Left (TCAR procedure) transcarotid angioplasty and stenting utilizing 10 x 40 mm ENROUTE transcarotid stent and cerebral protection utilizing reversal of flow (3) History of CVA with residual deficit: Status: Acute Problem details: - 2017. Caused left visual field cut: Left homonymous hemianopsia DS: Summary Hospital Course Hospital Course: Rad was admitted to the hospital on 09/12 for a transient neurologic deficit (right facial numbness, right upper extremity clumsiness, slurred speech). No acute changes on CTA of head or neck, no acute changes on MRI of brain. Known previous CVA seen, known at 99% stenosis of right ICA seen. Reviewed case with stroke neurology and vascular surgery by phone; vascular surgery will confirm close follow-up for patient. He will continue 81 mg of aspirin and 75 mg of Plavix daily, in addition to his statin. Stroke Neurology recommends an outpatient P2Y12 laboratory assay. Comorbidities remained stable throughout stay, patient's baseline requesting discharge home on 09/13/2024. He was seen by our therapy teams who did not identify any additional needs. Time Spent with Patient Time attestation: Total time spent providing and/or coordinating discharge services: Time spent: Greater than 30 minutes Exam Narrative: Exam Narrative: GEN: Alert and oriented, nontoxic, resting comfortably in bedside chair HEENT: No new facial droop, EOMIs bilaterally, no scleral icterus CV: RRR R: LCTA bilaterally without concerning wheezing, rales, or rhonchi Skin: No concerning skin lesions or rashes on exposed skin Neuro: Baseline tremor noted, no new or acute neurologic symptoms Psych: Appropriate Const: Vital Signs, click to edit/add: Vital Signs - 24 hr 09/12/24 18:53 09/12/24 19:15 09/12/24 19:31 Temperature 98.4 F Pulse Rate 81 77 Pulse Rate [Pulse Oximeter] Pulse Rate [Right Pulse Oximeter] 81 Respiratory Rate 18 Blood Pressure Blood Pressure [Ri ght Arm] Blood Pressure [Ri ght Upper Arm] 201/101 H Pulse Oximetry 97 98 98 Oxygen Delivery Me thod Room Air 09/12/24 19:33 09/12/24 19:43 09/12/24 19:47 Temperature Pulse Rate 77 74 Pulse Rate [Pulse Oximeter] Pulse Rate [Right Pulse Oximeter] Respiratory Rate 16 Blood Pressure 157/89 H 209/118 H Blood Pressure [Ri ght Arm] Blood Pressure [Ri ght Upper Arm] Pulse Oximetry 98 96 Oxygen Delivery Me thod 09/12/24 19:55 09/12/24 19:56 09/12/24 20:00 Temperature Pulse Rate 75 77 74 Pulse Rate [Pulse Oximeter] Pulse Rate [Right Pulse Oximeter] Respiratory Rate Blood Pressure 198/99 H Blood Pressure [Ri ght Arm] Blood Pressure [Ri ght Upper Arm] Pulse Oximetry 99 98 98 Oxygen Delivery Me thod 09/12/24 20:02 09/12/24 20:11 09/12/24 20:12 Temperature Pulse Rate 74 72 Pulse Rate [Pulse Oximeter] Pulse Rate [Right Pulse Oximeter] Respiratory Rate Blood Pressure 206/104 H 215/116 H Blood Pressure [Ri ght Arm] Blood Pressure [Ri ght Upper Arm] Pulse Oximetry 98 97 98 Oxygen Delivery Me thod 09/12/24 20:15 09/12/24 20:30 09/12/24 20:32 Temperature Pulse Rate 72 72 71 Pulse Rate [Pulse Oximeter] Pulse Rate [Right Pulse Oximeter] Respiratory Rate Blood Pressure 135/64 Blood Pressure [Ri ght Arm] Blood Pressure [Ri ght Upper Arm] Pulse Oximetry 98 98 98 Oxygen Delivery Me thod 09/12/24 20:45 09/12/24 21:00 09/12/24 21:00 Temperature 98.4 F Pulse Rate 73 Pulse Rate [Pulse Oximeter] 78 Pulse Rate [Right Pulse Oximeter] Respiratory Rate 16 Blood Pressure Blood Pressure [Ri ght Arm] 211/136 H 211/136 H Blood Pressure [Ri ght Upper Arm] Pulse Oximetry 98 98 Oxygen Delivery [facility] Room Air 09/12/24 21:27 09/12/24 22:02 09/12/24 23:17 Temperature 98.6 F Pulse Rate 74 Pulse Rate [Pulse Oximeter] 70 Pulse Rate [Right Pulse Oximeter] Respiratory Rate 18 Blood Pressure Blood Pressure [Ri ght Arm] 203/104 H Blood Pressure [Ri ght Upper Arm] Pulse Oximetry 98 Oxygen Delivery [facility] Room Air Room Air 09/13/24 00:00 09/13/24 01:00 09/13/24 02:00 Temperature Pulse Rate Pulse Rate [Pulse Oximeter] 72 74 75 Pulse Rate [Right Pulse Oximeter] Respiratory Rate 18 18 16 Blood Pressure Blood Pressure [Ri ght Arm] 154/98 H 144/84 H 161/88 H Blood Pressure [Ri ght Upper Arm] Pulse Oximetry Oxygen Delivery [facility] 09/13/24 03:00 09/13/24 04:00 09/13/24 05:00 Temperature Pulse Rate Pulse Rate [Pulse Oximeter] 63 60 58 L Pulse Rate [Right Pulse Oximeter] Respiratory Rate 16 16 18 Blood Pressure Blood Pressure [Ri ght Arm] 163/85 H 167/95 H 178/97 H Blood Pressure [Ri ght Upper Arm] Pulse Oximetry Oxygen Delivery Sc thod 09/13/24 06:00 09/13/24 07:00 09/13/24 07:00 Temperature 98.0 F 98.0 F Pulse Rate Pulse Rate [Pulse Oximeter] 62 61 61 Pulse Rate [Right Pulse Oximeter] Respiratory Rate 18 18 18 Blood Pressure Blood Pressure [Ri ght Arm] 154/99 H 192/105 H Blood Pressure [Ri ght Upper Arm] Pulse Oximetry 98 98 Oxygen Delivery Me thod Room Air Room Air 09/13/24 08:00 09/13/24 10:00 09/13/24 11:00 Temperature 98.0 F 98.0 F Pulse Rate Pulse Rate [Pulse Oximeter] 61 73 63 Pulse Rate [Right Pulse Oximeter] Respiratory Rate 18 18 Blood Pressure Blood Pressure [Ri ght Arm] 164/100 H 189/97 H Blood Pressure [Ri ght Upper Arm] Pulse Oximetry 98 97 Oxygen Delivery Me thod Room Air Room Air 09/13/24 11:22 09/13/24 13:42 Temperature Pulse Rate 58 L Pulse Rate [Pulse Oximeter] 63 Pulse Rate [Right Pulse Oximeter] Respiratory Rate Blood Pressure Blood Pressure [Ri ght Arm] Blood Pressure [Ri ght Upper Arm] Pulse Oximetry Oxygen Delivery Me thod DS: Data Data Completed and Pending Completed studies during hospitalization: Procedures Insertion of Infusion Device into Upper Vein, Percutaneous Approach (06/26/24) Introduction of Other Anti-infective into Peripheral Vein, Percutaneous Approach (06/26/24) Labs on day of discharge: Labs from last 24 hours 09/13/24 09/12/24 06:05 19:21 WBC 5.29 6.41 RBC 3.96 L 4.18 L Hgb 11.2 L 12.0 L Hct 35.0 L 36.9 L MCV 88 88 MCH 28 29 MCHC 32 33 RDW Coeff of [place] 13.8 Plt Count 165 186 Neut % (Auto) 55.1 Lymph % (Auto) 29.6 [place] % (Auto) 10.5 Eos % (Auto) 4.1 Baso % (Auto) 0.5 Neut # (Auto) 3.54 Lymph # (Auto) 1.90 [place] # (Auto) 0.70 Eos # (Auto) 0.26 Baso # (Auto) 0.03 Abs Immat Gran (auto) 0.01 Imm/Tot Granulo (auto) 0.2 Sodium 139 137 Potassium 3.6 3.8 Chloride 109 106 Carbon Dioxide 21 21 Anion Gap 9 10 BUN 17 20 Creatinine 1.1 1.2 Estimated Creat Clear 57.08 52.33 Estimated GFR 66 59 Glucose 99 97 Calcium 8.5 8.7 Magnesium 1.9 Total Bilirubin 0.9 Direct Bilirubin 0.3 AST 17 ALT 6 Alkaline Phosphatase 85 Troponin I < 0.01 L C-Reactive Protein < 0.5 L Total Protein 7.0 Albumin 4.0 SARS-CoV-2 (PCR) Negative SARS-CoV-2 Influenza Type A (PCR) Negative PCR FLU A Influenza Type B (PCR) Negative PCR FLU B POC Creatinine 1.3 Discharge Plan Discharge Disposition: Home, Self-Care Date of Admission: 09/12/24 20:57 Attending Provider on Discharge: Yanira Ascencio Consulting Providers: Janay Ware Primary Care Provider: Kemar Tanner Condition: Stable Anticipated Discharge Date/Time: 09/13/24 13:41 Discharge Medications: New aspirin 81 mg capsule 81 mg PO DAILY Qty: 20 2RF Continued atorvastatin 10 mg tablet 10 mg PO QHS clopidogrel 75 mg tablet 75 mg PO DAILY cholecalciferol (vitamin D3) 50 mcg (2,000 unit) capsule 50 mcg PO DAILY finasteride [Proscar] 5 mg tablet 5 mg PO DAILY tamsulosin [Flomax] 0.4 mg capsule 0.8 mg PO QPM olmesartan 20 mg tablet 10 mg PO DAILY losartan 25 mg tablet 25 mg PO DAILY dorzolamide-timolol 22.3-6.8 mg/mL drops 1 drp ophthalmic (eye) BID Patient Comments: BOTH EYES carbidopa-levodopa 25-100 mg Tablet 1 tab PO .TIDAC Discharge Orders: Discharge Order (Routine); Ordered 09/13/24 Ordered By: Yanira Ascencio Patient Education: Aspirin (By mouth), Stroke (DC) Additional Instructions: Stay on 81mg of Aspirin and your 75mg of Plavix. Dr. Diehl and team will be in touch about earlier followup given your symptoms. See Dr. Tanner for followup, he can discuss ordering the P2Y12 assay as recommended per Dr. Ware of Stroke Neurology. Activity Level: Activity as Tolerated Discharge Diet: Regular Follow Up Appointments: Kemar Tanner MD [Primary Care Provider] - 09/22/24 10:30 am ([facility] for [facility] follow-up appointment) [facility] Info Instructions
--- NOTE | 2024-09-13 15:52 | PC.NURSE ---
Discharge: patient alert and oriented, neuros completed. Patient states he feels back to baseline. Patient ambulating indep with cane/walker to chair and bed. Patient's VSS, tolerating a reg diet. Patient's leg bag draining a patent. Discharged to home today at 1524, accompanied by spouse. Patients belongings sheet signed and discharge instructions given and signed. Patient and spouse verbalized understanding of instructions. Patient's 2 IV's removed, tip intact.
== END 2024-09-13 15:24 | disposition home or self-care (01) ==
LOC: ED 20:42 → MEDSURG 20:57
PROVIDERS: Admitting Provider Family Medicine; Emergency Provider Family Medicine; PCP Family Medicine; Visit Provider Family Medicine
DX: G45.9 Transient cerebral ischemic attack, unspecified (principal); Z98.62 Peripheral vascular angioplasty status; H53.462 Homonymous bilateral field defects, left side; I69.398 Other sequelae of cerebral infarction; D64.9 Anemia, unspecified; I12.9 Hypertensive chronic kidney disease with stage 1 through stage 4 chronic kidney disease, or unspecified chronic kidney disease; N18.30 Chronic kidney disease, stage 3 unspecified; R33.9 Retention of urine, unspecified; R41.89 Other symptoms and signs involving cognitive functions and awareness; G20.A1 Parkinson's disease without dyskinesia, without mention of fluctuations; K21.9 Gastro-esophageal reflux disease without esophagitis; Z79.01 Long term (current) use of anticoagulants; Z96.0 Presence of urogenital implants; Z87.891 Personal history of nicotine dependence
CPT/HCPCS: 36415; 70450; 70496; 70498; 70551; 80048; 80076; 82565; 83735; 84484; 85025; 85027; 86140; 87631; 92610; 93005; 94761; 96360; 96361; 97116; 97162; 97165; 97535; 99284; G0378; A9270; J7030; Q9967

== ENCOUNTER 2024-10-13 11:30 | Outpatient (CLI) | payer MEDICARE, BC, SELFPAY | END 2024-10-13 11:31 | disposition home or self-care (01) | LOC: AMB 10-14 10:47 | PROVIDERS: PCP Family Medicine; Visit Provider Family Medicine | DX: I46.9 Cardiac arrest, cause unspecified (principal) ==